=== PATIENT | female | born 1990 | race Caucasian/White ===

== ENCOUNTER 2019-09-27 17:52 | Observation (INO) | payer BC, SELFPAY ==
[2019-09-27 18:14] VITALS: BP 122/106; PULSE 112; RESP 16; TEMP 36.8; O2SAT 99; BMI 34.7
--- NOTE | 2019-09-27 18:19 | ED_ITS ---
Entered by Kamlesh Kaplan, acting as scribe for Jefferson Gatica DO HPI - Abdominal Pain General: Chief Complaint: Abdominal Pain Stated Complaint: right sided abd pain Time Seen by Provider: 09/27/19 18:27 History of Present Illness: HPI narrative: 29 yo female presents with abd pain. Pt states that she is having pain last night in the middle of the night. Pt states that she has had fever off and on since last night. Pt states that she has had diarrhea. MD elicited complaint: abdominal pain Associated Symptoms: Reports chills, diarrhea, fever(s) and nausea; Denies dysuria and hematuria Review of Systems Const: Reports: fever and chills Eyes: Denies: change in vision or blurry vision ENMT: Denies: painful swallowing, swelling of lips/tongue, bleeding gums, dental pain, Change in hearing, nose bleeds, post nasal drip or facial/sinus pain Card: Denies: chest pain, palpitations, irregular heart rhythm, edema, swelling of feet/ankles, shortness of breath on exertion or shortness of breath when lying down Resp: Denies: shortness of breath, productive cough, non-productive cough or wheezing GI: Reports: abdominal pain, nausea and diarrhea : Denies: painful urination, urinary frequency, urinary urgency or blood in urine Musc: Reports: back pain; Denies: neck pain, redness or joint warmth Skin/Breast: Denies: rash, itching or redness Neuro: Denies: headache, dizziness, vertigo, confusion or seizure-like activity Psych: Denies: anxiety Endo: Reports: other (pressure when she urinates) PFSH ED PFSH: Surgical History History of cholecystectomy Social History Smoking and tobacco status: current every day smoker Physical Exam Const: GENERAL APPEARANCE: well developed ORIENTATION/CONSCIOUSNESS: Yes oriented to person, Yes oriented to place and Yes oriented to time HENMT: COMMON NORMALS: normocephalic, external ears normal and external nose normal HEAD & SCALP: normocephalic; no scalp tenderness FACE & SINUS: normal facial exam NOSE: external nose normal and no nasal discharge EXTERNAL EAR: Yes external ears normal MOUTH: tongue normal TEETH & GINGIVA: no abnormal tooth and associated gingiva THROAT: posterior oropharynx normal; no peritonsillar mass Eye: COMMON NORMALS: PERRL, EOMs intact bilaterally and conjunctivae normal EYELID: eyelids normal CONJUNCTIVA: Yes conjunctivae normal PUPIL: Yes PERRL Chest: COMMONS NORMALS: inspection of chest normal CHEST: No tenderness Resp: COMMON NORMALS: clear to auscultation bilaterally EFFORT & INSPECTION: No tachypneic, No respiratory distress, No retractions, No uses accessory muscles and No tracheal deviation AUSCULTATION: clear to auscultation bilaterally, no rhonchi, no wheezes and lung sounds not diminished Cardio: COMMON NORMALS: regular rate and regular rhythm RATE: regular rate RHYTHM: regular rhythm HEART SOUNDS: no murmurs PERIPHERAL PULSES: radial pulses present GI: COMMON NORMALS: soft to palpation PALPATION: Yes soft and Yes tender Details: RLQ : BLADDER/KIDNEY EXAM: Yes CVA tenderness Back/Pelvis: GENERAL BACK: Yes CVA tenderness CVA tenderness: right Neuro: SENSORIUM/ORIENTATION: Yes oriented to person, Yes oriented to place and Yes oriented to time Psych: COMMON NORMALS: mental status grossly normal Skin: COMMON NORMALS: no rashes or lesions noted GENERAL SKIN EXAM: no rashes or lesions noted Course Consultations: Consultation #1: bossman Time: 20:36 Vital Signs: Vital signs: Vital Signs Temperature 98.5 F 09/28/19 17:35 Pulse Rate 95 09/28/19 17:35 Respiratory Rate 18 09/28/19 17:35 Blood Pressure 121/76 09/28/19 17:35 Pulse Oximetry 93 09/28/19 17:35 MDM - Abdominal Pain MDM Narrative: Medical decision making narrative: 29-year-old female with very focal right lower quadrant pain. Low-grade temps. No leukocytosis. Other lab oratory is benign. She has significant tenderness. CT reveals a metallic foreign body in or near her appendix. The read says no definite appendicitis surrounding, but this is very suspicious. Spoke with surgery. He will observe her for serial exams. Lab Data: Labs: Lab Results 09/27/19 09/27/19 09/27/19 Range/Units 18:30 18:30 18:30 WBC 13.5 H (4.0-10.0) 10^3/ uL RBC 4.99 (4.1-5.3) 10^6/u L Hgb 13.4 (11.5-15.3) g/dL Hct 41.8 (37.0-47.0) % MCV 83.8 (81-99) fL MCH 26.9 L (28.0-34.0) pg MCHC 32.1 (30.0-36.0) g/dL RDW 13.0 (12.1-15.1) % Plt Count 244 (130-400) 10^3/c mm MPV 10.8 H (7.4-10.4) fL Neut % (Auto) 73.9 % Lymph % (Auto) 18.8 % [place] % (Auto) 5.4 % Eos % (Auto) 1.5 % Baso % (Auto) 0.1 % Neut # (Auto) 10.0 H (1.8-7.7) 10^3/u L Lymph # (Auto) 2.5 (0.8-4.8) 10^3/u L [place] # (Auto) 0.7 (0.2-0.9) 10^3/u L Eos # (Auto) 0.2 (0.0-0.8) 10^3/u L Baso # (Auto) 0.0 (0.0-0.1) 10^3/u L Nucleated RBC % (a uto) 0 % Nucleated RBCs # 0.0 /100WBC Sodium 135 L (136-145) mmol/L Potassium 3.6 (3.5-5.1) mmol/L Chloride 97 L (98-107) mmol/L Carbon Dioxide 24 (22-29) mmol/L Anion Gap 17.6 (5-19) BUN 6 (6-20) mg/dL Creatinine 0.6 (0.5-0.9) mg/dL GFR Calculation 119.0 (90-130) mL/min Glucose 91 (65-115) mg/dL Lactate 1.0 (0.5-2.2) mmol/L Calcium 10.0 (8.5-10.5) mg/dL Total Bilirubin 0.3 (0.15-1.2) mg/dL AST 18 (0-32) U/L ALT 18 (0-33) U/L Alkaline Phosphata se 106 H (35-105) IU/L C-Reactive Protein 51.0 H (0.0-4.9) mg/L Total Protein 8.2 (6.6-8.7) g/dL Albumin 4.6 (3.5-5.2) g/dL Globulin 3.6 (1.3-4.6) g/dL Lipase 18 (13-60) U/L HCG, Qual (Negative) 09/27/19 Range/Units 18:30 WBC (4.0-10.0) 10^3/ uL RBC (4.1-5.3) 10^6/u L Hgb (11.5-15.3) g/dL Hct (37.0-47.0) % MCV (81-99) fL MCH (28.0-34.0) pg MCHC (30.0-36.0) g/dL RDW (12.1-15.1) % Plt Count (130-400) 10^3/c mm MPV (7.4-10.4) fL Neut % (Auto) % Lymph % (Auto) % [place] % (Auto) % Eos % (Auto) % Baso % (Auto) % Neut # (Auto) (1.8-7.7) 10^3/u L Lymph # (Auto) (0.8-4.8) 10^3/u L [place] # (Auto) (0.2-0.9) 10^3/u L Eos # (Auto) (0.0-0.8) 10^3/u L Baso # (Auto) (0.0-0.1) 10^3/u L Nucleated RBC % (a uto) % Nucleated RBCs # /100WBC Sodium (136-145) mmol/L Potassium (3.5-5.1) mmol/L Chloride (98-107) mmol/L Carbon Dioxide (22-29) mmol/L Anion Gap (5-19) BUN (6-20) mg/dL Creatinine (0.5-0.9) mg/dL GFR Calculation (90-130) mL/min Glucose (65-115) mg/dL Lactate (0.5-2.2) mmol/L Calcium (8.5-10.5) mg/dL Total Bilirubin (0.15-1.2) mg/dL AST (0-32) U/L ALT (0-33) U/L Alkaline Phosphata se (35-105) IU/L C-Reactive Protein (0.0-4.9) mg/L Total Protein (6.6-8.7) g/dL Albumin (3.5-5.2) g/dL Globulin (1.3-4.6) g/dL Lipase (13-60) U/L HCG, Qual Negative (Negative) Discharge Plan Discharge Patient Disposition: Admitted As Inpatient Admit Provider: Jorge Maldonado Condition: Stable Discharge Orders: Discharge Order (Routine); Ordered 09/28/19 Ordered By: Jorge Maldonado Referrals: Jorge Maldonado MD [Physician] - 2 weeks (Please call Sunday to set up a follow up appointment) Patient Instructions: Hydrocodone/Acetaminophen (By mouth), Laxative, Stool Softeners (By mouth), Laparoscopic Appendectomy (DC) Discharge Date/Time: 09/27/19 21:25 Coding Level of Care Code ED Medical Pathology Teacher for Chg Fwd Exam Comprehensive The documentation recorded by the Eusebio gambino Kialy, accurately reflects the service I personally performed and the decisions made by En lutz Jeremy John, DO Sep 27, 2019 17:52
--- NOTE | 2019-09-27 18:37 | CTR_ITS ---
PROCEDURE INFORMATION: Exam: CT Abdomen And Pelvis With Contrast Exam date and time: 09/27/2019 7:38 PM Age: 29 years old Clinical indication: Abdominal pain; Localized; Right; Prior surgery; Surgery date: 6+ months; Surgery type: Gb; Patient HX: C/O R sided abd pain w n/v/d since yesterday; Additional info: Rlq pain TECHNIQUE: Imaging protocol: Computed tomography of the abdomen and pelvis with intravenous contrast. Total DLP: 1131.42 mGy-cm Radiation optimization: All CT scans at this facility use at least one of these dose optimization techniques: automated exposure control; mA and/or kV adjustment per patient size (includes targeted exams where dose is matched to clinical indication); or iterative reconstruction. Contrast material: OMNI 300; Contrast volume: 95 ml; Contrast route: 20G; COMPARISON: CT abdomen pelvis w con* [id number] 12/27/2016 12:31 PM FINDINGS: Lungs: A calcified granuloma is present in the right lower lobe. Liver: Normal. No mass. Gallbladder and bile ducts: The gallbladder has been removed. No biliary ductal dilatation. Pancreas: Normal. No ductal dilation. Spleen: Normal. No splenomegaly. Adrenals: Normal. No mass. Kidneys and ureters: Normal. No hydronephrosis. Stomach and bowel: Unremarkable. No obstruction. No mucosal thickening. Appendix: A tiny metallic density foreign body is present in the proximal appendix. The appendix appears otherwise normal. No evidence of acute appendicitis. Intraperitoneal space: Trace free fluid in the pelvis is likely physiologic. Vasculature: Unremarkable. No abdominal aortic aneurysm. Lymph nodes: Unremarkable. No enlarged lymph nodes. Bladder: Unremarkable as visualized. Reproductive: The uterus and ovaries appear normal. Bones/joints: Unremarkable. No acute fracture. Soft tissues: Unremarkable. CT/CT abdomen pelvis w con* [id number] IMPRESSION: No acute abnormality is seen. A metallic density object is present in the proximal appendix. No evidence of acute appendicitis. Radiation Dose CTDIVOL = (mGy): DLP = 1131.42 (mGy-cm)
[2019-09-27 18:38] VITALS: O2SAT 97
[2019-09-27] MEDS: sodium chloride 0.9% 1,000 ML 999 ML IV (18:52)
[2019-09-27] MEDS: ketorolac 30 mg/mL INJ IVP (18:55)
[2019-09-27] MEDS: ondansetron 2 mg/ML SDV 2 mL 4 MG IVP (18:55)
[2019-09-27] MEDS: morphine 4 mg/mL SDV 1 mL IVP ×2 (18:56→23:12)
[2019-09-27 19:05] LABS: Basophils % 0.1 %; Eosinophils # 0.2 10^3/uL (0.0-0.8); Eosinophils % 1.5 %; Hematocrit 41.8 % (37.0-47.0); Hemoglobin 13.4 g/dL (11.5-15.3); Lymphocytes # 2.5 10^3/uL (0.8-4.8); Lymphocytes % 18.8 %; Mean Corpuscular HGB Conc 32.1 g/dL (30.0-36.0); Mean Corpuscular Hemoglobin 26.9 pg (28.0-34.0); Mean Corpuscular Volume 83.8 fL (81-99); Mean Platelet Volume 10.8 fL (7.4-10.4); Monocytes # 0.7 10^3/uL (0.2-0.9); Monocytes % 5.4 %; Neutrophils % 73.9 %; Nucleated Red Blood Cells % 0 %; Platelet Count 244 10^3/cmm (130-400); Red Blood Count 4.99 10^6/uL (4.1-5.3); White Blood Count 13.5 10^3/uL (4.0-10.0)
[2019-09-27 19:12] LABS: HCG, Serum Qual Negative (Negative)
[2019-09-27 19:14] LABS: Alanine Aminotransferase 18 U/L (0-33); Albumin Level 4.6 g/dL (3.5-5.2); Alkaline Phosphatase 106 IU/L (35-105); Anion Gap 17.6 (5-19); Aspartate Amino Transferase 18 U/L (0-32); Blood Urea Nitrogen 6 mg/dL (6-20); Carbon Dioxide 24 mmol/L (22-29); Chloride 97 mmol/L (98-107); Globulin 3.6 g/dL (1.3-4.6); Glucose 91 mg/dL (65-115); Lipase 18 U/L (13-60); Potassium 3.6 mmol/L (3.5-5.1); Sodium 135 mmol/L (136-145); Total Bilirubin 0.3 mg/dL (0.15-1.2); Total Protein 8.2 g/dL (6.6-8.7)
[2019-09-27] MEDS: iohexol 300 mg/mL 100 mL Btl IV (19:45)
[2019-09-27 19:53] VITALS: RESP 16
[2019-09-27] MEDS: HYDROmorphone 1 mg/mL INJ 1 mL IVP (19:53)
[2019-09-27] MEDS: piperacillin-tazobactam 3.375 GM in sodium chloride 0.9% (plus) 50 ML IV (21:05)
[2019-09-27 21:24] VITALS: BP 115/66; PULSE 109; RESP 18; O2SAT 95
[2019-09-27 21:35] LABS: Add Urine Microscopic? NO
[2019-09-27 21:37] LABS: Bilirubin Urine Neg (NEGATIVE); Blood Urine Neg (Negative); Glucose Urine UA Norm (Normal); Ketones Urine Negative (Negative); Leukocyte Esterase Urine Negative (Negative); Nitrate Urine Negative (Negative); Protein Urine Neg (Negative); Urine Appearance Clear (CLEAR); Urine Color Straw (Yellow); Urobilinogen Urine Norm (Negative); pH Urine 6 (5-7)
[2019-09-27 22:04] VITALS: BP 115/78; PULSE 99; RESP 18; TEMP 37; O2SAT 96
[2019-09-27] MEDS: sodium chloride 0.9% 1,000 ML 150 ML IV (23:10)
[2019-09-27 23:12] VITALS: RESP 18; O2SAT 99
[2019-09-28] VITALS (18 sets, daily range): BP systolic 95–126; BP diastolic 64–85; PULSE 75–100; RESP 12–22; TEMP 36.3–36.9; O2SAT 91–100
[2019-09-28] MEDS: lanolin oint 7 gm 1 APPLIC TOPICAL (01:07)
--- NOTE | 2019-09-28 01:21 | PC.NURSE ---
Patient was informed by this nurse that her diet had changed to NPO tonight as her brought food in for her. She asked that I request permission for her to eat since she was told in the ED that should would be able to eat until midnight. This nurse walked out of the room and called Dr. Maldonado if should could eat her dinner, to which he ordered her clear liquid until midnight, then NPO after midnight. Upon entering patient room to inform her of the doctors decision, she had already consumed her entire meal. Patient stated, she had already taken a bite, so she didn't figure it would make any difference now. Last food consumed would be approximately 2230. Patient was educated on her diet plan and the risks eating and drinking before surgery.
[2019-09-28] MEDS: piperacillin-tazobactam 3.375 GM in sodium chloride 0.9% (plus) 50 ML IV (05:33)
[2019-09-28] MEDS: sodium chloride 0.9% 1,000 ML 150 ML IV ×2 (05:40→11:32)
[2019-09-28 05:46] LABS: Basophils % 0.1 %; Eosinophils # 0.2 10^3/uL (0.0-0.8); Eosinophils % 1.8 %; Hematocrit 37.7 % (37.0-47.0); Hemoglobin 11.9 g/dL (11.5-15.3); Lymphocytes # 2.7 10^3/uL (0.8-4.8); Lymphocytes % 28.9 %; Mean Corpuscular HGB Conc 31.6 g/dL (30.0-36.0); Mean Corpuscular Hemoglobin 27.9 pg (28.0-34.0); Mean Corpuscular Volume 88.3 fL (81-99); Mean Platelet Volume 10.8 fL (7.4-10.4); Monocytes # 0.7 10^3/uL (0.2-0.9); Monocytes % 6.8 %; Neutrophils # 5.9 10^3/uL (1.8-7.7); Neutrophils % 62.1 %; Nucleated Red Blood Cells % 0 %; Platelet Count 204 10^3/cmm (130-400); Red Blood Count 4.27 10^6/uL (4.1-5.3); Red Cell Distribution Width 13.2 % (12.1-15.1); White Blood Count 9.5 10^3/uL (4.0-10.0)
[2019-09-28 06:05] LABS: Alanine Aminotransferase 198 U/L (0-33); Albumin Level 3.6 g/dL (3.5-5.2); Alkaline Phosphatase 103 IU/L (35-105); Anion Gap 13.6 (5-19); Aspartate Amino Transferase 225 U/L (0-32); Blood Urea Nitrogen 7 mg/dL (6-20); Calcium 8.9 mg/dL (8.5-10.5); Carbon Dioxide 25 mmol/L (22-29); Chloride 105 mmol/L (98-107); Globulin 2.7 g/dL (1.3-4.6); Glucose 105 mg/dL (65-115); Potassium 3.6 mmol/L (3.5-5.1); Sodium 140 mmol/L (136-145); Total Bilirubin 0.2 mg/dL (0.15-1.2); Total Protein 6.3 g/dL (6.6-8.7)
--- NOTE | 2019-09-28 07:15 | PC.NURSE ---
Patient taken to OR.
--- NOTE | 2019-09-28 07:43 | ANES.PREANE2 ---
Pre-Anesthetic Assessment Pre-Anesthetic Assessment: Height/Weight: Height 1.57 m Weight 86.183 kg Temp Pulse Resp BP Pulse Ox 97.9 F 86 18 95/65 94 09/28/19 04:00 09/28/19 04:00 09/28/19 04:00 09/28/19 04:00 09/28/19 04:00 Preop Diagnosis: Appendicitis Proposed Procedure: Operation Date: 09/28/19 08:20 Proposed Procedures p Laparoscopic Appendectomy, possible open(Not Applicable) - Jorge Maldonado MD Familial anesthetic complications: Hard time coming out of it Was Beta Noel taken within 24 hours: N/A Last intake: Intake Last Liquid Date 09/27/19 Last Liquid Time 23:55 Last Solid Date 09/27/19 Last Solid Time 22:30 Social: Social History: Tobacco and No alcohol Packs per day: 0.5 ppd Exam: Pre-Anes Outpt Exam: alert, oriented x 3, clear to auscultation bilaterally and regular rate & rhythm Airway: Cervical ROM: WNL MP: 2 Additional comments: missing Pulmonary: Pulmonary: None reported CV/HEM: CV/HEM: None reported : : None reported Hepatic: Hepatic: None reported GI: GI: GERD Metabolic: Metabolic: None reported Musc/skel: Musc/skel: None reported Neuropsych: Neuropsych: None reported Anesthetic Plan: ASA status: 2E Anesthesia: General Risk of > 500 ml blood loss (7ml/kg in children): No Meds/Allergies Current Medications: Current Medications Generic Name Dose Route Start Last Admin Trade Name Freq PRN Reason Stop Dose Admin Sodium Chloride 1,000 mls @ 150 m ls/hr 09/27/19 22:04 09/28/19 05:40 Sodium Chloride 0.9% IV 150 mls/hr .Q6H40M SAMMY Administration Piperacillin Sod/T azobactam 50 mls @ 12.5 mls /hr 09/27/19 22:30 09/28/19 05:33 Sod 3.375 gm/ So dium Chloride IV 12.5 mls/hr Q8H SAMMY Administration Protocol As Directed Lanolin 1 applic 09/28/19 00:58 09/28/19 01:07 Lanolin Oint TOPICAL 1 tube PRN PRN Administration DRYNESS Morphine Sulfate 4 mg 09/27/19 22:04 09/27/19 23:12 Morphine IVP 4 mg Q4H PRN Administration SEVERE PAIN PFSH Anesthesia PFSH: Surgical History (Updated 09/27/19 @ 18:36 by Kamlesh Kaplan) History of cholecystectomy Social History Smoking and tobacco status: current every day smoker Female Reproductive History: Date of last menstrual period: 09/11/19 Data Anesthesia CBC & Chem 7: 09/28/19 05:07 09/28/19 05:07 Other Labs: Laboratory Results - last 48 hr 09/27/19 09/27/19 09/27/19 18:30 18:30 18:30 WBC 13.5 H RBC 4.99 Hgb 13.4 Hct 41.8 MCV 83.8 MCH 26.9 L MCHC 32.1 RDW 13.0 Plt Count 244 MPV 10.8 H Neut % (Auto) 73.9 Lymph % (Auto) 18.8 [place] % (Auto) 5.4 Eos % (Auto) 1.5 Baso % (Auto) 0.1 Neut # (Auto) 10.0 H Lymph # (Auto) 2.5 [place] # (Auto) 0.7 Eos # (Auto) 0.2 Baso # (Auto) 0.0 Nucleated RBC % (auto) 0 Nucleated RBCs # 0.0 Sodium 135 L Potassium 3.6 Chloride 97 L Carbon Dioxide 24 Anion Gap 17.6 BUN 6 Creatinine 0.6 GFR Calculation 119.0 Glucose 91 Lactate 1.0 Calcium 10.0 Total Bilirubin 0.3 AST 18 ALT 18 Alkaline Phosphatase 106 H C-Reactive Protein 51.0 H Total Protein 8.2 Albumin 4.6 Globulin 3.6 Lipase 18 HCG, Qual Urine Color Urine Appearance Urine pH Ur Specific [place] Urine Protein Urine Glucose (UA) Urine Ketones Urine Blood Urine Nitrate Urine Bilirubin Urine Urobilinogen Ur Leukocyte Esterase 09/27/19 09/27/19 09/28/19 18:30 21:16 05:07 WBC 9.5 RBC 4.27 Hgb 11.9 Hct 37.7 MCV 88.3 D MCH 27.9 L MCHC 31.6 RDW 13.2 Plt Count 204 MPV 10.8 H Neut % (Auto) 62.1 Lymph % (Auto) 28.9 [place] % (Auto) 6.8 Eos % (Auto) 1.8 Baso % (Auto) 0.1 Neut # (Auto) 5.9 Lymph # (Auto) 2.7 [place] # (Auto) 0.7 Eos # (Auto) 0.2 Baso # (Auto) 0.0 Nucleated RBC % (auto) 0 Nucleated RBCs # 0.0 Sodium Potassium Chloride Carbon Dioxide Anion Gap BUN Creatinine GFR Calculation Glucose Lactate Calcium Total Bilirubin AST ALT Alkaline Phosphatase C-Reactive Protein Total Protein Albumin Globulin Lipase HCG, Qual Negative Urine Color Straw Urine Appearance Clear Urine pH 6 Ur Specific [place] 1.000 L Urine Protein Neg Urine Glucose (UA) Norm Urine Ketones Negative Urine Blood Neg Urine Nitrate Negative Urine Bilirubin Neg Urine Urobilinogen Norm Ur Leukocyte Esterase Negative 09/28/19 05:07 WBC RBC Hgb Hct MCV MCH MCHC RDW Plt Count MPV Neut % (Auto) Lymph % (Auto) [place] % (Auto) Eos % (Auto) Baso % (Auto) Neut # (Auto) Lymph # (Auto) [place] # (Auto) Eos # (Auto) Baso # (Auto) Nucleated RBC % (auto) Nucleated RBCs # Sodium 140 Potassium 3.6 Chloride 105 Carbon Dioxide 25 Anion Gap 13.6 BUN 7 Creatinine 0.6 GFR Calculation 119.0 Glucose 105 Lactate Calcium 8.9 Total Bilirubin 0.2 AST 225 H ALT 198 H Alkaline Phosphatase 103 C-Reactive Protein Total Protein 6.3 L D Albumin 3.6 Globulin 2.7 Lipase HCG, Qual Urine Color Urine Appearance Urine pH Ur Specific [place] Urine Protein Urine Glucose (UA) Urine Ketones Urine Blood Urine Nitrate Urine Bilirubin Urine Urobilinogen Ur Leukocyte Esterase Cardiac Studies: No Data to Display
[2019-09-28] MEDS: sodium chloride 0.9% 1,000 ML 100 ML IV (07:44)
--- NOTE | 2019-09-28 07:46 | P.HP_ITS ---
Providers/Chief Complaint Admitting Physician: Jorge Maldonado MD Primary Care Provider: Mendoza Paredes MD Chief Complaint: right sided abd pain History of Present Illness Sharri Alvarado is a 29 year old female who presented to the ER last night with 24-hour history of right-sided abdominal pain. Patient states that day before yesterday she had nausea and vomiting most of the day and subsequently that night she woke up with right-sided abdominal pain which persisted through whole of yesterday. She was admitted to the hospital for observation and today she complains of right lower quadrant pain associated nausea. No fevers or chills. She has loose stools but denies any diarrhea. She states that she has a history of ovarian cysts in the past Review of Systems General: Reports: 10 or more systems reviewed and unremarkable except in HPI and below Medications/Allergies Home Medications Medication Instructions Recorded Confirmed Last Taken Type multivitamin 1 tab PO DAILY 09/27/19 09/27/19 Unknown History ondansetron HCl [Zofran] 4 - 8 mg PO Q6H PRN 09/27/19 09/27/19 09/26/19 History 8 mg Allergies Allergy/AdvReac Type Severity Reaction Status Date / Time No Known Allergies Allergy Verified 09/27/19 18:18 PFSH Acute PFSH: Surgical History History of cholecystectomy Social History Smoking and tobacco status: current every day smoker Female Reproductive History: Date of last menstrual period: 09/11/19 Vitals/I&O/Wt Last Vital Signs Temp 97.9 F 09/28/19 04:00 Pulse 86 09/28/19 04:00 Resp 18 09/28/19 04:00 BP 95/65 09/28/19 04:00 Pulse Ox 94 09/28/19 04:00 09/27/19 09/28/19 09/28/19 22:59 06:59 14:59 Intake Total 1000 / 2935 1935 / 2935 300 / 300 Output Total 450 / 450 Balance 1000 / 2485 1485 / 2485 300 / 300 Weight last 48 hrs Weight 190 lb Physical Exam Narrative: EXAM NARRATIVE: HEENT: Normocephalic Eye: Sclera /conjunctiva normal Respiratory and chest: Bilateral clear breath sounds on auscultation Cardiovascular: Normal S1 and S2 heart sounds Abdomen: Soft to palpation, tender right lower quadrant Neurological: Oriented to place person and time Skin: Intact, no lesions appreciated on gross exam Data : 09/28/19 05:07 09/28/19 05:07 A&P Assessment and plan (1) Right lower quadrant pain: 29-year-old female with right lower quadrant pain, nausea and vomiting. CT scan showed no significant periappendiceal stranding though she is tender in the right lower quadrant. Her white count is elevated at 14 on initial presentation. There was no cyst noted on CT scan and there is no significant free fluid in the pelvis to suggest a ruptured ovarian cyst. Did discuss with the patient that the findings of the CT scan was not very impressive and that she could have other etiology that could mimic appendicitis, either way we will take the appendix out. Status: Acute Code(s): R10.31 - Right lower quadrant pain Attestations Medical Necessity Statement*: Right lower quadrant pain, most likely clinically appears to be acute appendicitis, plan for laparoscopic possible open appendectomy Coding Level of Care Code Acute Sports Activities Foul Judge for [facility] Justine Diagnoses Right lower quadrant pain R10.31
--- NOTE | 2019-09-28 09:05 | PM.OP ---
Operative Report Date of procedure: September 28, 2019 Pre-op Diagnosis: Appendicitis Post-op Diagnosis: Normal appendix Ruptured hemorrhagic cyst Procedure Done: Laparoscopic appendectomy Pathology: Appendix Surgeon: Jorge Maldonado Anesthesia: General Condition: stable Disposition: PACU Procedure: The patient was taken to the Operating Room and intubated under general anesthesia after antibiotic had been administered. Using a 15 blade, a 1-cm infraumbilical incision was made and using open Katherine technique, the peritoneal cavity was entered. A 12mm port with balloon was placed and 15 mm of pneumoperitoneum was created and 10-mm 30 degree scope was introduced. Two separate 5mm ports were placed in the left and right lower quadrant under direct visualization. The appendix was noted in the right lower quadrant and appeared normal the ileum and jejunum was examined and there is no evidence of Meckel's diverticulum or any other pathology though a small amount of hemorrhagic fluid noted in the pelvis likely secondary to ruptured ovarian cyst though no other cyst was noted on the ovary. Using [place] forceps, an opening was made in the mesoappendix near the base of the appendix. An Endo JOHNNY stapler 45mm long 3.5mm blue load was introduced to divide the appendix at it's base. Using electrocautery, the mesoappendix including the appendicular artery was divided. There was no bleeding noted and the staple line appeared intact. The right lower quadrant was irrigated with saline and an EndoCatch bag was introduced to remove the appendix. All three ports were removed under direct visualization and there was no bleeding noted on the port sites. 10 cc of 0.5% Marcaine was infiltrated at the port sites. The fascia at the umbilical port was closed using figure of eight 0-Vicryl sutures and subcutaneous tissue was approximated using 3-0 Vicryl and skin at all 3 port sites was closed using 4-0 Monocryl and Dermabond.
[2019-09-28] MEDS: fentaNYL 50 mcg/mL INJ 2mL IVP ×2 (09:28→09:33)
--- NOTE | 2019-09-28 10:24 | PC.NURSE ---
PATIENT BACK TO FLOOR FROM OR.
[2019-09-28] MEDS: HYDROcodone-acetaminophen 5-325 mg Tablet 1 TAB PO (11:27)
--- NOTE | 2019-09-28 12:05 | PC.CHAP ---
Pastoral Care Encounter/Spiritual Assessment Type of Contact [] Declined fiberglass container winding operator visit [] Patient/Family/Request visit [] Outpatient visit [] Follow-up visit [] Physician referral [] Code/Alert [] Routine visit [] Staff referral [] Actively dying [] Patient sleeping [] Family support [] [] Out of room [] Palliative care [] [] Receiving care in room [] Pre-surgical visit [] Trauma [] Long length of stay [] ICU visit [] Other: Relational/Emotional Strength [x] Patient feels connected with others/family/visitors/staff [] Distress [] Loneliness/isolation [] Abandonment Spirituality of Patient [x] Person of Demetria [] Attends Restorationist of their Demetria [x] Believes in Prayer [] Reads Bible or Advent materials [] There are Spiritual issues to be addressed Can Technician Interventions [x] Prayer [x] Active listening [x] Non-anxious presence [x] Spiritual/emotional support [] Crisis/trauma care [] Spiritual counseling [] Bereavement support [] Provided bereavement packet [] Provided Bible/devotional materials [] Provided toy/stuffed animal, coloring book to patient or family member [] Provided Communion [] Anointing/[place] [] Salvation [x] Completed spiritual assessment [] Other: Impact on Illness or Injury [] Angry [] Fearful [] Anxious [] Often cries [] Exhaustion [] Unable to work [] Unable to attend moravian [] Unable to walk/stand [] Unable to read [] Unable to drive [] Unable to eat/drink [] Unable to sleep [] Unable to be with family [] Patient intubated [] Other: Summary Chaplains prayed with patient, family member and staff. Time spent with patient 15 minutes.
--- NOTE | 2019-09-28 16:41 | PC.NURSE ---
DISCHARGE SUMMARY Patient was given discharge orders. Follow up appointment is to be made by patient on Sunday. Prescriptions and script given to patient. Iv discontinued and vital signs stable.
== END 2019-09-28 16:00 | disposition home or self-care (01) ==
LOC: ER 19:24 → MEDSURG 20:54
PROVIDERS: Admitting Provider Surgery; Emergency Provider Emergency Medicine; Family Provider Family Medicine; PCP Family Medicine; Visit Provider Surgery
PROC: 0DTJ4ZZ Resection of Appendix, Percutaneous Endoscopic Approach (ICD-10-PCS; CPT 44970; principal; 2019-09-28 08:00)
DX: K35.80 Unspecified acute appendicitis (principal); F17.210 Nicotine dependence, cigarettes, uncomplicated
CPT/HCPCS: 44970; 12345; 36415; 74177; 80053; 81003; 83605; 83690; 84703; 85025; 86140; 88304; 96361; 96365; 96374; 96375; 99283; 99285; A9270; G0378; J0131; J0330; J1100; J1170; J1885; J2001; J2250; J2270; J2405; J2543; J2704; J3010; J3490; J7030; Q9967

== ENCOUNTER 2020-07-09 14:05 | Emergency (ER) | payer BC, MEDICAID, SELFPAY ==
[2020-07-09 14:23] VITALS: BP 146/85; PULSE 86; RESP 18; TEMP 37; O2SAT 100; BMI 34.8
--- NOTE | 2020-07-09 14:48 | W.ED.NAVMDI ---
Documented by User: GENTRY Cope 07/09/20 17:05 HPI - Nausea/Vomiting/Diarrhea General: Chief complaint: Nausea/Vomiting/Diarrhea Stated complaint: 8 WKS PREG, VOMITING Time Seen by Provider: 07/09/20 14:28 Source: patient Mode of arrival: ambulatory Limitations: no limitations History of Present Illness: HPI Narrative: 29-year-old female comes in today for complaints of nausea and vomiting. Patient is 8 weeks . Patient denies any fever. Patient reports having a awful taste in her mouth all the time. Patient had COVID-19 in April of this year. Patient appears well. Patient appears no acute distress. MD elicited complaint: nausea and vomiting Review of Systems General: Reports: 10 or more systems reviewed and unremarkable except in HPI and below GI: Reports: nausea and vomiting PFSH ED PFSH: Medical History Ovarian cyst Surgical History History of cholecystectomy Status post laparoscopic appendectomy Social History Smoking and tobacco status: current every day smoker Female Reproductive History: Date of last menstrual period: 09/11/19 Physical Exam Const: COMMON NORMALS: no acute distress and patient oriented x3 GENERAL APPEARANCE: cooperative HENMT: COMMON NORMALS: normocephalic and Normal external nose present HEAD & SCALP: normal to inspection and normocephalic NOSE: Normal external nose present MOUTH: Normal oral and palatal mucosa present THROAT: posterior oropharynx normal Eye: GENERAL EYE: appearance normal, both eyes and all related structures Neck/C-Spine: COMMON NORMALS: full ROM Lymph: LYMPHATIC: no lymphadenopathy noted Chest: COMMONS NORMALS: normal inspection of the chest Resp: COMMON NORMALS: normal respiratory effort EFFORT & INSPECTION: Yes able to speak in complete sentences Cardio: COMMON NORMALS: regular rate and regular rhythm RATE: regular rate RHYTHM: regular rhythm GI: COMMON NORMALS: non-tender : COMMON NORMALS: Yes no CVA tenderness BLADDER/KIDNEY EXAM: Yes no CVA tenderness Back/Pelvis: COMMON NORMALS: no CVA tenderness and thoracic and lumbar spine normal to inspection Extremity: COMMON NORMALS: normal to inspection Neuro: COMMON NORMALS: patient oriented x3 and moves all extremities Psych: COMMON NORMALS: mental status grossly normal and cooperative Skin: COMMON NORMALS: no rashes or lesions noted GENERAL SKIN EXAM: no rashes or lesions noted Course ED course: 1700, reviewed with Branden, whom agreed to assume care of patient. ww Vital Signs: Vital signs: Vital Signs Temperature 98.6 F 07/09/20 19:05 Pulse Rate 76 07/09/20 19:05 Respiratory Rate 18 07/09/20 19:05 Blood Pressure 103/61 07/09/20 19:05 Pulse Oximetry 96 07/09/20 19:05 MDM - Nausea/Vomiting/Diarrhea Lab Data: Labs: Lab Results 07/09/20 07/09/20 07/09/20 Range/Units 16:05 16:05 16:52 WBC 9.1 (4.0-10.0) 10^3/ uL RBC 4.97 (4.1-5.3) 10^6/u L Hgb 13.3 (11.5-15.3) g/dL Hct 40.0 (37.0-47.0) % MCV 80.5 L (81-99) fL MCH 26.8 L (28.0-34.0) pg MCHC 33.3 (30.0-36.0) g/dL RDW 13.5 (12.1-15.1) % Plt Count 267 (130-400) 10^3/c mm MPV 10.4 (7.4-10.4) fL Neut % (Auto) 64.0 % Lymph % (Auto) 29.8 % [place] % (Auto) 4.6 % Eos % (Auto) 1.1 % Baso % (Auto) 0.3 % Neut # (Auto) 5.79 (1.8-7.7) 10^3/u L Lymph # (Auto) 2.7 (0.8-4.8) 10^3/u L [place] # (Auto) 0.4 (0.2-0.9) 10^3/u L Eos # (Auto) 0.1 (0.0-0.8) 10^3/u L Baso # (Auto) 0.0 (0.0-0.1) 10^3/u L Nucleated RBC % (a uto) 0 % Nucleated RBCs # 0.0 /100WBC Sodium 134 L (136-145) mmol/L Potassium 3.5 (3.5-5.1) mmol/L Chloride 100 (98-107) mmol/L Carbon Dioxide 21 L (22-29) mmol/L Anion Gap 16.5 (5-19) BUN 7 (6-20) mg/dL Creatinine 0.5 (0.5-0.9) mg/dL GFR Calculation 146.9 H (90-130) mL/min Glucose 80 (65-115) mg/dL Calculated Osmolal ity 275 L (285-295) mOsm/k g Calcium 9.5 (8.5-10.5) mg/dL Total Bilirubin 0.4 (0.15-1.2) mg/dL AST 19 (0-32) U/L ALT 19 (0-33) U/L Alkaline Phosphata se 63 (35-105) IU/L Total Protein 7.6 (6.6-8.7) g/dL Albumin 4.7 (3.5-5.2) g/dL Globulin 2.9 (1.3-4.6) g/dL Urine Color Yellow (Yellow) Urine Appearance Sl hazy (CLEAR) Urine pH 5 (5-7) Ur Specific Gravit y 1.030 (1.005-1.030) Urine Protein Neg (Negative) Urine Glucose (UA) Norm (Normal) Urine Ketones 3+ H (Negative) Urine Blood 2+ H (Negative) Urine Nitrate Negative (Negative) Urine Bilirubin Neg (Negative) Urine Urobilinogen Norm (Negative) mg/dL Ur Leukocyte Selena ase Negative (Negative) Urine RBC 5-10 H (0-2) /hpf Urine WBC 0-4 H (0-5) /hpf Ur Squamous Epith Cells 0-4 H (0-5) /hpf Amorphous Sediment Not Reportable Urine Bacteria Trace (NONE) /hpf Urine Mucus 4+ /hpf Discharge Plan Discharge Patient Disposition: Home Clinical Impression: Vomiting during Condition: Stable Prescriptions: New Reglan 10 mg tablet 10 mg PO Q6H PRN (Reason: nausea and vomiting) Qty: 30 RF: 0 No Action ondansetron HCl [Zofran] 4 mg Tablet 4 - 8 mg PO Q6H PRN (Reason: Nausea) RF: 0 iron 325 mg (65 mg iron) Tablet 325 mg PO DAILY@19 RF: 0 Vitamin B-6 100 mg Tablet 100 mg PO DAILY@19 RF: 0 Unisom (doxylamine) 25 mg Tablet 25 mg PO DAILY@19 RF: 0 folic acid 800 mcg Tablet 0.8 mg PO DAILY@19 RF: 0 Gummies 400 mcg-35 mg- 25 mg-5 mg Tablet,Chewable 2 tab PO DAILY@19 RF: 0 Discharge Orders: Discharge ED (Routine); Ordered 07/09/20 Ordered By: Mendoza Levin Referrals: Mendoza Paredes MD [Primary Care Provider] - Discharge Diet: Advance as tolerated Discharge Activity: Resume usual activity Patient Instructions: Morning Sickness (ED), Acute Nausea and Vomiting (ED) Activity Restrictions/Additional Instructions: Follow-up with medical provider as directed. Go to your scheduled OB doctor's appointment next for reevaluation. Take medications as prescribed. Try taking the newly prescribed Reglan to help with nausea. Make sure to drink plenty of fluids and stay hydrated and eat throughout the day. Return to the ER or your medical provider if condition worsens. Please read and understand discharge instructions. If any questions, please ask. Sign Out Sign Out Data: Patient Sign Out occurred on 07/09/20 at 17:12. Patient's care was discussed, and care was transferred from Cleveland White to HUY Kaplan. Sign Out Comment: awaiting urine results, ww Last updated by Cleveland White FNP at 07/09/20 17:06 Coding Level of Care Code ED Medical And Scientific Illustrator for Chg Fwd Exam Comprehensive Documented by User: HUY Kaplan 07/10/20 02:50 HPI - Nausea/Vomiting/Diarrhea General: Chief complaint: Nausea/Vomiting/Diarrhea Stated complaint: 8 WKS PREG, VOMITING Time Seen by Provider: 07/09/20 14:28 History of Present Illness: Associated nausea: Yes Associated symtoms: Reports nausea; Denies dysuria Review of Systems GI: Reports: nausea and vomiting; Denies: abdominal pain, diarrhea or constipation : Denies: dysuria, urinary frequency, urinary urgency, hematuria, vaginal bleeding or vaginal discharge [facility] ED PFSH: Medical History Ovarian cyst Surgical History History of cholecystectomy Status post laparoscopic appendectomy Social History Smoking and tobacco status: current every day smoker Course Reevaluation(s): Reevaluation #1: Patient has been able to eat crackers, drink Sprite and a chocolate pudding and has kept it down. She has had no other episodes of emesis here in the ED since she received Reglan and IV fluids. Patient does say she feel better after the IV fluids and nausea meds. Time: 18:19 Vital Signs: Vital signs: Vital Signs Temperature 98.6 F 07/09/20 19:05 Pulse Rate 76 07/09/20 19:05 Respiratory Rate 18 07/09/20 19:05 Blood Pressure 103/61 07/09/20 19:05 Pulse Oximetry 96 07/09/20 19:05 MDM - Nausea/Vomiting/Diarrhea MDM Narrative: Medical decision making narrative: Patient is a 29-year-old female that is approximately 8 weeks comes to the ED with nausea and vomiting. She is currently been taking Zofran, but that has not helped her with her nausea. Denies abdominal pain, UTI symptoms, vaginal discharge or vaginal bleeding. CBC, CMP and UA were unremarkable. Vital signs are stable. While here in the ED patient's nausea and vomiting were controlled with 2 L of IV fluids and Reglan. Patient was able to eat and drink here in the ED and keep food and fluids down. Patient was discharged and told to follow-up with her OB at her scheduled appointment next . She was sent with a prescription for Reglan to help with nausea. Return to ED precautions given. Patient understood and agreed with plan. Lab Data: Attestation: I reviewed the patient's lab results. Labs: Lab Results 07/09/20 07/09/20 07/09/20 Range/Units 16:05 16:05 16:52 WBC 9.1 (4.0-10.0) 10^3/ uL RBC 4.97 (4.1-5.3) 10^6/u L Hgb 13.3 (11.5-15.3) g/dL Hct 40.0 (37.0-47.0) % MCV 80.5 L (81-99) fL MCH 26.8 L (28.0-34.0) pg MCHC 33.3 (30.0-36.0) g/dL RDW 13.5 (12.1-15.1) % Plt Count 267 (130-400) 10^3/c mm MPV 10.4 (7.4-10.4) fL Neut % (Auto) 64.0 % Lymph % (Auto) 29.8 % Bremer % (Auto) 4.6 % Eos % (Auto) 1.1 % Baso % (Auto) 0.3 % Neut # (Auto) 5.79 (1.8-7.7) 10^3/u L Lymph # (Auto) 2.7 (0.8-4.8) 10^3/u L [place]mer # (Auto) 0.4 (0.2-0.9) 10^3/u L Eos # (Auto) 0.1 (0.0-0.8) 10^3/u L Baso # (Auto) 0.0 (0.0-0.1) 10^3/u L Nucleated RBC % (a uto) 0 % Nucleated RBCs # 0.0 /100WBC Sodium 134 L (136-145) mmol/L Potassium 3.5 (3.5-5.1) mmol/L Chloride 100 (98-107) mmol/L Carbon Dioxide 21 L (22-29) mmol/L Anion Gap 16.5 (5-19) BUN 7 (6-20) mg/dL Creatinine 0.5 (0.5-0.9) mg/dL GFR Calculation 146.9 H (90-130) mL/min Glucose 80 (65-115) mg/dL Calculated Osmolal ity 275 L (285-295) mOsm/k g Calcium 9.5 (8.5-10.5) mg/dL Total Bilirubin 0.4 (0.15-1.2) mg/dL AST 19 (0-32) U/L ALT 19 (0-33) U/L Alkaline Phosphata se 63 (35-105) IU/L Total Protein 7.6 (6.6-8.7) g/dL Albumin 4.7 (3.5-5.2) g/dL Globulin 2.9 (1.3-4.6) g/dL Urine Color Yellow (Yellow) Urine Appearance Sl hazy (CLEAR) Urine pH 5 (5-7) Ur Specific Gravit y 1.030 (1.005-1.030) Urine Protein Neg (Negative) Urine Glucose (UA) Norm (Normal) Urine Ketones 3+ H (Negative) Urine Blood 2+ H (Negative) Urine Nitrate Negative (Negative) Urine Bilirubin Neg (Negative) Urine Urobilinogen Norm (Negative) mg/dL Ur Leukocyte Selena ase Negative (Negative) Urine RBC 5-10 H (0-2) /hpf Urine WBC 0-4 H (0-5) /hpf Ur Squamous Epith Cells 0-4 H (0-5) /hpf Amorphous Sediment Not Reportable Urine Bacteria Trace (NONE) /hpf Urine Mucus 4+ /hpf Discharge Plan Discharge Patient Disposition: Home Clinical Impression: Vomiting during Condition: Stable Prescriptions: New Reglan 10 mg tablet 10 mg PO Q6H PRN (Reason: nausea and vomiting) Qty: 30 RF: 0 No Action ondansetron HCl [Zofran] 4 mg Tablet 4 - 8 mg PO Q6H PRN (Reason: Nausea) RF: 0 iron 325 mg (65 mg iron) Tablet 325 mg PO DAILY@19 RF: 0 Vitamin B-6 100 mg Tablet 100 mg PO DAILY@19 RF: 0 Unisom (doxylamine) 25 mg Tablet 25 mg PO DAILY@19 RF: 0 folic acid 800 mcg Tablet 0.8 mg PO DAILY@19 RF: 0 Gummies 400 mcg-35 mg- 25 mg-5 mg Tablet,Chewable 2 tab PO DAILY@19 RF: 0 Discharge Orders: Discharge ED (Routine); Ordered 07/09/20 Ordered By: Mendoza Levin Referrals: Mendoza Paredes MD [Primary Care Provider] - Discharge Diet: Advance as tolerated Discharge Activity: Resume usual activity Patient Instructions: Morning Sickness (ED), Acute Nausea and Vomiting (ED) Activity Restrictions/Additional Instructions: Follow-up with medical provider as directed. Go to your scheduled OB doctor's appointment next for reevaluation. Take medications as prescribed. Try taking the newly prescribed Reglan to help with nausea. Make sure to drink plenty of fluids and stay hydrated and eat throughout the day. Return to the ER or your medical provider if condition worsens. Please read and understand discharge instructions. If any questions, please ask. Sign Out Sign Out Data: Patient Sign Out occurred on 07/09/20 at 17:12. Patient's care was discussed, and care was transferred from Cleveland White to HUY Kaplan. Sign Out Comment: awaiting urine results, cali Last updated by Cleveland White FNP at 07/09/20 17:06 Coding Level of Care Code ED Medical And Scientific Illustrator for Chg Fwd Exam Comprehensive
[2020-07-09 15:57] VITALS: BP 119/67; PULSE 88; RESP 18; O2SAT 97
[2020-07-09 16:00] VITALS: BP 119/67; PULSE 82; RESP 18; O2SAT 98
[2020-07-09] MEDS: metoclopramide 5 mg/mL SDV 2 mL 10 MG IVP (16:08)
[2020-07-09] MEDS: diphenhydrAMINE 50 mg/mL SDV 1mL 12.5 MG IVP (16:09)
[2020-07-09] MEDS: sodium chloride 0.9% 1,000 ML 999 ML IV ×2 (16:09→16:36)
[2020-07-09 16:28] LABS: Basophils % 0.3 %; Eosinophils # 0.1 10^3/uL (0.0-0.8); Eosinophils % 1.1 %; Hemoglobin 13.3 g/dL (11.5-15.3); Lymphocytes # 2.7 10^3/uL (0.8-4.8); Lymphocytes % 29.8 %; Mean Corpuscular HGB Conc 33.3 g/dL (30.0-36.0); Mean Corpuscular Hemoglobin 26.8 pg (28.0-34.0); Mean Corpuscular Volume 80.5 fL (81-99); Mean Platelet Volume 10.4 fL (7.4-10.4); Monocytes # 0.4 10^3/uL (0.2-0.9); Monocytes % 4.6 %; Neutrophils # 5.79 10^3/uL (1.8-7.7); Nucleated Red Blood Cells % 0 %; Platelet Count 267 10^3/cmm (130-400); Red Blood Count 4.97 10^6/uL (4.1-5.3); Red Cell Distribution Width 13.5 % (12.1-15.1); White Blood Count 9.1 10^3/uL (4.0-10.0)
[2020-07-09 16:42] VITALS: BP 121/71; PULSE 92; RESP 18; O2SAT 99
[2020-07-09 16:42] LABS: Alanine Aminotransferase 19 U/L (0-33); Albumin Level 4.7 g/dL (3.5-5.2); Alkaline Phosphatase 63 IU/L (35-105); Anion Gap 16.5 (5-19); Aspartate Amino Transferase 19 U/L (0-32); Blood Urea Nitrogen 7 mg/dL (6-20); Calcium 9.5 mg/dL (8.5-10.5); Carbon Dioxide 21 mmol/L (22-29); Chloride 100 mmol/L (98-107); Globulin 2.9 g/dL (1.3-4.6); Glomerular Filtration Rate 146.9 mL/min (90-130); Glucose 80 mg/dL (65-115); Osmolality Calculated 275 mOsm/kg (285-295); Potassium 3.5 mmol/L (3.5-5.1); Sodium 134 mmol/L (136-145); Total Bilirubin 0.4 mg/dL (0.15-1.2); Total Protein 7.6 g/dL (6.6-8.7)
[2020-07-09 17:04] LABS: Add Urine Microscopic? YES; Bilirubin Urine Neg (Negative); Blood Urine 2+ (Negative); Glucose Urine UA Norm (Normal); Ketones Urine 3+ (Negative); Leukocyte Esterase Urine Negative (Negative); Nitrate Urine Negative (Negative); Protein Urine Neg (Negative); Urine Appearance SL Hazy (CLEAR); Urine Color Yellow (Yellow); Urobilinogen Urine Norm (Negative); pH Urine 5 (5-7)
[2020-07-09 17:30] LABS: Add Urine Culture? No; Bacteria Urine TRACE /hpf; Mucus Urine 4+ /hpf; Squamous Epithelial Cell Urine 0-4 /hpf (0-5); WBC Urine 0-4 /hpf (0-5)
[2020-07-09] MEDS: promethazine 25 mg/mL SDV 1 mL IM (18:49)
[2020-07-09 19:05] VITALS: BP 103/61; PULSE 76; RESP 18; TEMP 37; O2SAT 96
== END 2020-07-09 19:07 | disposition home or self-care (01) ==
PROVIDERS: Nurse Practitioner Family; Emergency Provider Physician Assistant; PCP Family Medicine
DX: O21.9 Vomiting of pregnancy, unspecified (principal); O99.331 Smoking (tobacco) complicating pregnancy, first trimester; F17.210 Nicotine dependence, cigarettes, uncomplicated; Z3A.08 8 weeks gestation of pregnancy
CPT/HCPCS: 12345; 80053; 81001; 85025; 96361; 96372; 96374; 96375; 99283; J1200; J2550; J2765; J7030

== ENCOUNTER 2020-07-23 14:49 | Outpatient (CLI) | payer BC, MEDICAID, SELFPAY ==
--- NOTE | 2020-07-23 14:53 | US_ITS ---
WS: [id number] TRANSABDOMINAL FIRST TRIMESTER ULTRASOUND REASON FOR EXAM: DATING/NORMAL -SUPERVISION : 4 PARA: 1 COMPARISON: None available. FINDINGS: Cervical length is 3.3 cm; closed. Single live intrauterine . EGA by crown-rump length is 10 weeks 3 days EGA by gestational sac measurement 10 weeks 2 days. cardiac tones 167 BPM. Estimated date of delivery 02/16/2021. Small subchorionic hemorrhage. (26 mm x 7 mm) Right ovary measures 1.7 cm x 2.7 cm x 2.4 cm. Normal appearance with no mass identified. Left ovary measures 1.1 cm x 1.7 cm x 0.8 cm. Normal appearance with no mass identified. No free fluid in the cul-de-sac. US/US OB <= 14 weeks fetus [id number] IMPRESSION: Single viable intrauterine gestation as above.
== END 2020-07-23 14:50 | disposition home or self-care (01) ==
LOC: RAD 14:52
PROVIDERS: PCP Family Medicine; Visit Provider Family Medicine
DX: Z34.81 Encounter for supervision of other normal pregnancy, first trimester; Z3A.10 10 weeks gestation of pregnancy
CPT/HCPCS: 76801

== ENCOUNTER 2020-10-01 08:58 | Outpatient (CLI) | payer BC, MEDICAID, SELFPAY ==
--- NOTE | 2020-10-01 09:01 | US_ITS ---
WS: [id number] ULTRASOUND OB COMPLETE TECHNIQUE: Complete ultrasound. CLINICAL INFORMATION: ANATOMY/SUPERVISION NORMAL COMPARISON: None. FINDINGS: Cervix measures 4.1 cm Single interuterine gestation is identified with variable presentation. Placenta is anterior. Placenta grade 1. Normal amniotic fluid volume. Single vertical pocket 3.5 cm cardiac activity: 150 BPM. AGA: 20w3d FELICITAS by ultrasound: 02/15/2021 Estimated weight: 359 g BDP: 4.7 cm = 20w1d HC: 18.0 cm = 20w3d AC: 15.5 cm = 20w5d FEMUR LENGTH: 3.3 cm = 20w2d Anatomic survey: profile and nose/lips not well visualized due to positioning. Anatomic survey is otherwise normal. Normal stomach. Kidneys and bladder are normal. Normal 3 vessel cord. Normal 3 vessel cord insertion. Normal 4 chamber heart. Normal spine. Intracranial contents are normal. Normal posterior fossa and cisterna magna. US/US OB >= 14 weeks fetus [id number] IMPRESSION: 1. Single intrauterine with visualized cardiac activity. AGA 20w3d w ith FELICITAS 02/15/2021. 2. Placenta is anterior. No evidence of abruption or previa. 3. profile and nose/lip not well evaluated due to position. Anatomic bertha vey otherwise normal. 4. Normal amniotic fluid volume.
== END 2020-10-01 08:59 | disposition home or self-care (01) ==
PROVIDERS: PCP Family Medicine; Visit Provider Family Medicine
DX: Z36.89 Encounter for other specified antenatal screening (principal); Z3A.20 20 weeks gestation of pregnancy
CPT/HCPCS: 76805

== ENCOUNTER 2020-10-26 18:18 | Outpatient (CLI) | payer BC, MEDICAID, SELFPAY ==
[2020-10-26] VITALS (7 sets, daily range): BP systolic 105–119; BP diastolic 51–72; PULSE 90–96; RESP 16–18; TEMP 36.1–36.7; BMI 34.0
[2020-10-26 18:56] LABS: Nitrazine Paper, PH Negative
[2020-10-26 19:18] LABS: Add Urine Culture? Yes; Bacteria Urine 3+ /hpf; Bilirubin Urine Neg (Negative); Blood Urine 2+ (Negative); Glucose Urine UA Norm (Normal); Ketones Urine Negative (Negative); Leukocyte Esterase Urine Negative (Negative); Nitrate Urine Negative (Negative); Protein Urine Neg (Negative); RBC Urine 0-4 /hpf (0-2); Specific Gravity, Urine 1.015 (1.005-1.030); Squamous Epithelial Cell Urine 0-4 /hpf (0-5); Urine Appearance Hazy (CLEAR); Urine Color Yellow (Yellow); Urobilinogen Urine Norm (Negative); pH Urine 6.5 (5-7)
[2020-10-26 19:19] LABS: Amorphous Sediment Urine 1+ /hpf
== END 2020-10-26 20:16 | disposition home or self-care (01) ==
LOC: OPOB 18:21 → OBGYN 18:22
PROVIDERS: PCP Family Medicine; Visit Provider Family Medicine
DX: O26.899 Other specified pregnancy related conditions, unspecified trimester (principal); Z3A.00 Weeks of gestation of pregnancy not specified; R10.9 Unspecified abdominal pain
CPT/HCPCS: 59025; 81001; 83986; 87086; 99211

== ENCOUNTER 2020-11-02 09:55 | Outpatient (CLI) | payer BC, MEDICAID, SELFPAY ==
--- NOTE | 2020-11-02 10:00 | US_ITS ---
WS: [id number] ULTRASOUND OB FOCUSED HISTORY: FOLLOW UP US FOR NOSE/LIPS COMPARISON: 10/01/2020 Single intrauterine gestation in breech position. Normal amount of amniotic fluid surrounds the fetus . Placenta is anterior. heart rate at 136 BPM. Additional imaging the profile, nose and lips demonstrates no abnormality[place] [id number] IMPRESSION: Follow-up imaging of the profile, nose and lips demonstrates no abnormali ty.
== END 2020-11-02 09:56 | disposition home or self-care (01) ==
LOC: US 09:56
PROVIDERS: PCP Family Medicine; Visit Provider Family Medicine
DX: Z34.90 Encounter for supervision of normal pregnancy, unspecified, unspecified trimester (principal)
CPT/HCPCS: 76816

== ENCOUNTER 2020-11-25 13:34 | Outpatient (CLI) | payer BC, MEDICAID, SELFPAY ==
[2020-11-25 13:54] VITALS: BP 109/62; PULSE 95; TEMP 36.3
[2020-11-25 14:00] VITALS: RESP 16; TEMP 36.8
[2020-11-25 14:09] VITALS: BP 106/64; PULSE 99
[2020-11-25 14:24] VITALS: BP 108/64; PULSE 91
[2020-11-25 15:29] VITALS: BMI 32.5
== END 2020-11-25 14:45 | disposition home or self-care (01) ==
LOC: OPOB 13:35 → OBGYN 13:36
PROVIDERS: PCP Family Medicine; Visit Provider Family Medicine
DX: O16.9 Unspecified maternal hypertension, unspecified trimester (principal); Z3A.00 Weeks of gestation of pregnancy not specified
CPT/HCPCS: 99211

== ENCOUNTER → 2020-12-09 12:18 | Day surgery (SDC) | payer BC, MEDICAID, SELFPAY ==
[2020-12-09 14:30] VITALS: BP 106/57; PULSE 115; RESP 18; TEMP 36.8; O2SAT 97
[2020-12-09 14:40] VITALS: BP 106/57; PULSE 115; RESP 18; TEMP 36.8; O2SAT 97
== END ==
PROVIDERS: PCP Family Medicine; Visit Provider Family Medicine
DX: Z34.80 Encounter for supervision of other normal pregnancy, unspecified trimester (principal); Z3A.00 Weeks of gestation of pregnancy not specified
CPT/HCPCS: 36415; 86850; 86900; 90384; 96372

== ENCOUNTER 2020-12-27 16:38 | Emergency (ER) | payer BC, MEDICAID, SELFPAY ==
[2020-12-27 16:45] VITALS: BP 112/65; PULSE 95; RESP 18; TEMP 36.9; O2SAT 99; BMI 32.9
--- NOTE | 2020-12-27 17:44 | ED_ITS ---
HPI - Nausea/Vomiting/Diarrhea General: Chief complaint: Abdominal Pain Stated complaint: 32 WKS PREG,BLACK STOOLS,SENT BY MARVIN Time Seen by Provider: 12/27/20 17:35 History of Present Illness: HPI Narrative: Patient is a 30-year-old female that is 32 weeks gestation who comes to the ED with diarrhea and weakness. Patient just started taking iron and magnesium supplements for the past 2 weeks. She has a past medical history of iron deficiency anemia. She started developing dark black stool with diarrhea today. She states that diarrhea is common for her and she was not concerned about that but was more concerned about the black looking stool. She says she has had diarrhea multiple times today. She is reporting some leg cramps as and weakness of both legs bilaterally. Patient denies any vaginal bleeding, UTI symptoms, acute abdominal pain, fever, nausea/vomiting. Patient says the baby is having their normal movements. She contacted Dr. Paredes's office today and told them about the black stool and they told her to come to the ED for further evaluation. Associated nausea: No Associated symtoms: Denies change in vision, chest pain, dysuria, fatigue, headache(s), nausea or palpitations Review of Systems Const: Denies: fever(s), chills or fatigue Eyes: Denies: change in vision or eye discomfort ENMT: Denies: throat pain, odynophagia, nasal discharge or nasal congestion Card: Denies: chest pain, palpitations, edema, swelling of feet/ankles, dyspnea on exertion or orthopnea Resp: Denies: dyspnea, productive cough or non-productive cough GI: Reports: diarrhea and change in stool character (Black stool); Denies: abdominal pain, nausea, vomiting, constipation or hematochezia : Denies: flank pain, dysuria or hematuria Musc: Reports: muscle cramps (Bilateral leg cramps) and muscle weakness (Bilateral leg weakness); Denies: neck pain, back pain or extremity swelling Skin/Breast: Denies: rash or new lesions Neuro: Denies: headache(s), numbness in extremities or weakness in extremities PFS ED PFSH: Medical History Ovarian cyst Surgical History History of cholecystectomy Status post laparoscopic appendectomy Social History Smoking and tobacco status: current every day smoker Female Reproductive History: Date of last menstrual period: 05/17/20 Physical Exam Narrative: EXAM NARRATIVE: Patient is a pleasant and nontoxic-appearing 30-year-old female that is obviously in her third trimester of . She appears in no acute distress or pain. Const: COMMON NORMALS: no acute distress, patient oriented x3, healthy appearing and alert GENERAL APPEARANCE: cooperative and comfortable HENMT: COMMON NORMALS: normocephalic HEAD & SCALP: normocephalic MOUTH: Normal oral and palatal mucosa present THROAT: posterior oropharynx normal and uvula midline Neck/C-Spine: COMMON NORMALS: supple GENERAL: Yes normal visual inspection Resp: COMMON NORMALS: normal respiratory effort, No retractions, No use of accessory muscles and clear to auscultation bilaterally AUSCULTATION: clear to auscultation bilaterally Cardio: COMMON NORMALS: regular rate, regular rhythm, S1 normal heart sound present, S2 normal heart sound present, No gallops present (Cardio), No clicks present (Cardio), No murmurs present (Cardio) and Peripheral pulses 2+ throughout RATE: regular rate RHYTHM: regular rhythm HEART SOUNDS: S1 normal heart sound present and S2 normal heart sound present PERIPHERAL PULSES: Peripheral pulses 2+ throughout GI: COMMON NORMALS: Normal to inspection, nondistended, normoactive bowel sounds present, Soft to palpation, non-tender and no masses INSPECTION: Yes gravid abdomen PALPATION: Yes Soft to palpation : COMMON NORMALS: Yes no CVA tenderness BLADDER/KIDNEY EXAM: Yes no CVA tenderness Back/Pelvis: COMMON NORMALS: no CVA tenderness Extremity: COMMON NORMALS: normal to inspection and no pedal edema Neuro: COMMON NORMALS: patient oriented x3 and moves all extremities SENSORIUM/ORIENTATION: Yes alert Skin: GENERAL SKIN EXAM: dry skin Course ED course: I had Dr. Vela perform a bedside ultrasound just to check baby. Dr. Vela said ultrasound of baby looked great. Baby was moving and active and had normal heart rate during exam. Vital Signs: Vital signs: Vital Signs Temperature 98.4 F 12/27/20 16:45 Pulse Rate 90 12/27/20 20:00 Respiratory Rate 17 12/27/20 20:00 Blood Pressure 123/74 12/27/20 18:16 Pulse Oximetry 98 12/27/20 20:00 MDM - Nausea/Vomiting/Diarrhea MDM Narrative: Medical decision making narrative: Patient is a 32-week gestation 30-year-old female comes to the ED with black stool. Patient has a history of anemia and was recently just put on magnesium and iron supplements 2 weeks ago. She reports normal movements and denies any vaginal bleeding or abdominal pain. Patient is in no acute distress or pain and appears nontoxic.?Rest of exam was benign. Patient had a hemoglobin level of 9.6 and rest of labs were unremarkable. Ultrasound performed at bedside by ED physician Dr. Vela and he reported the baby looked great with normal heart rate and movement seen. Patient was given IV fluids while here in the ED. Patient was discharged home and diagnosed with anemia. She was told to continue taking her previously prescribed meds and to follow-up with Dr. Paredes in the next 2 to 3 days to recheck hemoglobin labs. Return to ED precautions given. Patient understood and agreed with plan. Lab Data: Attestation: I reviewed the patient's lab results. Labs: Lab Results 12/27/20 12/27/20 12/27/20 Range/Units 18:06 18:30 18:30 WBC 8.7 (4.0-10.0) 10^3/ uL RBC 3.66 L (4.1-5.3) 10^6/u L Hgb 9.6 L (11.5-15.3) g/dL Hct 30.0 L (37.0-47.0) % MCV 82.0 (81-99) fL MCH 26.2 L (28.0-34.0) pg MCHC 32.0 (30.0-36.0) g/dL RDW 13.6 (12.1-15.1) % Plt Count 220 (130-400) 10^3/c mm MPV 10.2 (7.4-10.4) fL Neut % (Auto) 57.8 % Lymph % (Auto) 32.4 % [place] % (Auto) 6.9 % Eos % (Auto) 2.0 % Baso % (Auto) 0.2 % Neut # (Auto) 5.00 (1.8-7.7) 10^3/u L Lymph # (Auto) 2.8 (0.8-4.8) 10^3/u L [place] # (Auto) 0.6 (0.2-0.9) 10^3/u L Eos # (Auto) 0.2 (0.0-0.8) 10^3/u L Baso # (Auto) 0.0 (0.0-0.1) 10^3/u L Nucleated RBC % (a uto) 0 % Nucleated RBCs # 0.0 /100WBC Sodium 134 L (136-145) mmol/L Potassium 3.9 (3.5-5.1) mmol/L Chloride 103 (98-107) mmol/L Carbon Dioxide 20 L (22-29) mmol/L Anion Gap 14.9 (5-19) BUN 5 L (6-20) mg/dL Creatinine 0.3 L (0.5-0.9) mg/dL GFR Calculation 263.0 H (90-130) mL/min Glucose 74 (65-115) mg/dL Calculated Osmolal ity 274 L (285-295) mOsm/k g Calcium 8.5 (8.5-10.5) mg/dL Total Bilirubin 0.2 (0.15-1.2) mg/dL AST 12 (0-32) U/L ALT 6 (0-33) U/L Alkaline Phosphata se 140 H (35-105) IU/L Total Protein 6.5 L (6.6-8.7) g/dL Albumin 3.4 L (3.5-5.2) g/dL Globulin 3.1 (1.3-4.6) g/dL Lipase 37 (13-60) U/L Urine Color Yellow (Yellow) Urine Appearance Cloudy (CLEAR) Urine pH 7 (5-7) Ur Specific Gravit y 1.010 (1.005-1.030) Urine Protein Neg (Negative) Urine Glucose (UA) Norm (Normal) Urine Ketones Negative (Negative) Urine Blood Neg (Negative) Urine Nitrate Negative (Negative) Urine Bilirubin Neg (Negative) Urine Urobilinogen Norm (Negative) mg/dL Ur Leukocyte Selena ase 2+ H (Negative) Urine RBC 0-4 H (0-2) /hpf Urine WBC 40-55 H (0-5) /hpf Ur Squamous Epith Cells 10-15 H (0-5) /hpf Amorphous Sediment Not Reportable Urine Bacteria 2+ H (NONE) /hpf Discharge Plan Discharge Patient Disposition: Home Clinical Impression: Third trimester Anemia Qualifiers: Anemia type: iron deficiency Iron deficiency anemia type: unspecified iron deficiency Qualified Code(s): D50.9 - Iron deficiency anemia, unspecified Condition: Stable Prescriptions: No Action Unisom (doxylamine) 25 mg Tablet 25 mg PO BEDTIME RF: 0 Gummies 400 mcg-35 mg- 25 mg-5 mg Tablet,Chewable 2 tab PO BEDTIME RF: 0 Aspir-81 81 mg Tablet,Delayed Release (Dr/Ec) 81 mg PO BEDTIME RF: 0 ferrous gluconate 325 mg (37 mg iron) Tablet 325 mg PO BEDTIME RF: 0 magnesium 200 mg Tablet 200 mg PO BEDTIME RF: 0 sertraline 25 mg Tablet 25 mg PO BEDTIME RF: 0 Discharge Orders: Discharge ED (Routine); Ordered 12/27/20 Ordered By: Mendoza Levin Referrals: Mendoza Paredes MD [Primary Care Provider] - Discharge Diet: Regular Discharge Activity: Increase activity as tolerated Patient Instructions: Iron Deficiency Anemia (ED), Anemia (ED) Activity Restrictions/Additional Instructions: Follow-up with Dr. Paredes in 2 to 3 days to have hemoglobin levels rechecked. Continue taking all medications as prescribed. Return to the ER or your medical provider if condition worsens. Please read and understand discharge instructions. Thank you for choosing [facility] for your healthcare needs today. Please realize this is an emergency room and that we are providing you with a medical screening exam and this may not be complete and all inclusive of all the testing and or work up that you may need to determine your ailment or severity of your illness. It is very important that you follow up as instructed or that you return to the Emergency Department should you have concerns or if your condition changes or worsens in any way. Coding Level of Care Code ED Edi Architect for Suzan Fletcher Exam Comprehensive
[2020-12-27 18:16] VITALS: BP 123/74; PULSE 91; RESP 16; O2SAT 98
[2020-12-27 18:32] LABS: Bilirubin Urine Neg (Negative); Blood Urine Neg (Negative); Glucose Urine UA Norm (Normal); Ketones Urine Negative (Negative); Leukocyte Esterase Urine 2+ (Negative); Nitrate Urine Negative (Negative); Protein Urine Neg (Negative); Urine Appearance Cloudy (CLEAR); Urine Color Yellow (Yellow); Urobilinogen Urine Norm (Negative); pH Urine 7 (5-7)
[2020-12-27 18:33] LABS: WBC Urine 40-55 /hpf (0-5)
[2020-12-27] MEDS: sodium chloride 0.9% 1,000 ML 999 ML IV (18:33)
[2020-12-27 18:34] LABS: Add Urine Culture? No; Bacteria Urine 2+ /hpf; RBC Urine 0-4 /hpf (0-2)
[2020-12-27 18:37] LABS: Basophils % 0.2 %; Eosinophils # 0.2 10^3/uL (0.0-0.8); Hemoglobin 9.6 g/dL (11.5-15.3); Lymphocytes # 2.8 10^3/uL (0.8-4.8); Lymphocytes % 32.4 %; Mean Corpuscular Hemoglobin 26.2 pg (28.0-34.0); Mean Platelet Volume 10.2 fL (7.4-10.4); Monocytes # 0.6 10^3/uL (0.2-0.9); Monocytes % 6.9 %; Neutrophils % 57.8 %; Nucleated Red Blood Cells % 0 %; Platelet Count 220 10^3/cmm (130-400); Red Blood Count 3.66 10^6/uL (4.1-5.3); Red Cell Distribution Width 13.6 % (12.1-15.1); White Blood Count 8.7 10^3/uL (4.0-10.0)
[2020-12-27 18:53] LABS: Alanine Aminotransferase 6 U/L (0-33); Albumin Level 3.4 g/dL (3.5-5.2); Alkaline Phosphatase 140 IU/L (35-105); Anion Gap 14.9 (5-19); Aspartate Amino Transferase 12 U/L (0-32); Blood Urea Nitrogen 5 mg/dL (6-20); Calcium 8.5 mg/dL (8.5-10.5); Carbon Dioxide 20 mmol/L (22-29); Chloride 103 mmol/L (98-107); Globulin 3.1 g/dL (1.3-4.6); Glucose 74 mg/dL (65-115); Lipase 37 U/L (13-60); Osmolality Calculated 274 mOsm/kg (285-295); Potassium 3.9 mmol/L (3.5-5.1); Sodium 134 mmol/L (136-145); Total Bilirubin 0.2 mg/dL (0.15-1.2); Total Protein 6.5 g/dL (6.6-8.7)
[2020-12-27 20:00] VITALS: PULSE 90; RESP 17; O2SAT 98
== END 2020-12-27 20:02 | disposition home or self-care (01) ==
PROVIDERS: Emergency Provider Physician Assistant; PCP Family Medicine
DX: O99.013 Anemia complicating pregnancy, third trimester (principal); Z3A.32 32 weeks gestation of pregnancy
CPT/HCPCS: 80053; 81001; 83690; 85025; 96360; 99283; J7030

== ENCOUNTER 2021-02-12 06:41 | Inpatient (IN) | payer BC, MEDICAID, SELFPAY ==
[2021-02-12] VITALS (78 sets, daily range): BP systolic 65–134; BP diastolic 35–79; PULSE 74–106; RESP 16; TEMP 36.1–36.2; O2SAT 97–100; BMI 32.5
[2021-02-12 07:02] LABS: Basophils % 0.2 %; Eosinophils # 0.2 10^3/uL (0.0-0.8); Eosinophils % 1.5 %; Hematocrit 35.7 % (37.0-47.0); Hemoglobin 11.6 g/dL (11.5-15.3); Lymphocytes # 3.1 10^3/uL (0.8-4.8); Lymphocytes % 29.4 %; Mean Corpuscular HGB Conc 32.5 g/dL (30.0-36.0); Mean Corpuscular Hemoglobin 27.2 pg (28.0-34.0); Mean Corpuscular Volume 83.8 fL (81-99); Mean Platelet Volume 10.6 fL (7.4-10.4); Monocytes # 0.7 10^3/uL (0.2-0.9); Monocytes % 6.2 %; Neutrophils # 6.46 10^3/uL (1.8-7.7); Neutrophils % 61.8 %; Nucleated Red Blood Cells % 0 %; Platelet Count 172 10^3/cmm (130-400); Red Blood Count 4.26 10^6/uL (4.1-5.3); Red Cell Distribution Width 16.2 % (12.1-15.1); White Blood Count 10.5 10^3/uL (4.0-10.0)
[2021-02-12] MEDS: lactated ringers 1,000 ML 999 ML IV ×2 (07:25→08:42)
--- NOTE | 2021-02-12 09:08 | P.ANESUD_ITS ---
Pre-Anesthetic Update Pre-Anesthetic Assessment: Date of Surgery/Procedure: 02/12/21 Preop Jackie gnosis: IUP Any changes to Pre-Anesthetic Assessment?: No Last Intake: 0600 meal Labs Last 48hrs: Laboratory Results - last 48 hr 02/12/21 06:45 WBC 10.5 H RBC 4.26 Hgb 11.6 Hct 35.7 L MCV 83.8 MCH 27.2 L MCHC 32.5 RDW 16.2 H Plt Count 172 MPV 10.6 H Neut % (Auto) 61.8 Lymph % (Auto) 29.4 [place] % (Auto) 6.2 Eos % (Auto) 1.5 Baso % (Auto) 0.2 Neut # (Auto) 6.46 Lymph # (Auto) 3.1 [place] # (Auto) 0.7 Eos # (Auto) 0.2 Baso # (Auto) 0.0 Nucleated RBC % (a uto) 0 Nucleated RBCs # 0.0 Vitals: Temperature 97.0 F L 02/12/21 07:26 Pulse Rate 90 02/12/21 09:03 Pulse Rhythm 02/12/21 07:54 Pulse Strength 3+ Normal 02/12/21 07:54 Respiratory Rate 16 02/12/21 06:14 Respiratory Effort Non-Labored 02/12/21 07:54 Respiratory Depth Normal 02/12/21 07:54 Respiratory Patter n 02/12/21 07:54 Blood Pressure 103/66 02/12/21 09:03 Pulse Oximetry 98 02/12/21 09:03 Oxygen Delivery Me thod 02/12/21 07:54 Exam: Pre-Anes Outpt Exam: alert, oriented x 3 and clear to auscultation bilaterally Cardiac Studies: No Data to Display
--- NOTE | 2021-02-12 09:09 | ANES.PROC ---
Anesthesia Procedures Procedure/Date: 02/12/21 labor epidural Epidural: Time Out Performed: Yes Consents Signed: Procedure Consent Consent: requested by attending/covering physician, from patient, risks and benefits reviewed and patient agrees to proceed Lumbar Level: L3-L4 Epidural position: sitting Epidural procedure: sterile prep of area, 1% lidocaine to numb the area, negative for paresthesia passed, test dose given, 1.5% xylocaine 1:200k epi, placed PCEA, no systemic response, sterile dressing applied, L.U.D. no apparent complications and 0.2% Ropiavacaine @ mls/hr (11) Additional Comments: KRYSTYNA at 8 cm catheter threaded to 13 cm no CSF, no Heme. pump started at 11 ml/hr no additional bolus given.
[2021-02-12] MEDS: ePHEDrine 50 mg/mL Inj 10 MG IVP (09:32)
[2021-02-12] MEDS: ondansetron 2 mg/ML SDV 2 mL 4 MG IVP ×2 (09:34→15:55)
--- NOTE | 2021-02-12 09:54 | P.HP_ITS ---
Providers/Chief Complaint Admitting Physician: Mendoza Paredes MD Primary Care Provider: Mendoza Paredes MD Chief Complaint: IUP History of Present Illness Sharri Alvarado is a 30 year old at 39.1 weeks gestation by LMP consistent with 10-week ultrasound. Her is complicated by history of preeclampsia, Rh-, anxiety on sertraline, elevated 1 hour glucose tolerance test with normal 3-hour glucose tolerance test. The patient states that she was having increased cramping on 02/11/2021 and at approximately 3 AM she noted some fluid leakage and initially thought it was urine. At then continued to come out, so she presented to labor and delivery for further evaluation. In labor and delivery the patient was noted to be nitrazine positive with gross rupture of membranes. She was 4 cm dilated upon presentation. The patient denies any fevers, chest pains, cough, shortness of breath, nausea, vomiting, diarrhea, constipation, dysuria. Medications/Allergies Home Medications Medication Instructions Recorded Confirmed Last Taken Type sertraline 25 mg PO BEDTIME 11/25/20 02/12/21 02/11/21 19:30 History Allergies Allergy/AdvReac Type Severity Reaction Status Date / Time No Known Allergies Allergy Verified 02/12/21 07:31 PFSH Acute PFSH: Medical History Ovarian cyst Surgical History History of cholecystectomy Status post laparoscopic appendectomy Social History Smoking and tobacco status: current every day smoker Female Reproductive History: Date of last menstrual period: 05/17/20 : 4 Vitals/I&O/Wt Last Vital Signs Temp 97.0 F L 02/12/21 07:26 Pulse 85 02/12/21 09:50 Resp 16 02/12/21 06:14 BP 108/63 02/12/21 09:50 Pulse Ox 100 02/12/21 09:48 02/11/21 02/12/21 02/12/21 22:59 06:59 14:59 Intake Total 1965.8 / 1965.8 Balance 1965.8 / 1965.8 Weight last 48 hrs Weight 178 lb Physical Exam Narrative: EXAM NARRATIVE: General: Alert and oriented x3 Eyes: Pupils equal round and reactive to light and accommodation Mouth: Mucous membranes moist, pharynx non-erythematous Cardiac: Regular rate and rhythm without murmurs Lungs: Clear to auscultation bilaterally without wheezes, crackles or rhonchi Abdomen: Soft, non-tender, fundus consistent with gestational age Extremities: Trace edema in the bilateral lower extremities Urinary Catheter Management^: Marie: Cath Placed During This Visit: yes Reason for Continuing Indwelling Catheter: Other Urinary Catheter Date of Insertion: 02/12/21 Urinary Catheter Time of Insertion: 09:30 Data : 02/12/21 06:45 A&P Assessment and plan (1) Rh negative status during : Status: Acute (2) Intrauterine : Status: Acute Additional A&P Information The patient she is eusebia every 7 minutes. heart tones are in the mid 120s with moderate variability. The patient has received a laboring epidural. She had hypotension following this and received ephedrine. Her blood pressure is returning to normal range again. The patient is feeling well. If her contractions continue to be spaced out over the next hour and heart tones are reactive, will plan to not add IV Pitocin to augment labor. She is currently 5 cm dilated with 80% effacement. The patient is GBS negative. We will proceed with routine care otherwise. All questions were answered. The patient and her significant other are in agreement with the current plan of care. Attestations Medical Necessity Statement*: The patient will be here for greater than 2 midnights due to routine intrapartum and management of labor and delivery. Coding Level of Care Code Acute Crew Leader/Control Room Operator for Chg Fwd Diagnoses Rh negative status during O26.899; Z67.91 Intrauterine Z34.90
[2021-02-12] MEDS: oxytocin 30 UNIT/500 ML BAG IV (11:22)
[2021-02-12] MEDS: dextrose 5%-lactated ringers 1,000 ML 125 ML IV (11:54)
--- NOTE | 2021-02-12 16:49 | PM.DELIVERY ---
Delivery Note: Date of delivery: February 12, 2021 Pre-delivery diagnoses: 1. Intrauterine at 39.1 weeks gestation 2. Spontaneous rupture membranes 3. Rh- status 4. Anxiety on sertraline 5. Elevated 1 hour GTT with normal 3-hour GTT Post-delivery diagnoses: 1. Intrauterine status post spontaneous vaginal delivery at 39.1 weeks gestation 2. Spontaneous rupture membranes 3. Rh- status 4. Anxiety on sertraline 5. Elevated 1 hour GTT with normal 3-hour GTT Procedure: Spontaneous vaginal delivery Op report anesthesia: Epidural Estimated blood loss (mL): 100 Findings: Sharri Alvarado is a 30 year old G4 now P2 status post spontaneous vaginal delivery at 39.1 weeks gestation by LMP consistent with 10-week ultrasound. Her was complicated by history of preeclampsia, Rh-, anxiety on sertraline, elevated 1 hour glucose tolerance test with normal 3-hour glucose tolerance test. Pre-Delivery Course: The patient presented to labor and delivery triage with spontaneous rupture membranes at 3 AM on 02/12/2021. The patient was eusebia and made change on her own up until approximately 6 cm, however in her contractions spaced out. For this reason IV Pitocin was given to augment labor. The patient received a laboring epidural. The patient made gradual change and was complete by 1611 on 02/12/2021. Delivery: The patient began pushing at 1611 on 02/12/2021. There were some decelerations with pushing but the patient was pushing well and the delivered in the OA position at 1625 on 02/12/2021. A nuchal cord was present and could not be reduced, so the was delivered through the nuchal cord. The left shoulder was the anterior shoulder and it delivered with gentle downward pressure. The rest of the delivered without complication. The infant's mouth and nose were bulb suctioned by myself. The was placed on the mother's chest where the nurses were waiting to care for him. The infant initially had poor tone so the umbilical cord was clamped by myself and cut by the infant's father after approximately 30 seconds. Cord blood was obtained. The cord was drained of blood. Traction was placed on the umbilical cord and the uterus was massaged. The placenta delivered without complication at 1630 on 02/12/2021. The placenta was noted to be intact with a central umbilical cord insertion site. The uterus was noted to be firm and midline. The cervix was inspected and no lacerations were noted. Vaginal wall was inspected and no lacerations were noted. Currently both the mother and infant are doing well. A&P Assessment and plan (1) Rh negative status during : Status: Acute (2) Intrauterine : Status: Acute (3) Spontaneous vaginal delivery: Status: Acute Coding Level of Care Code Acute Birth Certificate Clerk for Chg Fwd Diagnoses Rh negative status during O26.899; Z67.91 Intrauterine Z34.90 Spontaneous vaginal delivery O80
[2021-02-12] MEDS: benzocaine-menthol 78 gm Canister 1 SPRAY TOPICAL (17:47)
[2021-02-12] MEDS: lanolin oint 7 gm 1 APPLIC TOPICAL (17:47)
[2021-02-12] MEDS: docusate sodium 100 mg Capsule PO (17:47)
[2021-02-12] MEDS: acetaminophen 325 mg Tablet 650 MG PO (17:47)
[2021-02-12] MEDS: ibuprofen 800 mg tablet PO (21:52)
[2021-02-13 00:35] VITALS: BP 107/66; PULSE 87
[2021-02-13] MEDS: acetaminophen 325 mg Tablet 650 MG PO (01:05)
[2021-02-13 02:00] VITALS: BP 104/69; PULSE 69; TEMP 36.6
[2021-02-13 05:30] LABS: Hemoglobin 10.3 g/dL (11.5-15.3); Mean Corpuscular HGB Conc 32.2 g/dL (30.0-36.0); Mean Corpuscular Hemoglobin 27.4 pg (28.0-34.0); Mean Corpuscular Volume 85.1 fL (81-99); Mean Platelet Volume 10.6 fL (7.4-10.4); Platelet Count 148 10^3/cmm (130-400); Red Blood Count 3.76 10^6/uL (4.1-5.3); Red Cell Distribution Width 16.4 % (12.1-15.1)
[2021-02-13 06:13] VITALS: BP 105/66; PULSE 67; TEMP 36.9
[2021-02-13] MEDS: docusate sodium 100 mg Capsule PO (09:13)
[2021-02-13] MEDS: ibuprofen 800 mg tablet PO ×2 (09:13→15:55)
[2021-02-13] MEDS: prenatal vitamin Capsule 1 CAP PO (09:13)
[2021-02-13 10:51] VITALS: BP 121/80; PULSE 82; RESP 16; TEMP 36.8; O2SAT 98
--- NOTE | 2021-02-13 14:32 | P.DS_ITS ---
Discharge Providers Date of Admission: 02/12/21 06:41 Date of Discharge: February 13, 2021 Attending Provider at Admission: Mendoza Paredes MD Attending Provider at Discharge: Mendoza Paredes MD Primary Care Provider: Mendoza Paredes MD Diagnoses at Discharge Discharge Diagnosis (1) Rh negative status during : Status: Acute (2) Intrauterine : Status: Acute (3) Spontaneous vaginal delivery: Status: Acute Reason for Visit Reason for Visit: IUP Hospital Course Hospital Course Pre-Delivery Course: The patient presented to labor and delivery triage with spontaneous rupture membranes at 3 AM on 02/12/2021. The patient was eusebia and made change on her own up until approximately 6 cm, however in her contractions spaced out. For this reason IV Pitocin was given to augment labor. The patient received a laboring epidural. The patient made gradual change and was complete by 1611 on 02/12/2021. Delivery: The patient began pushing at 1611 on 02/12/2021. There were some decelerations with pushing but the patient was pushing well and the delivered in the OA position at 1625 on 02/12/2021. A nuchal cord was present and could not be reduced, so the was delivered through the nuchal cord. The left shoulder was the anterior shoulder and it delivered with gentle downward pressure. The rest of the infant delivered without complication. The 's mouth and nose were bulb suctioned by myself. The infant was placed on the mother's chest where the nurses were waiting to care for him. The infant initially had poor tone so the umbilical cord was clamped by myself and cut by the infant's father after approximately 30 seconds. Cord blood was obtained. The cord was drained of blood. Traction was placed on the umbilical cord and the uterus was massaged. The placenta delivered without complication at 1630 on 02/12/2021. The placenta was noted to be intact with a central umbilical cord insertion site. The uterus was noted to be firm and midline. The cervix was inspected and no lacerations were noted. Vaginal wall was inspected and no lacerations were noted. Postdelivery course: The patient has done well without any complications. Her bleeding is decreasing well. Her pain is well controlled. She is ambulating, voiding, passing gas and tolerating food by mouth. She is showing no signs of complications. The patient is in agreement with discharge home at this time. All questions were answered. Routine instructions were discussed. Physical Exam Narrative: EXAM NARRATIVE: General: Alert and oriented x3 Cardiac: Regular rate and rhythm without murmurs Lungs: Clear to auscultation bilaterally without wheezes, crackles or rhonchi Abdomen: Soft, non-tender, fundus is 4 cm below the umbilicus. Extremities: Trace edema in the bilateral lower extremities Urinary Catheter Management^: Marie: Cath Placed During This Visit: yes, but has since been removed by the nurse Reason for Continuing Indwelling Catheter: Decision to DC Catheter Urinary Catheter Date of Insertion: 02/12/21 Urinary Catheter Time of Insertion: 09:30 Date Urinary Catheter Removed: 02/12/21 Time Urinary Catheter Discontinued: 16:08 Discharge Data Data Completed and Pending: Labs from last 24 hours 02/13/21 02/12/21 02/12/21 05:10 06:45 06:45 WBC 11.0 H RBC 3.76 L Hgb 10.3 L Hct 32.0 L MCV 85.1 MCH 27.4 L MCHC 32.2 RDW 16.4 H Plt Count 148 MPV 10.6 H Blood Type A Positive Cancelled Rho(D) Type Positive / 3+ Cancelled Antibody Screen Negative Cancelled Vitals: Last Vital Signs Temp 98.2 F 02/13/21 10:51 Pulse 82 02/13/21 10:51 Resp 16 02/13/21 10:51 BP 121/80 02/13/21 10:51 Pulse Ox 98 02/13/21 10:51 Discharge Plan Discharge Patient Disposition: Home Condition: Good Prescriptions: New ibuprofen 800 mg Tablet 800 mg PO TID Qty: 60 RF: 0 -U 106.5-1 mg Capsule 1 cap PO DAILY Qty: 60 RF: 0 ferrous sulfate 325 mg (65 mg iron) tablet 325 mg PO BID Qty: 30 RF: 0 Continued sertraline 25 mg Tablet 25 mg PO BEDTIME RF: 0 Discharge Orders: Discharge Order (Routine); Ordered 02/13/21 Ordered By: Mendoza Paredes Referrals: Mendoza Paredes MD [Primary Care Provider] - 6 Weeks (Please call Sunday morning to schedule your [address] Paredes.) Discharge Diet: Usual diet Patient Instructions: , Depression (GEN), Breast Care for the Breast Feeding Mother (DC), Pre-eclampsia and Eclampsia (DC), OB Discharge Report, OB Food/Drug Interaction Guide, Opioid Safety, OB [facility], OB Vaginal Deliveries Activity Restrictions/Additional Instructions: Nothing per vagina for 6 weeks. If you have any concerns prior to your next appointment, please schedule sooner appointment with Dr. Paredes. Discharge Attestations Time Spent in Discharge Care*: greater than 30 min Quality Metrics Clinical Quality Measures During this hospital stay, did patient experience: None Coding Level of Care Code Acute Chg FW DC note Diagnoses Rh negative status during O26.899; Z67.91 Intrauterine Z34.90 Spontaneous vaginal delivery O80
[2021-02-13 18:31] VITALS: BP 123/86; PULSE 80; RESP 16; TEMP 36.7; O2SAT 99
--- NOTE | 2021-02-14 08:33 | PC.RESP ---
SMOKING CESSATION INFORMATION SENT TO PATIENT.
== END 2021-02-13 18:05 | disposition home or self-care (01) | DRG 807 ==
LOC: OPOB 06:42 → OBGYN 06:42
PROVIDERS: Admitting Provider Family Medicine; PCP Family Medicine; Visit Provider Family Medicine
DX: O26.893 Other specified pregnancy related conditions, third trimester (principal); Z37.0 Single live birth; Z67.11 Type A blood, Rh negative; O99.344 Other mental disorders complicating childbirth; F41.9 Anxiety disorder, unspecified; O99.334 Smoking (tobacco) complicating childbirth; F17.200 Nicotine dependence, unspecified, uncomplicated; O76 Abnormality in fetal heart rate and rhythm complicating labor and delivery; O69.81X0 Labor and delivery complicated by cord around neck, without compression, not applicable or unspecified; O99.814 Abnormal glucose complicating childbirth; Z3A.39 39 weeks gestation of pregnancy
CPT/HCPCS: 36415; 51702; 59025; 59409; 83986; 85025; 85027; 86850; 86900; 99211; J2405; J2795

== ENCOUNTER 2021-09-09 05:16 | Emergency (ER) | payer BC, MEDICAID, SELFPAY ==
[2021-09-09 05:24] VITALS: BP 133/79; PULSE 112; RESP 22; TEMP 36.4; O2SAT 99; BMI 36.9
--- NOTE | 2021-09-09 05:25 | ED_ITS ---
Documented by User: Brendon Eason MD 09/09/21 05:27 HPI - Nausea/Vomiting/Diarrhea General: Chief complaint: Nausea/Vomiting/Diarrhea Stated complaint: n/v, aches, 9 weeks preg Time Seen by Provider: 09/09/21 05:21 Source: patient Mode of arrival: ambulatory Limitations: no limitations History of Present Illness: 31-year-old female who currently 9 weeks states she has been having nausea vomiting over the last 2 days with getting much worse today. States she is not able to tolerate any p.o. and has been having dry heaving throughout the night. States she is also having some abdominal cramping rates a 2-3 out of 10. Denies any vaginal bleeding or vaginal discharge. She states she has had these exact issues with all of her pregnancies with hyperemesis gravidarum. She denies any worsening improving factors. Associated nausea: Yes Associated symtoms: Reports nausea; Denies chest pain, dysuria or headache(s) Review of Systems Const: Denies: fever(s), chills, body aches or change in appetite Eyes: Denies: blurry vision or eye discomfort ENMT: Denies: throat pain or dental pain Card: Denies: chest pain Resp: Denies: dyspnea GI: Reports: nausea and vomiting : Denies: dysuria Musc: Denies: neck pain or back pain Skin/Breast: Denies: rash Neuro: Denies: headache(s) Psych: Denies: depression Matthew/Lymph: Denies: easy bruising All/Imm: Denies: urticaria PFSH ED PFSH: Medical History Ovarian cyst Surgical History History of cholecystectomy Status post laparoscopic appendectomy Social History Smoking and tobacco status: current every day smoker Female Reproductive History: Date of last menstrual period: 05/17/20 Physical Exam Const: COMMON NORMALS: no acute distress, patient oriented x3 and healthy appearing HENMT: COMMON NORMALS: normocephalic and atraumatic HEAD & SCALP: normocephalic and atraumatic Eye: COMMON NORMALS: Equal, round and reactive pupils present and EOMs intact bilaterally PUPIL: Yes Equal, round and reactive pupils present Neck/C-Spine: COMMON NORMALS: full ROM and supple Chest: COMMONS NORMALS: normal inspection of the chest and normal palpation of entire chest wall Resp: COMMON NORMALS: normal respiratory effort, No retractions, No use of accessory muscles and clear to auscultation bilaterally AUSCULTATION: clear to auscultation bilaterally Cardio: COMMON NORMALS: regular rate, regular rhythm and No murmurs present (Cardio) RATE: regular rate RHYTHM: regular rhythm GI: COMMON NORMALS: Normal to inspection, nondistended, normoactive bowel sounds present, Soft to palpation, non-tender and no masses PALPATION: Yes Soft to palpation Extremity: COMMON NORMALS: normal to inspection and full ROM Neuro: COMMON NORMALS: patient oriented x3, moves all extremities and no focal motor deficits Psych: COMMON NORMALS: mental status grossly normal, Normal thought process present and cooperative THOUGHT PROCESS: Normal thought process present Skin: COMMON NORMALS: no rashes or lesions noted and no wounds GENERAL SKIN EXAM: no rashes or lesions noted Course Vital Signs: Vital signs: Vital Signs Temperature 97.6 F 09/09/21 05:24 Pulse Rate 102 H 09/09/21 10:19 Respiratory Rate 16 09/09/21 10:19 Blood Pressure 117/72 09/09/21 10:19 Pulse Oximetry 99 09/09/21 10:19 MDM - Nausea/Vomiting/Diarrhea Lab Data : 09/09/21 06:05 09/09/21 06:05 Laboratory Results WBC 5.7 10^3/uL (4.0-10.0) 09/09/21 06:05 RBC 4.47 10^6/uL (4.1-5.3) 09/09/21 06:05 Hgb 12.5 g/dL (11.5-15.3) 09/09/21 06:05 Hct 38.4 % (37.0-47.0) 09/09/21 06:05 MCV 85.9 fl (81-99) 09/09/21 06:05 MCH 28.0 pg (28.0-34.0) 09/09/21 06:05 MCHC 32.6 g/dL (30.0-36.0) 09/09/21 06:05 RDW 13.2 % (12.1-15.1) 09/09/21 06:05 Plt Count 232 10^3/cmm (130-400) 09/09/21 06:05 MPV 9.5 fL (7.4-10.4) 09/09/21 06:05 Neut % (Auto) 89.3 % 09/09/21 06:05 Lymph % (Auto) 5.1 % 09/09/21 06:05 [place] % (Auto) 4.7 % 09/09/21 06:05 Eos % (Auto) 0.2 % 09/09/21 06:05 Baso % (Auto) 0.2 % 09/09/21 06:05 Neut # (Auto) 5.09 10^3/uL (1.8-7.7) 09/09/21 06:05 Lymph # (Auto) 0.3 10^3/uL (0.8-4.8) L 09/09/21 06:05 [place] # (Auto) 0.3 10^3/uL (0.2-0.9) 09/09/21 06:05 Eos # (Auto) 0.0 10^3/uL (0.0-0.8) 09/09/21 06:05 Baso # (Auto) 0.0 10^3/uL (0.0-0.1) 09/09/21 06:05 Nucleated RBC % (auto) 0 % 09/09/21 06:05 Nucleated RBCs # 0.0 /100WBC 09/09/21 06:05 Sodium 133 mmol/L (136-145) L 09/09/21 06:05 Potassium 3.8 mmol/L (3.5-5.1) 09/09/21 06:05 Chloride 102 mmol/L (98-107) 09/09/21 06:05 Carbon Dioxide 20 mmol/L (22-29) L 09/09/21 06:05 Anion Gap 14.8 (5-19) 09/09/21 06:05 BUN 5 mg/dL (6-20) L 09/09/21 06:05 Creatinine 0.5 mg/dL (0.5-0.9) 09/09/21 06:05 GFR Calculation 144.9 mL/min (90-130) H 09/09/21 06:05 Glucose 117 mg/dL (65-115) H 09/09/21 06:05 Calculated Osmolality 274 mOsm/kg (285-295) L 09/09/21 06:05 Calcium 8.4 mg/dL (8.5-10.5) L 09/09/21 06:05 Total Bilirubin 0.2 mg/dL (0.15-1.2) 09/09/21 06:05 AST 19 U/L (0-32) 09/09/21 06:05 ALT 19 U/L (0-33) 09/09/21 06:05 Alkaline Phosphatase 64 IU/L (35-105) 09/09/21 06:05 Total Protein 6.8 g/dL (6.6-8.7) 09/09/21 06:05 Albumin 4.1 g/dL (3.5-5.2) 09/09/21 06:05 Globulin 2.7 g/dL (1.3-4.6) 09/09/21 06:05 Lipase 16 U/L (13-60) 09/09/21 06:05 SARS-CoV-2 Ag (Rapid) Positive (Negative) H 09/09/21 08:33 Discharge Plan Discharge Patient Disposition: Home Clinical Impression: COVID-19 Condition: Stable Prescriptions: New promethazine 25 mg tablet 25 mg PO Q6H PRN (Reason: nausea and vomiting) Qty: 20 0RF No Action sertraline 25 mg Tablet 25 mg PO BEDTIME 0RF ibuprofen 800 mg Tablet 800 mg PO TID Qty: 60 0RF -U 106.5-1 mg Capsule 1 cap PO DAILY Qty: 60 0RF ferrous sulfate 325 mg (65 mg iron) tablet 325 mg PO BID Qty: 30 0RF Discharge Orders: Discharge ED (Routine); Ordered 09/09/21 Ordered By: Jason Sylvester Referrals: Mendoza Paredes MD [Primary Care Provider] - Discharge Diet: Clear Liquid Discharge Activity: Increase activity as tolerated Patient Instructions: COVID-19 (Coronavirus Disease 2019) (ED), Opioid Safety Sign Out Sign Out Data: Patient Sign Out occurred on 09/09/21 at 06:02. Patient's care was discussed, and care was transferred from to Jason Sylvester DO. Coding Level of Care Code ED Dimension Warehouse Supervisor for Chg Fwd Exam Comprehensive Documented by User: Jason Sylvester DO 09/09/21 16:45 HPI - Nausea/Vomiting/Diarrhea General: Chief complaint: Nausea/Vomiting/Diarrhea Stated complaint: n/v, aches, 9 weeks preg Time Seen by Provider: 09/09/21 05:21 PFSH ED PFSH: Medical History Ovarian cyst Surgical History History of cholecystectomy Status post laparoscopic appendectomy Social History Smoking and tobacco status: current every day smoker Course Vital Signs: Vital signs: Vital Signs Temperature 97.6 F 09/09/21 05:24 Pulse Rate 102 H 09/09/21 10:19 Respiratory Rate 16 09/09/21 10:19 Blood Pressure 117/72 09/09/21 10:19 Pulse Oximetry 99 09/09/21 10:19 MDM - Nausea/Vomiting/Diarrhea Medical Decision Making Care assumed from Dr. Eason at change of shift. Patient noted to have lymphocytopenia continuing headache despite fluids and medications. COVID rapid antigen start checked based on her onset of symptoms 3 days it was positive. Discussed patient's results with her. Expect her to have had a cough myalgias for the next week or more. Can use Zofran or promethazine as needed Tylenol as needed push fluids if there is any significant worsening of breathing return to the ER. Medical Records I reviewed the patient's medical records. Lab Data I reviewed the patient's lab results. : 09/09/21 06:05 09/09/21 06:05 Laboratory Results WBC 5.7 10^3/uL (4.0-10.0) 09/09/21 06:05 RBC 4.47 10^6/uL (4.1-5.3) 09/09/21 06:05 Hgb 12.5 g/dL (11.5-15.3) 09/09/21 06:05 Hct 38.4 % (37.0-47.0) 09/09/21 06:05 MCV 85.9 fl (81-99) 09/09/21 06:05 MCH 28.0 pg (28.0-34.0) 09/09/21 06:05 MCHC 32.6 g/dL (30.0-36.0) 09/09/21 06:05 RDW 13.2 % (12.1-15.1) 09/09/21 06:05 Plt Count 232 10^3/cmm (130-400) 09/09/21 06:05 MPV 9.5 fL (7.4-10.4) 09/09/21 06:05 Neut % (Auto) 89.3 % 09/09/21 06:05 Lymph % (Auto) 5.1 % 09/09/21 06:05 [place] % (Auto) 4.7 % 09/09/21 06:05 Eos % (Auto) 0.2 % 09/09/21 06:05 Baso % (Auto) 0.2 % 09/09/21 06:05 Neut # (Auto) 5.09 10^3/uL (1.8-7.7) 09/09/21 06:05 Lymph # (Auto) 0.3 10^3/uL (0.8-4.8) L 09/09/21 06:05 [place] # (Auto) 0.3 10^3/uL (0.2-0.9) 09/09/21 06:05 Eos # (Auto) 0.0 10^3/uL (0.0-0.8) 09/09/21 06:05 Baso # (Auto) 0.0 10^3/uL (0.0-0.1) 09/09/21 06:05 Nucleated RBC % (auto) 0 % 09/09/21 06:05 Nucleated RBCs # 0.0 /100WBC 09/09/21 06:05 Sodium 133 mmol/L (136-145) L 09/09/21 06:05 Potassium 3.8 mmol/L (3.5-5.1) 09/09/21 06:05 Chloride 102 mmol/L (98-107) 09/09/21 06:05 Carbon Dioxide 20 mmol/L (22-29) L 09/09/21 06:05 Anion Gap 14.8 (5-19) 09/09/21 06:05 BUN 5 mg/dL (6-20) L 09/09/21 06:05 Creatinine 0.5 mg/dL (0.5-0.9) 09/09/21 06:05 GFR Calculation 144.9 mL/min (90-130) H 09/09/21 06:05 Glucose 117 mg/dL (65-115) H 09/09/21 06:05 Calculated Osmolality 274 mOsm/kg (285-295) L 09/09/21 06:05 Calcium 8.4 mg/dL (8.5-10.5) L 09/09/21 06:05 Total Bilirubin 0.2 mg/dL (0.15-1.2) 09/09/21 06:05 AST 19 U/L (0-32) 09/09/21 06:05 ALT 19 U/L (0-33) 09/09/21 06:05 Alkaline Phosphatase 64 IU/L (35-105) 09/09/21 06:05 Total Protein 6.8 g/dL (6.6-8.7) 09/09/21 06:05 Albumin 4.1 g/dL (3.5-5.2) 09/09/21 06:05 Globulin 2.7 g/dL (1.3-4.6) 09/09/21 06:05 Lipase 16 U/L (13-60) 09/09/21 06:05 SARS-CoV-2 Ag (Rapid) Positive (Negative) H 09/09/21 08:33 Discharge Plan Discharge Patient Disposition: Home Clinical Impression: COVID-19 Condition: Stable Prescriptions: New promethazine 25 mg tablet 25 mg PO Q6H PRN (Reason: nausea and vomiting) Qty: 20 0RF No Action sertraline 25 mg Tablet 25 mg PO BEDTIME 0RF ibuprofen 800 mg Tablet 800 mg PO TID Qty: 60 0RF -U 106.5-1 mg Capsule 1 cap PO DAILY Qty: 60 0RF ferrous sulfate 325 mg (65 mg iron) tablet 325 mg PO BID Qty: 30 0RF Discharge Orders: Discharge ED (Routine); Ordered 09/09/21 Ordered By: Jason Sylvester Referrals: Mendoza Paredes MD [Primary Care Provider] - Discharge Diet: Clear Liquid Discharge Activity: Increase activity as tolerated Patient Instructions: COVID-19 (Coronavirus Disease 2019) (ED), Opioid Safety Sign Out Sign Out Data: Patient Sign Out occurred on 09/09/21 at 06:02. Patient's care was discussed, and care was transferred from to Jason Sylvester DO. Coding Level of Care Code ED Dimension Warehouse Supervisor for Chg Fwd Exam Comprehensive
[2021-09-09] MEDS: metoclopramide 5 mg/mL SDV 2 mL 10 MG IVP (05:36)
[2021-09-09] MEDS: diphenhydrAMINE 50 mg/mL SDV 1mL IVP (05:36)
[2021-09-09] MEDS: sodium chloride 0.9% 1,000 ML 999 ML IV (05:36)
[2021-09-09 06:11] LABS: Basophils % 0.2 %; Eosinophils % 0.2 %; Hematocrit 38.4 % (37.0-47.0); Hemoglobin 12.5 g/dL (11.5-15.3); Lymphocytes # 0.3 10^3/uL (0.8-4.8); Lymphocytes % 5.1 %; Mean Corpuscular HGB Conc 32.6 g/dL (30.0-36.0); Mean Corpuscular Volume 85.9 fl (81-99); Mean Platelet Volume 9.5 fL (7.4-10.4); Monocytes # 0.3 10^3/uL (0.2-0.9); Monocytes % 4.7 %; Neutrophils # 5.09 10^3/uL (1.8-7.7); Neutrophils % 89.3 %; Nucleated Red Blood Cells % 0 %; Platelet Count 232 10^3/cmm (130-400); Red Blood Count 4.47 10^6/uL (4.1-5.3); Red Cell Distribution Width 13.2 % (12.1-15.1); White Blood Count 5.7 10^3/uL (4.0-10.0)
[2021-09-09 06:34] LABS: Alanine Aminotransferase 19 U/L (0-33); Albumin Level 4.1 g/dL (3.5-5.2); Alkaline Phosphatase 64 IU/L (35-105); Anion Gap 14.8 (5-19); Aspartate Amino Transferase 19 U/L (0-32); Blood Urea Nitrogen 5 mg/dL (6-20); Calcium 8.4 mg/dL (8.5-10.5); Carbon Dioxide 20 mmol/L (22-29); Chloride 102 mmol/L (98-107); Globulin 2.7 g/dL (1.3-4.6); Glomerular Filtration Rate 144.9 mL/min (90-130); Glucose 117 mg/dL (65-115); Lipase 16 U/L (13-60); Osmolality Calculated 274 mOsm/kg (285-295); Potassium 3.8 mmol/L (3.5-5.1); Sodium 133 mmol/L (136-145); Total Bilirubin 0.2 mg/dL (0.15-1.2); Total Protein 6.8 g/dL (6.6-8.7)
--- NOTE | 2021-09-09 06:56 | PC.NURSE ---
report given to aurelia PARSON
[2021-09-09] MEDS: dextrose 5%-sod chloride 0.9% 1,000 ML 1000 ML IV (07:14)
[2021-09-09 07:16] VITALS: BP 113/69; PULSE 100; RESP 16; O2SAT 94
--- NOTE | 2021-09-09 08:23 | PC.NURSE ---
MORPHINE ORDERED IM INSTEAD OF IVP, IM ORDER CANCELLED AND IVP ORDER ENTERED PER MD GARCIA. PATIENT GETTING 4 MG IVP MORPHINE.
[2021-09-09 08:25] VITALS: RESP 16
[2021-09-09] MEDS: morphine 4 mg/mL SDV 1 mL IVP (08:25)
[2021-09-09 08:29] VITALS: BP 113/69; PULSE 106; O2SAT 99
[2021-09-09 09:24] VITALS: BP 133/69; PULSE 98; RESP 14; O2SAT 98
[2021-09-09 09:44] LABS: SARS Covid-2 Antigen Positive (Negative)
[2021-09-09 10:19] VITALS: BP 117/72; PULSE 102; RESP 16; O2SAT 99
== END 2021-09-09 10:24 | disposition home or self-care (01) ==
PROVIDERS: Emergency Medicine; Emergency Provider Family Medicine; PCP Family Medicine
DX: O98.511 Other viral diseases complicating pregnancy, first trimester (principal); U07.1 COVID-19; O99.331 Smoking (tobacco) complicating pregnancy, first trimester; F17.210 Nicotine dependence, cigarettes, uncomplicated; Z3A.09 9 weeks gestation of pregnancy
CPT/HCPCS: 80053; 83690; 85025; 87426; 96361; 96374; 96375; 99284; J1200; J2270; J2765; J7030

== ENCOUNTER 2021-12-12 20:50 | Outpatient (CLI) | payer BC, MEDICAID, SELFPAY ==
[2021-12-12 21:36] LABS: Basophils % 0.1 %; Eosinophils # 0.1 10^3/uL (0.0-0.8); Eosinophils % 0.4 %; Hematocrit 36.3 % (37.0-47.0); Hemoglobin 12.3 g/dL (11.5-15.3); Lymphocytes # 1.1 10^3/uL (0.8-4.8); Lymphocytes % 7.8 %; Mean Corpuscular HGB Conc 33.9 g/dL (30.0-36.0); Mean Corpuscular Hemoglobin 28.1 pg (28.0-34.0); Mean Corpuscular Volume 82.9 fl (81-99); Mean Platelet Volume 10.2 fL (7.4-10.4); Monocytes # 0.7 10^3/uL (0.2-0.9); Monocytes % 5.1 %; Neutrophils # 12.07 10^3/uL (1.8-7.7); Neutrophils % 86.2 %; Nucleated Red Blood Cells % 0 %; Platelet Count 223 10^3/cmm (130-400); Red Blood Count 4.38 10^6/uL (4.1-5.3); Red Cell Distribution Width 14.4 % (12.1-15.1)
[2021-12-12] MEDS: sodium chloride 0.9% 1,000 ML 999 ML IV ×2 (21:38→23:07)
[2021-12-12] MEDS: ondansetron 2 mg/ML SDV 2 mL 4 MG IVP (21:38)
[2021-12-12 21:58] LABS: Alanine Aminotransferase 10 U/L (0-33); Alkaline Phosphatase 81 IU/L (35-105); Anion Gap 18.6 (5-19); Aspartate Amino Transferase 13 U/L (0-32); Blood Urea Nitrogen 5 mg/dL (6-20); Calcium 9.2 mg/dL (8.5-10.5); Carbon Dioxide 17 mmol/L (22-29); Chloride 102 mmol/L (98-107); Globulin 3.2 g/dL (1.3-4.6); Glomerular Filtration Rate 187.4 mL/min (90-130); Glucose 101 mg/dL (65-115); Osmolality Calculated 275 mOsm/kg (285-295); Potassium 3.6 mmol/L (3.5-5.1); Sodium 134 mmol/L (136-145); Total Bilirubin 0.4 mg/dL (0.15-1.2); Total Protein 7.2 g/dL (6.6-8.7)
[2021-12-12 22:00] VITALS: BMI 36.1
[2021-12-12 22:02] VITALS: RESP 16
[2021-12-12 22:04] VITALS: TEMP 36.7
[2021-12-12] MEDS: acetaminophen 325 mg Tablet 650 MG PO (22:17)
[2021-12-12 22:27] LABS: D Dimer 0.67 ug/mIFEU (0-0.59)
[2021-12-12 22:33] LABS: Influenza A by IFA Negative (Negative); Influenza B by IFA Negative (Negative)
[2021-12-12 22:44] VITALS: BP 116/55; PULSE 114
== END 2021-12-12 22:26 ==
LOC: OPOB 20:55 → OBGYN 21:07
PROVIDERS: PCP Family Medicine; Visit Provider Family Medicine
DX: O26.899 Other specified pregnancy related conditions, unspecified trimester (principal); Z3A.00 Weeks of gestation of pregnancy not specified; R10.9 Unspecified abdominal pain; R07.9 Chest pain, unspecified
CPT/HCPCS: 36415; 80053; 85025; 85378; 86141; 87804; 99211; J2405; J7030

== ENCOUNTER 2021-12-12 23:26 | Emergency (ER) | payer BC, MEDICAID, SELFPAY ==
[2021-12-12 23:39] VITALS: BP 117/69; PULSE 116; RESP 18; TEMP 36.7; O2SAT 97; BMI 36.2
[2021-12-12 23:45] VITALS: BP 114/60; PULSE 108; RESP 18; O2SAT 94
--- NOTE | 2021-12-12 23:52 | XRR_ITS ---
PROCEDURE INFORMATION: Exam: XR Chest Exam date and time: 12/13/2021 12:13 AM Age: 31 years old Clinical indication: Other: Epigastric pain; Additional info: Cp TECHNIQUE: Imaging protocol: XR of the chest. Views: 1 view. COMPARISON: No relevant prior studies available. FINDINGS: Lungs: No CHF/pulmonary edema. Poor inspiration somewhat limits evaluation, especially of the lung bases. Visible lungs appear essentially clear. Pleural spaces: No visible pneumothorax. No definite pleural fluid. Heart/Mediastinum: Heart size is upper range of normal. Bones/joints: No significant acute finding. XR/XR chest 1V portable [id number] IMPRESSION: 1. No definite CHF or pneumonia. 2. Other findings discussed above.
--- NOTE | 2021-12-13 00:01 | ED_ITS ---
HPI - Nausea/Vomiting/Diarrhea General: Chief complaint: Nausea/Vomiting/Diarrhea Stated complaint: abdomen pain Time Seen by Provider: 12/12/21 23:43 Source: patient Mode of arrival: ambulatory Limitations: no limitations History of Present Illness: 31-year-old female who is currently 23 weeks states that she mainly has been having bilateral leg pain and cannot control movement of her legs since 1 today she states that time she has had neck pain chest pain abdominal pain and nausea and vomiting but states those of all resolved but she still continues to have bilateral leg pain with jerking movements. No vaginal bleeding no abdominal pain at this time. Associated nausea: Yes Associated symtoms: Reports nausea; Denies chest pain, dysuria or headache(s) Review of Systems Const: Reports: body aches; Denies: fever(s), chills or change in appetite Eyes: Denies: blurry vision or eye discomfort ENMT: Denies: throat pain or dental pain Card: Denies: chest pain Resp: Denies: dyspnea GI: Reports: nausea and vomiting; Denies: abdominal pain or diarrhea : Denies: dysuria Musc: Reports: extremity pain; Denies: neck pain or back pain Skin/Breast: Denies: rash Neuro: Denies: headache(s) Psych: Denies: depression Matthew/Lymph: Denies: easy bruising All/Imm: Denies: urticaria PFSH ED PFSH: Medical History Ovarian cyst Surgical History History of cholecystectomy Status post laparoscopic appendectomy Social History Smoking and tobacco status: current every day smoker Female Reproductive History: Date of last menstrual period: 05/17/20 Physical Exam Const: COMMON NORMALS: no acute distress, patient oriented x3 and healthy appearing HENMT: COMMON NORMALS: normocephalic and atraumatic HEAD & SCALP: normocephalic and atraumatic Eye: COMMON NORMALS: Equal, round and reactive pupils present and EOMs intact bilaterally PUPIL: Yes Equal, round and reactive pupils present Neck/C-Spine: COMMON NORMALS: full ROM and supple Chest: COMMONS NORMALS: normal inspection of the chest and normal palpation of entire chest wall Resp: COMMON NORMALS: normal respiratory effort, No retractions, No use of accessory muscles and clear to auscultation bilaterally AUSCULTATION: clear to auscultation bilaterally Cardio: COMMON NORMALS: regular rate, regular rhythm and No murmurs present (Cardio) RATE: regular rate RHYTHM: regular rhythm GI: COMMON NORMALS: Normal to inspection, nondistended, normoactive bowel sounds present OTHER: gravid uterus Extremity: COMMON NORMALS: normal to inspection and full ROM Neuro: COMMON NORMALS: patient oriented x3, moves all extremities and no focal motor deficits Psych: COMMON NORMALS: mental status grossly normal, Normal thought process present and cooperative THOUGHT PROCESS: Normal thought process present Skin: COMMON NORMALS: no rashes or lesions noted and no wounds GENERAL SKIN EXAM: no rashes or lesions noted Course Vital Signs: Vital signs: Vital Signs Temperature 98.1 F 12/12/21 23:39 Pulse Rate 103 H 12/13/21 00:15 Respiratory Rate 16 12/13/21 00:15 Blood Pressure 109/60 12/13/21 00:15 Pulse Oximetry 95 12/13/21 00:15 MDM - Nausea/Vomiting/Diarrhea Medical Decision Making Patient presents here with bilateral leg pain along with movements consistent with likely restless leg. Patient's symptoms have resolved here with Reglan she feels much improved her blood work over from OB was normal she is stable for discharge we will prescribe her Reglan for home she is to follow-up with PCP and return if worsening. Discharge Plan Discharge Patient Disposition: Home Clinical Impression: Bilateral leg pain, Condition: Stable Prescriptions: New Reglan 10 mg tablet 10 mg PO Q6H PRN (Reason: nausea and vomiting) Qty: 20 0RF No Action promethazine 25 mg tablet 25 mg PO Q6H PRN (Reason: nausea and vomiting) Qty: 20 0RF sertraline 25 mg Tablet 25 mg PO BEDTIME 0RF ibuprofen 800 mg Tablet 800 mg PO TID Qty: 60 0RF -U 106.5-1 mg Capsule 1 cap PO DAILY Qty: 60 0RF ferrous sulfate 325 mg (65 mg iron) tablet 325 mg PO BID Qty: 30 0RF Discharge Orders: Discharge ED (Routine); Ordered 12/13/21 Ordered By: Brendon Eason Referrals: Mendoza Paredes MD [Primary Care Provider] - 1-3 days Discharge Diet: Advance as tolerated Discharge Activity: Resume usual activity Patient Instructions: Leg Pain (ED) Coding Level of Care Code ED Ware Cleaner for Chg Fwd Exam Comprehensive
[2021-12-13] MEDS: metoclopramide 5 mg/mL SDV 2 mL 10 MG IVP (00:02)
[2021-12-13 00:04] VITALS: RESP 20; O2SAT 95
[2021-12-13] MEDS: diphenhydrAMINE 50 mg/mL SDV 1mL IVP (00:04)
[2021-12-13] MEDS: morphine 4 mg/mL SDV 1 mL IVP (00:04)
[2021-12-13] MEDS: sodium chloride 0.9% 1,000 ML 999 ML IV (00:10)
[2021-12-13 00:15] VITALS: BP 109/60; PULSE 103; RESP 16; O2SAT 95
== END 2021-12-13 00:45 | disposition home or self-care (01) ==
PROVIDERS: Emergency Provider Emergency Medicine; PCP Family Medicine
DX: O26.892 Other specified pregnancy related conditions, second trimester (principal); M79.605 Pain in left leg; M79.604 Pain in right leg
CPT/HCPCS: 71045; 96361; 96374; 96375; 99284; J1200; J2270; J2765; J7030

== ENCOUNTER → 2021-12-27 11:10 | Outpatient (BNVA) | payer BC, MEDICAID, SELFPAY | PROVIDERS: PCP Family Medicine; Visit Provider Family Medicine | DX: Z34.80 Encounter for supervision of other normal pregnancy, unspecified trimester (principal) | CPT/HCPCS: 82950 ==

== ENCOUNTER 2022-01-10 10:45 | Outpatient (CLI) | payer BC, MEDICAID, SELFPAY ==
[2022-01-10 11:25] LABS: Glucose Fasting Gestational 107
[2022-01-10 13:32] LABS: Glucose 1 Hour 197 mg/dL
[2022-01-10 14:53] LABS: Glucose 2 Hour 166 mg/dL
[2022-01-10 15:27] LABS: Glucose 3 Hour 141 mg/dL
== END 2022-01-10 10:46 | disposition home or self-care (01) ==
LOC: LAB 10:54
PROVIDERS: PCP Family Medicine; Visit Provider Family Medicine
DX: R73.02 Impaired glucose tolerance (oral) (principal)
CPT/HCPCS: 82951; 82952

== ENCOUNTER → 2022-02-07 13:37 | Outpatient (BNVA) | payer BC, MEDICAID, SELFPAY | PROVIDERS: PCP Family Medicine; Visit Provider Nurse Practitioner Family | DX: R05.9 Cough, unspecified (principal) | CPT/HCPCS: 87400; 87635 ==

== ENCOUNTER → 2022-02-21 09:30 | Day surgery (SDC) | payer BC, MEDICAID, SELFPAY ==
--- NOTE | 2022-02-21 10:34 | PC.NURSE ---
While waiting for her Rhogam, patient states she feels like her blood sugar is high. Blood sugar checked and noted at 86. Pt provided an orange juice.
[2022-02-21 11:56] VITALS: BP 103/70; PULSE 72; RESP 18; TEMP 36.4; O2SAT 98
[2022-02-21 12:10] VITALS: BP 103/70; PULSE 72; RESP 18; TEMP 36.4; O2SAT 98
[2022-05-08 07:53] LABS: Glucose Point of Care 86 mg/dL (70-110)
== END ==
PROVIDERS: PCP Family Medicine; Visit Provider Family Medicine
DX: Z34.80 Encounter for supervision of other normal pregnancy, unspecified trimester (principal)
CPT/HCPCS: 36415; 36416; 36430; 81000; 82962; 86850; 86900; 87086; 90384; 96372

== ENCOUNTER → 2022-02-28 15:42 | Outpatient (BNVA) | payer BC, MEDICAID, SELFPAY | PROVIDERS: PCP Family Medicine; Visit Provider Family Medicine | DX: R25.2 Cramp and spasm (principal) | CPT/HCPCS: 85025 ==

== ENCOUNTER 2022-03-01 10:51 | Outpatient (CLI) | payer BC, MEDICAID, SELFPAY ==
--- NOTE | 2022-03-01 11:00 | USCV_ITS ---
Sharri Alvarado Age: 31 Gender: F : 1990 Exam Date: 03/01/2022 11:16 Ordering Phys: Mendoza Paredes MD Technologist: Holger Elizabeth Exam Location: [facility] [place] Indication: swelling/ pain in left lower extremity HISTORY: Patient is and has left calf pain. PROCEDURES: Venous duplex imaging was performed in only the left lower extremity. The following venous structures were evaluated: common femoral vein, profunda vein, proximal portion of the greater saphenous vein, superficial femoral vein, and the popliteal vein. In addition, the posterior tibial and peroneal trunk were evaluated. Serial compression, augmentation maneuvers, and spectral Doppler flow evaluation were performed. FINDINGS: Normal 2-D Doppler and augmentation and compressibility throughout the lower extremity venous structures. Additional imaging through the proximal calf veins also reveals no thrombus. Limited evaluation of the greater saphenous vein is patent with no thrombus. CONCLUSIONS No DVT left lower extremity. Dr. Karmen Rutherford DO (Electronically Signed) Final Date: 01 March 2022 11:55 S
[2022-03-01 12:06] LABS: Magnesium 1.7 mg/dL (1.7-2.3); Potassium 3.8 mmol/L (3.5-5.1)
== END 2022-03-01 10:52 | disposition home or self-care (01) ==
PROVIDERS: PCP Family Medicine; Visit Provider Family Medicine
DX: Z34.80 Encounter for supervision of other normal pregnancy, unspecified trimester (principal); M79.89 Other specified soft tissue disorders; R25.2 Cramp and spasm
CPT/HCPCS: 83735; 84132; 93971

== ENCOUNTER 2022-03-07 10:41 | Outpatient (CLI) | payer BC, MEDICAID, SELFPAY ==
--- NOTE | 2022-03-07 10:30 | US_ITS ---
WS: [id number] LIMITED OBSTETRICAL ULTRASOUND HISTORY: Gestational DM COMPARISON: 11/15/2021, 09/27/2021 Presentation: Vertex. Cervix: Closed and normal length. Placenta: Anterior, no previa or abruption. Grade: 1 HEART: FHR of 160 BPM. measurements: BPD = 8.8 cm = 35w5d; 75th percentile HC = 32.1 cm = 36w2d; 50th percentile AC = 31.3 cm = 35w2d; 68th percentile FL = 6.7 cm = 34w5d; 37th percentile HARINDER: 21.9 cm EFW: 2626 g; 68th %. AGA by ultrasound: 35w4d FELICITAS by ultrasound: 04/07/2022 Measurements are internally concordant. Appropriate growth since the first trimester ultrasound. US/US OB limited [id number] IMPRESSION: 1. Single intrauterine gestation of 35 weeks 4 days with an EDC of 04/07/2022. 2. Normal growth. 3. Estimated weight at the 68th percentile. 4. Amniotic fluid index below the 95th percentile.
== END 2022-03-07 10:42 | disposition home or self-care (01) ==
LOC: RAD 10:43
PROVIDERS: PCP Family Medicine; Visit Provider Family Medicine
DX: O24.419 Gestational diabetes mellitus in pregnancy, unspecified control (principal); Z3A.35 35 weeks gestation of pregnancy
CPT/HCPCS: 76815

== ENCOUNTER 2022-03-14 11:56 | Outpatient (CLI) | payer BC, MEDICAID, SELFPAY ==
[2022-03-14 12:30] VITALS: RESP 17
[2022-03-14 12:36] VITALS: BP 112/64; PULSE 93
[2022-03-14 12:51] VITALS: BP 103/57; PULSE 90
[2022-03-14 13:06] VITALS: BP 111/63; PULSE 80
== END 2022-03-14 13:11 | disposition home or self-care (01) ==
LOC: OPOB 12:07 → OBGYN 12:08
PROVIDERS: PCP Family Medicine; Visit Provider Family Medicine
DX: O24.419 Gestational diabetes mellitus in pregnancy, unspecified control (principal); Z3A.00 Weeks of gestation of pregnancy not specified
CPT/HCPCS: 59025; 87081

== ENCOUNTER 2022-03-17 10:25 | Outpatient (CLI) | payer BC, MEDICAID, SELFPAY ==
[2022-03-17 10:25] VITALS: BMI 35.9
[2022-03-17 10:45] VITALS: BP 140/79; PULSE 85
[2022-03-17 11:06] VITALS: BP 106/69; PULSE 110
[2022-03-17 11:26] VITALS: BP 137/80; PULSE 115
[2022-03-17 12:32] VITALS: BP 137/80; PULSE 115
== END 2022-03-17 11:45 | disposition home or self-care (01) ==
LOC: OPOB 10:26 → OBGYN 10:30
PROVIDERS: PCP Family Medicine; Visit Provider Family Medicine
DX: O24.419 Gestational diabetes mellitus in pregnancy, unspecified control (principal); Z3A.00 Weeks of gestation of pregnancy not specified
CPT/HCPCS: 59025; 99211

== ENCOUNTER 2022-03-19 14:05 | Outpatient (CLI) | payer BC, MEDICAID, SELFPAY ==
[2022-03-19 14:25] VITALS: BP 108/61; PULSE 92
[2022-03-19 14:40] VITALS: BP 101/54; PULSE 90
[2022-03-19 14:58] VITALS: BMI 35.3
== END 2022-03-19 14:57 | disposition home or self-care (01) ==
LOC: OPOB 14:05 → OBGYN 14:48
PROVIDERS: PCP Family Medicine; Visit Provider Family Medicine
DX: O26.899 Other specified pregnancy related conditions, unspecified trimester (principal); Z3A.00 Weeks of gestation of pregnancy not specified
CPT/HCPCS: 59025; 83986; 99211

== ENCOUNTER 2022-03-21 13:45 | Outpatient (CLI) | payer BC, MEDICAID, SELFPAY ==
[2022-03-21 14:04] VITALS: BP 110/70; PULSE 100
[2022-03-21 14:20] VITALS: BP 110/68; PULSE 100; BMI 36.1
[2022-03-21 14:35] VITALS: BP 107/65; PULSE 91
== END 2022-03-21 14:50 | disposition home or self-care (01) ==
LOC: OPOB 13:52 → OBGYN 13:53
PROVIDERS: PCP Family Medicine; Visit Provider Family Medicine
DX: O24.419 Gestational diabetes mellitus in pregnancy, unspecified control (principal); Z3A.00 Weeks of gestation of pregnancy not specified
CPT/HCPCS: 59025

== ENCOUNTER 2022-03-21 15:48 | Outpatient (CLI) | payer BC, MEDICAID, SELFPAY ==
--- NOTE | 2022-03-21 15:58 | US_ITS ---
WS: [id number] OB ultrasound, 03/21/2022 Clinical Data: Gestational DM Comparison: OB ultrasound, 03/07/2022. Findings: There is a single intrauterine in the vertex presentation. The placenta is Anterior and gra de 1. There is a large amount of amnionic fluid. The heart rate is 136 beats per minute. Measurements of growth and development: BPD: 9.4 cm 38 weeks 2 days HC: 34.3 cm 39 weeks 4 days AC: 33.0 cm 36 weeks 6 days FL: 7.2 cm 36 weeks 6 days The estimated weight is 3178 or approximately 7 lbs. 0 oz. The estimated gestational age is 37w6d with an FELICITAS of approximately 04/05/2022. / OB limited [id number] Impression: 1. Single intrauterine in vertex presentation. 2. Estimated gestational age 37w6d with an FELICITAS of 04/05/2022. 3. heart rate 136 beats per minute. 4. Polyhydramnios.
== END 2022-03-21 15:49 | disposition home or self-care (01) ==
PROVIDERS: PCP Family Medicine; Visit Provider Family Medicine
DX: O24.419 Gestational diabetes mellitus in pregnancy, unspecified control (principal); Z3A.37 37 weeks gestation of pregnancy
CPT/HCPCS: 76815

== ENCOUNTER 2022-03-24 10:12 | Outpatient (CLI) | payer BC, MEDICAID, SELFPAY ==
[2022-03-24 10:05] VITALS: BMI 35.6
[2022-03-24 10:13] VITALS: RESP 17
[2022-03-24 10:34] VITALS: BP 132/75; PULSE 96
[2022-03-24 10:48] VITALS: BP 129/74; PULSE 103
[2022-03-24 11:00] VITALS: RESP 17
== END 2022-03-24 11:05 | disposition home or self-care (01) ==
LOC: OPOB 10:12 → OBGYN 10:13
PROVIDERS: PCP Family Medicine; Visit Provider Family Medicine
DX: O24.419 Gestational diabetes mellitus in pregnancy, unspecified control (principal); Z3A.00 Weeks of gestation of pregnancy not specified
CPT/HCPCS: 59025; 99211

== ENCOUNTER 2022-03-26 12:37 | Outpatient (CLI) | payer BC, MEDICAID, SELFPAY ==
[2022-03-26 12:45] VITALS: BP 117/84; PULSE 100
[2022-03-26 13:06] VITALS: BP 117/65; PULSE 85
[2022-03-26 13:26] VITALS: BP 113/70; PULSE 89
[2022-03-26 13:38] VITALS: BMI 35.1
[2022-03-26 13:45] VITALS: BP 118/65; PULSE 81
[2022-03-26 14:05] VITALS: BP 116/66; PULSE 88; RESP 15
--- NOTE | 2022-03-26 14:05 | USR_ITS ---
PROCEDURE INFORMATION: Exam: US Biophysical Profile Without Non-Stress Test Exam date and time: 03/26/2022 2:21 PM Age: 31 years old Clinical indication: Condition or disease; Amniotic fluid abnormalities: ; Polyhdramnios - high volume; Third trimester (=28 weeks 0 days); ; Patient HX: Gest dm and known polyhydramnios; Additional info: Gestational diabetes TECHNIQUE: Imaging protocol: US biophysical profile without non-stress testing. COMPARISON: US OB >= 14 weeks fetus [id number] 11/15/2021 1:17 PM FINDINGS: heart rate: 160 bpm presentation: Cephalic Placenta: Anterior without evidence of previa. Amniotic fluid: Amniotic fluid volume is is just below the 95th percentile at 22.4 cm. Amniotic fluid index: HARINDER is 22.4 cm. BIOPHYSICAL PROFILE: breathing movement (BPP): 2/2 body movement (BPP): 2/2 tone (BPP): 2/2 Amniotic fluid (BPP): 2/2 Biophysical profile score (BPP): 8/8 MATERNAL ANATOMY: Cervix: Cervical length measures 3.6 cm. US/US OB BPP wo NST 43310 IMPRESSION: Normal biophysical profile of 8/8. HARINDER is just below the 95th percentile at 22.4 cm.
== END 2022-03-26 14:55 | disposition home or self-care (01) ==
LOC: OPOB 12:42 → OBGYN 12:43
PROVIDERS: PCP Family Medicine; Visit Provider Family Medicine
DX: O26.899 Other specified pregnancy related conditions, unspecified trimester (principal); Z3A.00 Weeks of gestation of pregnancy not specified; R10.9 Unspecified abdominal pain
CPT/HCPCS: 59025; 76819; 99211

== ENCOUNTER 2022-03-31 12:50 | Outpatient (CLI) | payer BC, MEDICAID, SELFPAY ==
[2022-03-31 13:02] VITALS: BP 123/72; PULSE 78
[2022-03-31 13:11] VITALS: RESP 18; BMI 35.5
[2022-03-31 13:22] VITALS: BP 121/61; PULSE 92
[2022-03-31 13:42] VITALS: BP 118/78; PULSE 100
== END 2022-03-31 13:50 | disposition home or self-care (01) ==
LOC: OPOB 12:57 → OBGYN 12:58
PROVIDERS: Absent Provider Family Medicine; Family Provider Family Medicine; PCP Family Medicine; Visit Provider Family Medicine
DX: O24.419 Gestational diabetes mellitus in pregnancy, unspecified control (principal); Z3A.00 Weeks of gestation of pregnancy not specified
CPT/HCPCS: 59025

== ENCOUNTER 2022-04-03 11:56 | Inpatient (IN) | payer BC, MEDICAID, SELFPAY ==
[2022-04-03] VITALS (59 sets, daily range): BP systolic 71–172; BP diastolic 34–77; PULSE 68–112; RESP 17; TEMP 36.1–36.2; O2SAT 98–100; BMI 35.5
[2022-04-03] MEDS: miSOPROStol 100 mcg tablet 25 MCG VAGINAL (13:04)
[2022-04-03 13:13] LABS: Glucose Point of Care 95 mg/dL (70-110)
[2022-04-03] MEDS: alum-mag-hydroxide-sime 30 mL UDC PO ×2 (13:14→18:32)
[2022-04-03 14:47] LABS: Basophils % 0.1 %; Eosinophils # 0.2 10^3/uL (0.0-0.8); Eosinophils % 2.3 %; Hematocrit 34.3 % (37.0-47.0); Hemoglobin 11.7 g/dL (11.5-15.3); Lymphocytes # 2.1 10^3/uL (0.8-4.8); Lymphocytes % 25.5 %; Mean Corpuscular HGB Conc 34.1 g/dL (30.0-36.0); Mean Corpuscular Volume 82.1 fl (81-99); Mean Platelet Volume 11.3 fL (7.4-10.4); Monocytes # 0.5 10^3/uL (0.2-0.9); Neutrophils % 65.5 %; Nucleated Red Blood Cells % 0 %; Platelet Count 192 10^3/cmm (130-400); Red Blood Count 4.18 10^6/uL (4.1-5.3); Red Cell Distribution Width 14.6 % (12.1-15.1); White Blood Count 8.1 10^3/uL (4.0-10.0)
[2022-04-03 17:17] LABS: Glucose Point of Care 62 mg/dL (70-110)
--- NOTE | 2022-04-03 17:41 | P.HP_ITS ---
Providers/Chief Complaint Admitting Physician: Mendoza Paredes MD Primary Care Provider: Mendoza Paredes MD Chief Complaint: Induction History of Present Illness Sharri Alvarado is a 31 year old @ 38.5 weeks by LMP c/w 12 wk US. Preg c/b h/o preeclampsia without severe features, Rh neg (positive previously at the hospital), Anxiety on Sertraline, h/o elevated 1-hr GTT , rubella equivocal, low progesterone, COVID-19 - 09/09/21, gestational DM on Levemir 10 units daily. The patient is doing well at this time. She presents for induction of labor due to gestational diabetes on insulin that has been difficult to control at times. Her glucose upon admission was improved to 95. Upon presentation the patient is 11/02/-. The patient is GBS negative. The patient desires a tubal ligation. The patient is doing well at this time. She denies any fevers, chest pain, shortness of breath, diarrhea, constipation, dysuria, mixed fluid, vaginal bleeding. She did have a nausea and vomiting that she feels is associated with acid reflux. Medications/Allergies Home Medications Medication Instructions Recorded Confirmed Last Taken Type multivitamin no.51-ferrous 1 cap PO DAILY #60 caps 02/13/21 04/03/22 04/02/22 19:00 Rx fumarate 106.5 mg-folic acid 1 mg capsule (-U) sertraline 25 mg tablet 50 mg PO DAILY 02/03/22 04/03/22 04/02/22 19:00 History aspirin 81 mg tablet,delayed 81 mg PO DAILY 02/07/22 04/03/22 04/03/22 10:00 History release calcium carbonate 80 mg-magnesium 1 tab PO BID 03/19/22 04/03/22 04/03/22 10:00 History carbonate 115 mg tablet (Magnebind 400) insulin glargine 100 unit/mL 10 unit SUBCUT DAILY 03/19/22 04/03/22 04/02/22 19:00 History subcutaneous cartridge Allergies Allergy/AdvReac Type Severity Reaction Status Date / Time No Known Allergies Allergy Verified 03/08/22 14:04 Additional Medication Information ? Estimated Delivery Date Method Current WG Current Estimate 04/12/22C LMP (Certain) 37w 6d Other Estimates 04/07/22 Ultrasound #1 38w 4d Comments: /delivery plan:? - Anesthesia plan:? Epidural Toxoplasm. precautions:? Counseled Physical activity:? Counseled Environment/work hazards: Counseled Travel precautions:? Counseled Nutrition:? Counseled Quit smoking:? Counseled Alcohol/chem use: Counseled Childbirth classes:? - Chairman And Chief Executive Officer:? Hospital tour:? Counseled Signs/Sx labor:? Counseled Rhogam needed: Done counseling:? - Feeding plans:? Breast Cut cord:? - Circumcision:? No - It's a girl car seat:? Own PP control:? - Consent forms signed? Signed on 03/21/22 PP BTL plans:? Tubal - papers signed on 01/24/22 Contractions: Persistent contractions - Every 3-7 min Baby Active: Yes Bleeding: None Leakage of Fluid: None? Sharri is a 31 y/o @ 38.5 weeks by LMP c/w 12 wk US. Preg c/b h/o preeclampsia without severe features, Rh neg (positive previously at the hospital), Anxiety on Sertraline, h/o elevated 1-hr GTT , rubella equivocal, low progesterone, COVID-19 - 09/09/21, gestational DM on Levemir - PNV - Started daily aspirin 81mg at 12 weeks? - Tdap done - Scheduled for tubal consultation - Done with Dr Milner - Rashi/Fri NST's - Scheduled, US's once a week - scheduled - CBC - 11.4 - Scheduled anesthesia interview - Follow up on this as not scheduled yet - GBS neg - Induction on 04/03 - noon - 11/02/-3 on 03/27/22 - Likely viral GI infection - Decrease levemir to 5 units until better then increase back to 10 units. PFSH Acute PFSH: Medical History Ovarian cyst Surgical History History of cholecystectomy Status post laparoscopic appendectomy Family History (Updated 03/08/22 @ 14:11 by Juliana Schmidt MA) Grandmother Breast cancer Paternal Colon cancer Maternal Grandfather Heart disease Maternal Father Stroke Denies family history of Ovarian cancer Diabetes Hypercholesteremia Hypertension Uterine cancer Thyroid disease Social History (Updated 04/03/22 @ 17:48 by Mendoza Paredes MD) Smoking and tobacco status: former smoker Quit status (tobacco): has quit using tobacco Former quit date comment: Quit on April 17, 2018 -5-pack-year history Alcohol intake: former Substance/Drug Use: never Household members: spouse and children Marital status: Current occupational status: other Details: Homemaker Female Reproductive History: Date of last menstrual period: 05/17/20 Gravi da: 5 Vitals/I&O/Wt Last Vital Signs Temp 97.0 F L 04/03/22 15:15 Pulse 77 04/03/22 16:48 Resp 17 04/03/22 12:26 BP 121/70 04/03/22 16:48 O2 Del Method 04/03/22 14:27 Weight last 48 hrs Weight 188 lb Physical Exam Narrative: General: Alert and oriented x3 Eyes: Pupils equal round and reactive to light and accommodation Mouth: Mucous membranes moist, pharynx non-erythematous Cardiac: Regular rate and rhythm without murmurs Lungs: Clear to auscultation bilaterally without wheezes, crackles or rhonchi Abdomen: Soft, non-tender, fundus consistent with gestational age Extremities: Trace edema in the bilateral lower extremities Data : 04/03/22 12:55 A&P Assessment and plan (1) Supervision of high risk , unspecified, third trimester: The patient is doing well at this time. She was given 1 dose of Cytotec and changed to 4 cm dilation with 50 effacement. We will go ahead and start IV Pitocin. The patient would like to receive a laboring epidural. She may r eceive that at any point now. We will continue to watch patient's blood sugars and start her on IV fluids with D5. All questions answered. Proceed with routine management and close monitoring of the patient's blood sugar. Status: Acute (2) Gestational diabetes: Status: Acute Attestations Medical Necessity Statement*: The patient will be here for greater than 2 midnights due to routine intrapartum and management of labor and delivery. Coding Level of Care Code Acute Elevator Constructor for Suzan Fwelmer Diagnoses Supervision of high risk , unspecified, third trimester O09.93 Gestational diabetes O24.419
[2022-04-03] MEDS: dextrose 5%-lactated ringers 1,000 ML 125 ML IV (17:55)
[2022-04-03] MEDS: oxytocin 30 UNIT/500 ML BAG IV (17:56)
[2022-04-03] MEDS: ondansetron 2 mg/ML SDV 2 mL 4 MG IVP ×2 (18:46→21:45)
[2022-04-03] MEDS: lactated ringers 1,000 ML 999 ML IV ×2 (19:06→20:55)
--- NOTE | 2022-04-03 20:23 | ANES.PREANE2 ---
Pre-Anesthetic Assessment Height/Weight: Height 1.55 m Weight 85.275 kg Temp Pulse Resp BP Pulse Ox O2 Del Method 97.2 F L 75 17 123/67 99 04/03/22 19:07 04/03/22 20:18 04/03/22 12:26 04/03/22 20:18 04/03/22 20:17 04/03/22 14:27 Preop Diagnosis: IUP LALIA Was Beta Noel taken within 24 hours: N/A Was Clonidine taken within 24 hours: N/A Social No alcohol and No tobacco Exam alert, oriented x 3, clear to auscultation bilaterally and regular rate & rhythm Airway Submandibular: within normal limits Cervical ROM: within normal limits Mallampati: Class II Dentition: full History/ROS No significant history except as noted and No significant complaints Pulmonary None reported CV/HEM None reported None reported Hepatic None reported GI Gastroesophageal Reflux Disease Metabolic Gestational diabetic Musc/skel None reported Neuropsych Depression Anesthetic Plan ASA status: 2 Anesthesia: Anesthesia Evaluation and Regional (specify below) Other: LAILA Risk of > 500 ml blood loss (7ml/kg in children): No Medications/Allergies Home Medications Medication Instructions Recorded Confirmed Last Taken Type multivitamin no.51-ferrous 1 cap PO DAILY #60 caps 02/13/21 04/03/22 04/02/22 19:00 Rx fumarate 106.5 mg-folic acid 1 mg capsule (-U) sertraline 25 mg tablet 50 mg PO DAILY 02/03/22 04/03/22 04/02/22 19:00 History aspirin 81 mg tablet,delayed 81 mg PO DAILY 02/07/22 04/03/22 04/03/22 10:00 History release calcium carbonate 80 mg-magnesium 1 tab PO BID 03/19/22 04/03/22 04/03/22 10:00 History carbonate 115 mg tablet (Magnebind 400) insulin glargine 100 unit/mL 10 unit SUBCUT DAILY 03/19/22 04/03/22 04/02/22 19:00 History subcutaneous cartridge Allergies Allergy/AdvReac Type Severity Reaction Status Date / Time No Known Allergies Allergy Verified 03/08/22 14:04 Current Medications Generic Name Dose Route Start Last Admin Trade Name Freq PRN Reason Stop Dose Admin Al Hydrox/Mg Hydrox/Simethicone 30 ml 04/03/22 12:25 04/03/22 18:32 Cygs-Wfu-Siyjfmgar-Crystal 30 Ml Udc PO 30 ml Q4H PRN Administration INDIGESTION Dextrose/Lactated Ringer's 1,000 mls @ 125 mls/hr 04/03/22 12:25 04/03/22 17:55 Dextrose 5%-Lactated Ringers IV 125 mls/hr .Q8H PRN Administration per label comments Oxytocin 30 unit in 500 mls @ 1 mls/hr 04/03/22 17:30 04/03/22 18:30 Pitocin IV 5 milliunit/min .Q24H SAMMY 5 mls/hr Titration Protocol 1 MILLIUNIT/MIN Lactated Ringer's 1,000 mls @ 999 mls/hr 04/03/22 18:25 04/03/22 19:06 Lactated Ringers IV 999 mls/hr .Q1H1M PRN Administration See label comments Misoprostol 25 mcg 04/03/22 12:30 04/03/22 13:04 Misoprostol 100 Mcg Tablet VAGINAL 04/03/22 20:31 25 mcg Q4H SAMMY Administration Ondansetron HCl 4 mg 04/03/22 12:25 04/03/22 18:46 Ondansetron 2 Mg/Ml Sdv 2 Ml IVP 4 mg Q4H PRN Administration NAUSEA AND VOMITING PFSH Anesthesia Medical History Ovarian cyst Surgical History History of cholecystectomy Status post laparoscopic appendectomy Family History (Updated 03/08/22 @ 14:11 by Juliana Schmidt MA) Grandmother Breast cancer Paternal Colon cancer Maternal Grandfather Heart disease Maternal Father Stroke Denies family history of Ovarian cancer Diabetes Hypercholesteremia Hypertension Uterine cancer Thyroid disease Social History (Updated 04/03/22 @ 17:48 by Mendoza Paredes MD) Smoking and tobacco status: former smoker Quit status (tobacco): has quit using tobacco Former quit date comment: Quit on April 17, 2018 -5-pack-year history Alcohol intake: former Substance/Drug Use: never Household members: spouse and children Marital status: Current occupational status: other Details: Homemaker Female Reproductive History Date of last menstrual period: 05/17/20 : 5 Data Anesthesia : 04/03/22 12:55 Short CBC 04/03/22 Range/Units 12:55 WBC 8.1 (4.0-10.0) 10^3/uL Hgb 11.7 (11.5-15.3) g/dL Hct 34.3 L (37.0-47.0) % MCV 82.1 (81-99) fl Plt Count 192 (130-400) 10^3/cmm Neut % (Auto) 65.5 % Neut # (Auto) 5.30 (1.8-7.7) 10^3/uL Cardiac Studies: No Data to Display
--- NOTE | 2022-04-03 20:27 | ANES.PROC ---
Anesthesia Procedures Procedure/Date: 04/03/22 Epidural: Time Out Performed: Yes Consents Signed: Procedure Consent Consent: requested by attending/covering physician, from patient, risks and benefits reviewed and patient agrees to proceed Lumbar Level: L3-L4 Epidural position: sitting Epidural procedure: sterile prep of area, 1% lidocaine to numb the area, 18 g needle, neg for paresthesia, test dose given, 1.5% xylocaine 1:200k epi (5cc), 0.2% Ropivacaine bolus ml (4cc and Fentanyl 100 mcg), no systemic response, sterile dressing applied, L.U.D. no apparent complications and 0.2% Ropiavacaine @ mls/hr (11cc/hour. Pt tolerated well)
[2022-04-03 21:58] LABS: Glucose Point of Care 78 mg/dL (70-110)
[2022-04-03 23:06] LABS: Glucose Point of Care 87 mg/dL (70-110)
[2022-04-04] VITALS (41 sets, daily range): BP systolic 98–131; BP diastolic 54–85; PULSE 65–112; RESP 16–18; TEMP 35.8–36.9; O2SAT 96–100
[2022-04-04 00:01] LABS: Glucose Point of Care 92 mg/dL (70-110)
[2022-04-04 01:05] LABS: Glucose Point of Care 90 mg/dL (70-110)
[2022-04-04] MEDS: hyDROXYzine 25 mg Capsule 50 MG PO (01:19)
[2022-04-04 02:07] LABS: Glucose Point of Care 94 mg/dL (70-110)
[2022-04-04] MEDS: dextrose 5%-lactated ringers 1,000 ML 125 ML IV (03:08)
[2022-04-04 03:40] LABS: Glucose Point of Care 88 mg/dL (70-110)
[2022-04-04] MEDS: ondansetron 2 mg/ML SDV 2 mL 4 MG IVP (03:52)
--- NOTE | 2022-04-04 04:21 | PM.DELIVERY ---
Delivery Note: Date of delivery: April 04, 2022 Pre-delivery diagnoses: 1. Intrauterine at 38.6 weeks gestation 2. Gestational diabetes on Levemir 3. COVID-19 infection September 09, 2021 4. Low progesterone 5. Rubella equivocal 6. Rh- status 7. History of preeclampsia 8. Anxiety on sertraline Post-delivery diagnoses: 1. Intrauterine status post spontaneous vaginal delivery at 38.6 weeks gestation 2. Gestational diabetes on Levemir 3. COVID-19 infection September 09, 2021 4. Low progesterone 5. Rubella equivocal 6. Rh- status 7. History of preeclampsia 8. Anxiety on sertraline 9. Delivery of healthy female weighing 7 pounds 3 ounces (3250g) with Apgars of 8 and 9 Procedure: Spontaneous vaginal delivery Delivering Physician: Mendoza Paredes MD Estimated blood loss (mL): 100 Findings: 1. Healthy female weighing 7 pounds 3 ounces with Apgars of 8 and 9 2. Intact placenta with central umbilical cord insertion site. Pre-Delivery Course: Sharri Alvarado is a 31 year old G5 now P3 status post spontaneous vaginal delivery@ 38.6 weeks by LMP c/w 12 wk US. Preg c/b h/o preeclampsia without severe features, Rh neg (positive previously at the hospital), Anxiety on Sertraline, h/o elevated 1-hr GTT , rubella equivocal, low progesterone, COVID-19 - 09/09/21, gestational DM on Levemir 10 units daily. The patient presented for induction of labor due to gestational diabetes on insulin that has been difficult to control at times.? Her glucose upon admission was improved to 95.? Upon presentation the patient was 11/02/-.? The patient was GBS negative.? The patient was started on Cytotec at approximately 1 PM on 04/03/2022. The patient began to contract well and made cervical change to 3 to 4 cm and 50% effacement after 1 dose. She was then started on IV Pitocin to augment labor. Her contractions gradually increased and she made gradual change. The patient received a laboring epidural. By 3:50 AM, the patient was noted to be complete with a bulging bag of fluid. AROM was performed by myself and a large amount of clear fluid was present. Delivery: The patient began pushing at 3:55 AM on 04/04/2022. Patient pushed well and the infant delivered in the OA position at 4:02 AM on 04/04/2022. The right shoulder was the anterior shoulder and it delivered with ease. There was a nuchal cord that was tight and the was delivered through this. The rest of the infant delivered without complication. The 's mouth and nose were bulb suctioned by myself and the was crying immediately after delivery. The infant was placed on the mother's lap where the nurses were awaiting to care for her. The cord was clamped by myself and cut by the infant's father after approximately 1 minute. Cord blood was then obtained. The cord was then drained of blood and traction was placed on umbilical cord and uterine massage was carried out. History History History 5 Term 3 0 Miscarriages/Ectopic 2 Living Children 3 A&P Assessment and plan (1) Spontaneous vaginal delivery: Status: Acute Coding Level of Care Code Acute J2Ee Software Engineer for Chg Fwd Diagnoses Spontaneous vaginal delivery O80
[2022-04-04] MEDS: acetaminophen 325 mg Tablet 650 MG PO (06:53)
--- NOTE | 2022-04-04 08:43 | PC.NURSE ---
pt up to bathroom without difficulty. large void. kermit care by pt. gown and pad changed. bed linens changed.
--- NOTE | 2022-04-04 15:05 | P.ANESASSM_ITS ---
Pre-Anesthetic Assessment Height/Weight: Height 1.55 m Weight 85.275 kg Temp Pulse Resp BP Pulse Ox O2 Del Method 97.0 F L 69 17 124/74 98 04/04/22 10:13 04/04/22 12:14 04/04/22 12:26 04/04/22 12:14 04/03/22 21:37 04/03/22 14:27 Preop Diagnosis: IUP Operation Date: 04/04/22 13:00 Proposed Procedures p Post Bilateral Tubal Ligation(Bilateral) - Cathy Milner MD Familial anesthetic complications: None Was Beta Noel taken within 24 hours: N/A Was Clonidine taken within 24 hours: N/A Social No alcohol and No tobacco Exam alert, oriented x 3, clear to auscultation bilaterally and regular rate & rhythm Airway Submandibular: within normal limits Cervical ROM: within normal limits Mallampati: Class III Dentition: full (Some missing) History/ROS No significant history except as noted and No significant complaints Pulmonary None reported CV/HEM None reported None reported Hepatic None reported GI None reported Metabolic None reported Musc/skel None reported Neuropsych None reported Anesthetic Plan ASA status: 2 Anesthesia: Anesthesia Evaluation, General and Regional (specify below) (Spinal) Risk of > 500 ml blood loss (7ml/kg in children): No Medications/Allergies Home Medications Medication Instructions Recorded Confirmed Last Taken Type multivitamin no.51-ferrous 1 cap PO DAILY #60 caps 02/13/21 04/03/22 04/02/22 19:00 Rx fumarate 106.5 mg-folic acid 1 mg capsule (-U) sertraline 25 mg tablet 50 mg PO DAILY 02/03/22 04/03/22 04/02/22 19:00 History aspirin 81 mg tablet,delayed 81 mg PO DAILY 02/07/22 04/03/22 04/03/22 10:00 History release calcium carbonate 80 mg-magnesium 1 tab PO BID 03/19/22 04/03/22 04/03/22 10:00 History carbonate 115 mg tablet (Magnebind 400) insulin glargine 100 unit/mL 10 unit SUBCUT DAILY 03/19/22 04/03/22 04/02/22 19:00 History subcutaneous cartridge Allergies Allergy/AdvReac Type Severity Reaction Status Date / Time No Known Allergies Allergy Verified 03/08/22 14:04 Current Medications Generic Name Dose Route Start Last Admin Trade Name Freq PRN Reason Stop Dose Admin Acetaminophen 650 mg 04/03/22 12:25 04/04/22 06:53 Acetaminophen 325 Mg Tablet PO 650 mg Q6H PRN Administration MILD TO MODERATE PAIN Al Hydrox/Mg Hydrox/Simethicone 30 ml 04/03/22 12:25 04/03/22 18:32 Qbej-Kqi-Vzonmuzee-Crystal 30 Ml Udc PO 30 ml Q4H PRN Administration INDIGESTION Docusate Sodium 100 mg 04/04/22 09:00 04/04/22 12:25 Docusate Sodium 100 Mg Capsule PO Not Given BID SAMMY Hydroxyzine Pamoate 50 mg 04/03/22 17:22 04/04/22 01:19 Hydroxyzine 25 Mg Capsule PO 50 mg QID PRN Administration sleep, agitation or itching Dextrose/Lactated Ringer's 1,000 mls @ 125 mls/hr 04/03/22 12:25 04/04/22 06:58 Dextrose 5%-Lactated Ringers IV Infused .Q8H PRN Infusion per label comments Oxytocin 30 unit in 500 mls @ 1 mls/hr 04/03/22 17:30 04/04/22 06:57 Pitocin IV Infused .Q24H SAMMY Titration Protocol 1 MILLIUNIT/MIN Lactated Ringer's 1,000 mls @ 999 mls/hr 04/03/22 17:22 04/03/22 22:00 Lactated Ringers IV Infused .Q1H1M PRN Infusion Per L&D Rescitation Protocol Ropivacaine 200 mg in 100 mls @ 13 mls/hr 04/03/22 18:30 04/04/22 12:26 Naropin Premix EPIDURAL Not Given .Q7H42M [facility] Lactated Ringer's 1,000 mls @ 999 mls/hr 04/03/22 18:25 04/03/22 20:07 Lactated Ringers IV Infused .Q1H1M PRN Infusion See label comments Ibuprofen 800 mg 04/04/22 09:00 04/04/22 12:25 Ibuprofen 800 Mg Tablet PO Not Given TID [facility] Ondansetron HCl 4 mg 04/03/22 12:25 04/04/22 03:52 Ondansetron 2 Mg/Ml Sdv 2 Ml IVP 4 mg Q4H PRN Administration NAUSEA AND VOMITING Multivit/Folic Acid/Iron 1 cap 04/04/22 09:00 04/04/22 12:26 Vitamin Capsule PO Not Given DAILY SAMMY PFSH Anesthesia Medical History Ovarian cyst Surgical History History of cholecystectomy Status post laparoscopic appendectomy Family History (Updated 03/08/22 @ 14:11 by Juliana Schmidt MA) Grandmother Breast cancer Paternal Colon cancer Maternal Grandfather Heart disease Maternal Father Stroke Denies family history of Ovarian cancer Diabetes Hypercholesteremia Hypertension Uterine cancer Thyroid disease Social History (Updated 04/03/22 @ 17:48 by Mendoza Paredes MD) Smoking and tobacco status: former smoker Quit status (tobacco): has quit using tobacco Former quit date comment: Quit on April 17, 2018 -5-pack-year history Alcohol intake: former Substance/Drug Use: never Household members: spouse and children Marital status: Current occupational status: other Details: Homemaker Female Reproductive History Date of last menstrual period: 05/17/20 : 5 Data Anesthesia : 04/03/22 12:55 Short CBC 04/03/22 Range/Units 12:55 WBC 8.1 (4.0-10.0) 10^3/uL Hgb 11.7 (11.5-15.3) g/dL Hct 34.3 L (37.0-47.0) % MCV 82.1 (81-99) fl Plt Count 192 (130-400) 10^3/cmm Neut % (Auto) 65.5 % Neut # (Auto) 5.30 (1.8-7.7) 10^3/uL Cardiac Studies: No Data to Display
[2022-04-04] MEDS: lactated ringers 1,000 ML 999 ML IV (15:19)
--- NOTE | 2022-04-04 15:27 | W.PM.OPSUD ---
Surgery/Procedure H&P Update DATE OF PROCEDURE: April 04, 2022 DATE H&P PERFORMED: 03/08/22 H&P UPDATE INFORMATION: I have reviewed H&P completed within last 30 days, I have examined patient prior to procedure and No changes to prior documentation PREOP DIAGNOSIS: IUP PLANNED PROCEDURE: Operation Date: 04/04/22 13:00 Proposed Procedures p Post Bilateral Tubal Ligation(Bilateral) - Cathy Milner MD
[2022-04-04] MEDS: famotidine 20 mg/2 mL INJ IVP (15:30)
[2022-04-04] MEDS: citric acid-sodium citrate 30 mL UDC PO (15:30)
[2022-04-04] MEDS: metoclopramide 5 mg/mL SDV 2 mL 10 MG IVP (15:30)
--- NOTE | 2022-04-04 15:35 | PC.NURSE ---
pt ambulated to OR for tubal ligation
--- NOTE | 2022-04-04 16:49 | P.OP_ITS ---
Operative Report Date of procedure: April 04, 2022 Pre-op diagnosis: Preop Diagnosis desires sterilization Post-op diagnosis: same Post-op findings: normal appearing uterus and fallopian tubes Procedure done: bilateral partial salpingectomy Specimens removed/disposition: bilateral segments of fallopian tubes to pathology Surgeon: Cathy Milner Anesthesia: General Estimated blood loss (mL): 5 IV fluids (mL): 500 Complications: none Condition: stable Disposition: floor Brief History: The patient saw me in early March as a consult for sterilization. She delivered early this morning and desired to proceed with sterilization today Procedure: The patient was taken to the operating room where general anesthesia was administered and found to be adequate. She was prepped and draped in the usual fashion in the dorsal supine position. An infraumbilical incision was made and carried down to the underlying layer of fascia. The fascia was nicked in the midline and the peritoneum entered sharply with the Metzenbaum scissors. The the patient was tilted to the right and the fallopian tube identified. The fallopian tube was grasped with a [place] clamp and the clamp was walked down the tube to the fimbria. An area mid tube was grasped and elevated and a window was made in the mesosalpinx. The fallopian tube was doubly ligated and then a segment of the tube was removed with the Metzenbaum scissors. There was excellent hemostasis. The fallopian tube was returned to the abdomen. The patient was then tilted to the left and using the same procedure the fallopian tube was grasped and elevated. The Azar clamps were walked down to the fimbria. A segment in the mid tube was elevated and a window made in the mesosalpinx. The fallopian tube was doubly ligated and a section removed with the Metzenbaum scissors. The fallopian tube was returned to the abdomen. There was excellent hemostasis. The fascia was closed with 0 Vicryl. The skin was closed with 3-0 Vicryl. The patient tolerated the procedure well. Sponge lap and needle counts were correct x3. She was taken to the recovery room in stable condition.
[2022-04-04] MEDS: docusate sodium 100 mg Capsule PO (17:36)
[2022-04-04] MEDS: ibuprofen 800 mg tablet PO ×2 (17:36→20:51)
--- NOTE | 2022-04-04 17:49 | PC.NURSE ---
back to OB9 via bed. oriented to room/call light. instructed not to get out of bed without assistance the first couple of times. ice water and sprite given.
--- NOTE | 2022-04-04 18:41 | ANE.PACU2 ---
Inpatient post-anesthesia follow up: Airway intact: Yes Vital signs: Temperature 97.8 F Pulse Rate 97 Respiratory Rate 17 Blood Pressure 117/84 Pulse Oximetry 99 Oxygen Delivery Me thod Room Air Oxygen Flow Rate Fraction of Inspir ed Oxygen Hydration adequate: Yes Nausea and vomiting: No Pain level: 1 Mental status: Baseline
[2022-04-04 19:52] LABS: Hemoglobin 11.4 g/dL (11.5-15.3); Mean Corpuscular HGB Conc 32.6 g/dL (30.0-36.0); Mean Corpuscular Hemoglobin 27.3 pg (28.0-34.0); Mean Corpuscular Volume 83.9 fl (81-99); Platelet Count 177 10^3/cmm (130-400); Red Blood Count 4.17 10^6/uL (4.1-5.3); Red Cell Distribution Width 14.7 % (12.1-15.1); White Blood Count 8.5 10^3/uL (4.0-10.0)
[2022-04-05 04:15] VITALS: BP 106/60; PULSE 68; TEMP 36.7; O2SAT 96
[2022-04-05] MEDS: HYDROcodone-acetaminophen 5-325 mg Tablet PO (04:22)
--- NOTE | 2022-04-05 08:27 | PM.DCS ---
Discharge Providers Date of Admission: 04/03/22 11:56 Date of Discharge: April 05, 2022 Attending Provider at Admission: Mendoza Paredes MD Attending Provider at Discharge: Mendoza Paredes MD Primary Care Provider: Mendoza Paredes MD Diagnoses at Discharge Discharge Diagnosis (1) Spontaneous vaginal delivery: Status: Acute Other Information Additional DC diagnoses/information: 1.? Intrauterine status post spontaneous vaginal delivery at 38.6 weeks gestation 2.? Gestational diabetes on Levemir 3.? COVID-19 infection September 09, 2021 4.? Low progesterone 5.? Rubella equivocal 6.? Rh- status 7.? History of preeclampsia 8.? Anxiety on sertraline 9.? Delivery of healthy female weighing 7 pounds 3 ounces (3250g) with Apgars of 8 and 9 10. Status post bilateral tubal ligation Sharri Alvarado is a 31 year old G5 now P3 status post spontaneous vaginal delivery@ 38.6 weeks by LMP c/w 12 wk US. Preg c/b h/o preeclampsia without severe features, Rh neg (positive previously at the hospital), Anxiety on Sertraline, h/o elevated 1-hr GTT , rubella equivocal, low progesterone, COVID-19 - 09/09/21, gestational DM on Levemir 10 units daily. Reason for Visit Reason for Visit: Induction Brief History: The patient presented for induction of labor due to gestational diabetes on insulin that has been difficult to control at times.? Her glucose upon admission was improved to 95.? Upon presentation the patient was 3/-3/firm.? The patient was GBS negative.? The patient was started on Cytotec at approximately 1 PM on 04/03/2022.? The patient began to contract well and made cervical change to 3 to 4 cm and 50% effacement after 1 dose.? She was then started on IV Pitocin to augment labor.? Her contractions gradually increased and she made gradual change.? The patient received a laboring epidural.? By 3:50 AM, the patient was noted to be complete with a bulging bag of fluid.? AROM was performed by myself and a large amount of clear fluid was present. The patient began pushing at 3:55 AM on 04/04/2022.?The patient pushed well and the delivered in the OA position at 4:02 AM on 04/04/2022.? The patient had an uncomplicated delivery and course. The patient had a bilateral tubal ligation done by Dr. Milner and the patient is doing very well at this time. The patient is ambulating, voiding, passing gas and tolerating food by mouth. Her pain is well controlled. Her bleeding is decreasing well. She request to be discharged home today if possible. Routine discharge instructions were discussed and the patient's questions were answered. Physical Exam Narrative: General: Alert and oriented x3 Cardiac: Regular rate and rhythm without murmurs Lungs: Clear to auscultation bilaterally without wheezes, crackles or rhonchi Abdomen: Soft, mild tenderness over uterus. The uterus is firm and 2 cm below the umbilicus. Incision from tubal is bandaged and there is no bleeding in the surrounding area. Extremities: Trace edema in the bilateral lower extremities Urinary Catheter Management: Marie Latex: Cath Placed During This Visit: yes, but has since been removed by the nurse Reason for Continuing Indwelling Catheter: Decision to DC Catheter Urinary Catheter Date of Insertion: 04/03/22 Urinary Catheter Time of Insertion: 20:40 Date Urinary Catheter Removed: 04/04/22 Time Urinary Catheter Discontinued: 03:52 Discharge Data Studies Completed and Pending Pending at discharge Category Date Time Status Pathology: Surgical [PTH] Routine Pth 04/04/22 17:11 Ordered Laboratory Results WBC 8.5 10^3/uL (4.0-10.0) 04/04/22 19:40 RBC 4.17 10^6/uL (4.1-5.3) 04/04/22 19:40 Hgb 11.4 g/dL (11.5-15.3) L 04/04/22 19:40 Hct 35.0 % (37.0-47.0) L 04/04/22 19:40 MCV 83.9 fl (81-99) 04/04/22 19:40 MCH 27.3 pg (28.0-34.0) L 04/04/22 19:40 MCHC 32.6 g/dL (30.0-36.0) 04/04/22 19:40 RDW 14.7 % (12.1-15.1) 04/04/22 19:40 Plt Count 177 10^3/cmm (130-400) 04/04/22 19:40 MPV 11.0 fL (7.4-10.4) H 04/04/22 19:40 Neut % (Auto) 65.5 % 04/03/22 12:55 Lymph % (Auto) 25.5 % 04/03/22 12:55 Nolan % (Auto) 6.0 % 04/03/22 12:55 Eos % (Auto) 2.3 % 04/03/22 12:55 Baso % (Auto) 0.1 % 04/03/22 12:55 Neut # (Auto) 5.30 10^3/uL (1.8-7.7) 04/03/22 12:55 Lymph # (Auto) 2.1 10^3/uL (0.8-4.8) 04/03/22 12:55 Nolan # (Auto) 0.5 10^3/uL (0.2-0.9) 04/03/22 12:55 Eos # (Auto) 0.2 10^3/uL (0.0-0.8) 04/03/22 12:55 Baso # (Auto) 0.0 10^3/uL (0.0-0.1) 04/03/22 12:55 Nucleated RBC % (auto) 0 % 04/03/22 12:55 Nucleated RBCs # 0.0 /100WBC 04/03/22 12:55 POC Glucose 88 mg/dL (70-110) 04/04/22 03:10 Vitals Last Vital Signs Temp 98.1 F 04/05/22 04:15 Pulse 68 04/05/22 04:15 Resp 17 04/04/22 22:20 BP 106/60 04/05/22 04:15 Pulse Ox 96 04/05/22 04:15 O2 Del Method 04/05/22 04:15 Discharge Plan Discharge Patient Disposition: Home Condition: Good Prescriptions: New hydrocodone-acetaminophen 5-325 mg Tablet 1 tab PO Q6H PRN (Reason: Moderate To Severe Pain) Qty: 10 0RF ibuprofen 800 mg Tablet 800 mg PO TID Qty: 60 0RF ferrous sulfate 325 mg (65 mg iron) tablet 325 mg PO BID Qty: 30 0RF Continued sertraline 25 mg tablet 50 mg PO DAILY -U 106.5-1 mg Capsule 1 cap PO DAILY Qty: 60 1RF Discontinued aspirin 81 mg tablet,delayed release (DR/EC) 81 mg PO DAILY insulin glargine 100 unit/mL Cartridge 10 unit SUBCUT DAILY Magnebind 400 80-115 mg Tablet 1 tab PO BID Discharge Orders: Discharge Order (Routine); Ordered 04/05/22 Ordered By: Mendoza Paredes Referrals: Mendoza Paredes MD [Primary Care Provider] - 6 Weeks (Follow up at 6 weeks Please also schedule appt for same day as infant for incision check (about 2 days from now)) Discharge Diet: Advance as tolerated Discharge Activity: Limit activity as instructed Patient Instructions: Depression (DC), Bleeding (DC), Preeclampsia and Eclampsia After Delivery (GEN), Tubal Ligation (DC), Hemorrhage (DC), OB Discharge Report, OB Food/Drug Interaction Guide, OB Care at Home, Opioid Safety, OB Home Care, OB [facility], OB Vaginal Deliveries Activity Restrictions/Additional Instructions: Do not lift anything heavier than your infant in the car seat for the first 3 weeks, then gradually increase. Nothing per vagina for 6 weeks. I would recommend showers instead of baths to decrease risk for infection for the first 6 weeks. Discharge Attestations Time Spent in Discharge Care*: less than 30 min Quality Metrics Clinical Quality Measures [ No reported AMI, CVA or VTE this stay] Coding Level of Care Code Acute Chg FW DC note Diagnoses Spontaneous vaginal delivery O80
[2022-04-05 10:46] VITALS: BP 127/79; PULSE 77; TEMP 36.8; O2SAT 98
[2022-04-05] MEDS: ibuprofen 800 mg tablet PO (11:04)
[2022-04-05] MEDS: prenatal vitamin Capsule 1 CAP PO (11:04)
[2022-04-05] MEDS: docusate sodium 100 mg Capsule PO (11:04)
[2022-04-05] MEDS: measles,mumps,rubella pf Vial (w/diluent) 0.5 ML SUBCUT (11:06)
[2022-04-05 11:34] VITALS: BP 127/79; PULSE 77; TEMP 36.8; O2SAT 98
== END 2022-04-05 11:45 | disposition home or self-care (01) | DRG 798 ==
LOC: OPOB 11:56 → OBGYN 11:56
PROVIDERS: Obstetrics & Gynecology; Admitting Provider Family Medicine; Family Provider Family Medicine; PCP Family Medicine; Visit Provider Family Medicine
PROC: (CPT 58605; principal; 2022-04-04 13:00)
DX: O24.424 Gestational diabetes mellitus in childbirth, insulin controlled (principal); Z37.0 Single live birth; O99.344 Other mental disorders complicating childbirth; F41.9 Anxiety disorder, unspecified; O26.893 Other specified pregnancy related conditions, third trimester; R89.1 Abnormal level of hormones in specimens from other organs, systems and tissues; O69.81X0 Labor and delivery complicated by cord around neck, without compression, not applicable or unspecified; Z3A.38 38 weeks gestation of pregnancy; Z86.16 Personal history of COVID-19; Z87.59 Personal history of other complications of pregnancy, childbirth and the puerperium; Z30.2 Encounter for sterilization; Z79.82 Long term (current) use of aspirin; Z87.891 Personal history of nicotine dependence
CPT/HCPCS: 36415; 36416; 51702; 58605; 59409; 82962; 85025; 85027; 88302; 90707; 96372; J0330; J1100; J2405; J2704; J2765; J2795; J3010; J3490

== ENCOUNTER → 2023-04-10 14:16 | Outpatient (BNVA) | payer BC, MEDICAID, SELFPAY | PROVIDERS: Family Provider Family Medicine; PCP Family Medicine; Visit Provider Clinical Nurse Specialist Adult Health | DX: R63.5 Abnormal weight gain (principal); Z86.32 Personal history of gestational diabetes | CPT/HCPCS: 80048; 83036; 84436; 84439; 84443; 84480; 84481 ==

== ENCOUNTER 2023-07-08 13:50 | Inpatient (IN) | payer BC, SELFPAY ==
[2023-07-08] VITALS (8 sets, daily range): BP systolic 112–134; BP diastolic 77–82; PULSE 99–114; RESP 16–17; TEMP 36.5–37.1; O2SAT 97–100; BMI 39.4
--- NOTE | 2023-07-08 14:28 | CTR_ITS ---
PROCEDURE INFORMATION: Exam: CT Maxillofacial With Contrast Exam date and time: 07/08/2023 2:45 PM Age: 32 years old Clinical indication: Eye pain and face pain; Right; Additional info: Orbital cellulitis TECHNIQUE: Imaging protocol: Computed tomography of the face with contrast. Radiation optimization: All CT scans at this facility use at least one of these dose optimization techniques: automated exposure control; mA and/or kV adjustment per patient size (includes targeted exams where dose is matched to clinical indication); or iterative reconstruction. Contrast material: OMNI 350; Contrast volume: 80 ml; Contrast route: INTRAVENOUS (IV); REPORTING DATA: Count of CT and Cardiac NM exams in prior 12 months: This patient has received 0 known CTs and 0 known cardiac nuclear medicine studies in the 12 months prior to the current study. COMPARISON: No relevant prior studies available. RADIATION DOSE METRICS: Total DLP (mGy-cm): 629.78 FINDINGS: Orbital cavities: Asymmetric thickening/enhancement of the right orbit. Bones/joints: No acute findings. Paranasal sinuses: No air-fluid levels. Soft tissues: Orbital/periorbital inflammatory changes. No preseptal inflammation or loculated collection. CT/CT facial bones w con [id number] IMPRESSION: Orbital/periorbital cellulitis without preseptal inflammation or collection.
--- NOTE | 2023-07-08 14:30 | W.ED.EYEPROB ---
HPI - Eye Problem General: Chief complaint: Eye Problems Stated complaint: head pains,nausea Time Seen by Provider: 07/08/23 14:13 Source: patient and family Mode of arrival: ambulatory Limitations: no limitations History of Present Illness: This patient was referred to the emergency department from urgent care clinic. Patient's history is that she developed some drainage discharge and redness to her right eye approximately on Sunday. She was seen in outpatient clinic and started on Augmentin as well as a antibiotic eyedrop. She states the symptoms continued and did not improve. She eventually made her way to the urgent care clinic today. She apparently has had body aches fevers facial pain and eye movement pain that has progressed since Sunday. She has not had any other constitutional symptoms that would include sore throat cough dysuria or other potential sources of body aches and fever. She states her 4 school-aged children at home are well without any upper respiratory symptoms or other symptoms. She does not wear eyeglasses or contacts. She does not have a history of foreign body. She denies any other significant past medical history. chief complaint: eye pain and eye redness Duration: progressively worsening Location: right eye Eye Symptoms: redness, pain and discharge Associated symptoms: Reports fever(s), headache(s) and neck pain; Denies nausea or vomiting Related Data: Patient tetanus UTD: Yes Review of Systems Const: Reports: fever(s), chills and body aches Eyes: Reports: change in vision, blurry vision, photophobia and eye discomfort ENMT: Denies: throat pain, odynophagia, nasal discharge, nasal congestion or nasal obstruction Card: Denies: palpitations Resp: Denies: dyspnea, productive cough or non-productive cough GI: Denies: abdominal pain, nausea, vomiting or diarrhea : Denies: flank pain, difficulty voiding, dysuria or urinary frequency Musc: Reports: neck pain; Denies: back pain, extremity pain or extremity swelling Skin/Breast: Denies: rash Neuro: Reports: headache(s); Denies: numbness in extremities or weakness in extremities [facility] PFSH: Medical History Ovarian cyst Surgical History History of tubal ligation Status post laparoscopic appendectomy History of cholecystectomy Family History Grandmother Breast cancer Paternal Colon cancer Maternal Grandfather Heart disease Maternal Father Stroke Denies family history of Ovarian cancer Diabetes Hypercholesteremia Hypertension Uterine cancer Thyroid disease Social History Smoking and tobacco/nicotine status: former use of tobacco/nicotine Quit status (tobacco/nicotine): has quit using Former quit date comment: Quit on April 17, 2018 -5-pack-year history Alcohol intake: former Substance/Drug Use: never Household members: spouse and children Marital status: Current occupational status: other Details: Homemaker Female Reproductive History: Date of last menstrual period: 06/06/23 Physical Exam Narrative: EXAM NARRATIVE: Patient appears to be uncomfortable but responds to questions in a goal-directed fluent voice. Const: COMMON NORMALS: patient oriented x3, no limitations and alert GENERAL APPEARANCE: cooperative NUTRITIONAL APPEARANCE: overweight ORIENTATION/CONSCIOUSNESS: Yes awake HENMT: COMMON NORMALS: normocephalic, TM's normal bilaterally, Normal nasal mucous membranes and turbinates present, moist oral mucous membranes and oropharynx normal HEAD & SCALP: normocephalic NOSE: Normal nasal mucous membranes and turbinates present TYMPANIC MEMBRANE: TM's normal bilaterally Eye: COMMON NORMALS: Equal, round and reactive pupils present CONJUNCTIVA: Yes conjunctival abnormal positive right CORNEA: Yes corneas normal PUPIL: Yes Equal, round and reactive pupils present OTHER: Examination the patient's eyes revealed left eye to be normal in appearance with full extraocular motion without restriction. Pupil is is reactive. Sclera and conjunctiva are clear. Right eye is noted to have injected conjunctiva. The pupil is reactive. She does have clear discharge from that right eye. Extraocular motion is limited and uncomfortable for the patient. Neck/C-Spine: COMMON NORMALS: supple and no meningeal signs GENERAL: Yes lymphadenopathy (Right-sided cervical adenopathy noted) Lymphadenopathy location: anterior cervical and posterior cervical Chest: COMMONS NORMALS: normal inspection of the chest Resp: COMMON NORMALS: normal respiratory effort, No use of accessory muscles and clear to auscultation bilaterally AUSCULTATION: clear to auscultation bilaterally Cardio: COMMON NORMALS: regular rate, regular rhythm, No murmurs present (Cardio) and Peripheral pulses 2+ throughout RATE: regular rate RHYTHM: regular rhythm PERIPHERAL PULSES: Peripheral pulses 2+ throughout GI: COMMON NORMALS: Normal to inspection, nondistended, normoactive bowel sounds present and Soft to palpation PALPATION: Yes Soft to palpation Back/Pelvis: COMMON NORMALS: thoracic and lumbar spine normal to inspection, no thoracic nor lumbar tenderness and thoraco-lumbar ROM normal Extremity: COMMON NORMALS: normal to inspection, full ROM and capillary refill normal Neuro: COMMON NORMALS: patient oriented x3, moves all extremities, no focal motor deficits and no sensory deficits noted SENSORIUM/ORIENTATION: Yes alert MENINGEAL SIGNS: Yes no meningeal signs CRANIAL NERVES: Yes CN normal except as noted Psych: COMMON NORMALS: mental status grossly normal Skin: COMMON NORMALS: no rashes or lesions noted and turgor normal GENERAL SKIN EXAM: no rashes or lesions noted and turgor normal Course Reevaluation(s): Reevaluation #1: I discussed patient's imaging findings which support the diagnosis of orbital cellulitis. We discussed the need for hot IV antibiotics and close monitoring and that ophthalmology will be evaluating her later today. Time: 16:30 Vital Signs: Vital signs: Vital Signs Temperature 97.7 F 07/08/23 13:55 Pulse Rate 110 H 07/08/23 13:55 Respiratory Rate 16 07/08/23 13:55 Blood Pressure 134/82 07/08/23 13:55 Pulse Oximetry 100 07/08/23 13:55 Oxygen Delivery Me thod Room Air 07/08/23 13:55 MDM - Eye Problem Medical Decision Making This patient presented to the emergency department because of increasing right eye pain redness despite oral antibiotic treatment. Her condition initially had begun on Sunday prior to presentation with some redness and drainage from her right eye. She was seen as an outpatient begun on Augmentin but despite this therapy she continued to worsen. She had subjective fevers and chills. She is not on eyeglasses or contact lens wearer and had no other evidence of immune compromised by history or history of similar conditions. Her clinical examination revealed a slightly proptotic right eye with painful extraocular motion with significant injection. She had associated cervical adenopathy. Imaging was obtained which confirmed the suspicion of orbital cellulitis. Ophthalmology was consulted who will evaluate her in the emergency department. Hospitalist was consulted for admission and she was given a loading dose of broad-spectrum antibiotics consisting of Zosyn as well as vancomycin. Lab Data I reviewed the patient's lab results. 07/08/23 14:46 07/08/23 14:[address] 07/08/23 14:28 IMPRESSION: Orbital/periorbital cellulitis without preseptal inflammation or collection. Laboratory Results WBC 9.84 10^3/uL (3.29-11.43) 07/08/23 14:46 RBC 5.00 10^6/uL (3.85-5.65) 07/08/23 14:46 Hgb 13.00 g/dL (11.27-16.99) 07/08/23 14:46 Hct 41.1 % (36-47) 07/08/23 14:46 MCV 82.2 fl (85-98) L 07/08/23 14:46 MCH 26.0 pg (27-33) L 07/08/23 14:46 MCHC 31.6 g/dL (30-55) 07/08/23 14:46 RDW 14.3 % (12.1-15.1) 07/08/23 14:46 Plt Count 242 10^3/cmm (157-399) 07/08/23 14:46 MPV 10.3 fL (7.4-10.4) 07/08/23 14:46 Neut % (Auto) 69.7 % 07/08/23 14:46 Lymph % (Auto) 19.3 % 07/08/23 14:46 [place] % (Auto) 9.1 % 07/08/23 14:46 Eos % (Auto) 1.4 % 07/08/23 14:46 Baso % (Auto) 0.3 % 07/08/23 14:46 Neut # (Auto) 6.85 10^3/uL (1.8-7.7) 07/08/23 14:46 Lymph # (Auto) 1.9 10^3/uL (0.8-4.8) 07/08/23 14:46 [place] # (Auto) 0.9 10^3/uL (0.2-0.9) 07/08/23 14:46 Eos # (Auto) 0.1 10^3/uL (0.0-0.8) 07/08/23 14:46 Baso # (Auto) 0.0 10^3/uL (0.0-0.1) 07/08/23 14:46 Nucleated RBC % (auto) 0 % 07/08/23 14:46 Nucleated RBCs # 0.0 /100WBC 07/08/23 14:46 Sodium 138 mmol/L (136-145) 07/08/23 14:46 Potassium 3.9 mmol/L (3.5-5.1) 07/08/23 14:46 Chloride 103 mmol/L (98-107) 07/08/23 14:46 Carbon Dioxide 22 mmol/L (22-29) 07/08/23 14:46 Anion Gap 16.9 (5-19) 07/08/23 14:46 BUN 10 mg/dL (6-20) 07/08/23 14:46 Creatinine 0.6 mg/dL (0.5-0.9) 07/08/23 14:46 GFR Calculation 116.6 mL/min (90-130) 07/08/23 14:46 Glucose 91 mg/dL (65-115) 07/08/23 14:46 Calculated Osmolality 285 mOsm/kg (285-295) 07/08/23 14:46 Calcium 9.0 mg/dL (8.5-10.5) 07/08/23 14:46 All radiology interpretation(s) finalized by discharge Discharge Plan Discharge Patient Disposition: Admitted As Inpatient Clinical Impression: Orbital cellulitis on right Condition: Stable Prescriptions: No Action No Known Home Medications Referrals: Mendoza Paredes MD [Primary Care Provider] - Coding Level of Care Code ED Forensic Toxicologist for Suzan Fletcher
[2023-07-08 15:00] LABS: Basophils % 0.3 %; Eosinophils # 0.1 10^3/uL (0.0-0.8); Eosinophils % 1.4 %; Hematocrit 41.1 % (36-47); Lymphocytes # 1.9 10^3/uL (0.8-4.8); Lymphocytes % 19.3 %; Mean Corpuscular HGB Conc 31.6 g/dL (30-55); Mean Corpuscular Volume 82.2 fl (85-98); Mean Platelet Volume 10.3 fL (7.4-10.4); Monocytes # 0.9 10^3/uL (0.2-0.9); Monocytes % 9.1 %; Neutrophils # 6.85 10^3/uL (1.8-7.7); Neutrophils % 69.7 %; Nucleated Red Blood Cells % 0 %; Platelet Count 242 10^3/cmm (157-399); Red Cell Distribution Width 14.3 % (12.1-15.1); White Blood Count 9.84 10^3/uL (3.29-11.43)
[2023-07-08] MEDS: sodium chloride 0.9% 1,000 ML 150 ML IV ×2 (15:14→20:43)
[2023-07-08 15:17] LABS: Anion Gap 16.9 (5-19); Blood Urea Nitrogen 10 mg/dL (6-20); Carbon Dioxide 22 mmol/L (22-29); Chloride 103 mmol/L (98-107); Glomerular Filtration Rate 116.6 mL/min (90-130); Glucose 91 mg/dL (65-115); Osmolality Calculated 285 mOsm/kg (285-295); Potassium 3.9 mmol/L (3.5-5.1); Sodium 138 mmol/L (136-145)
[2023-07-08] MEDS: ketorolac 30 mg/mL INJ 15 MG IVP (15:37)
[2023-07-08] MEDS: cefTRIAXone 2,000 MG in sodium chloride 0.9% (plus) 50 ML 100 MG IV (16:25)
--- NOTE | 2023-07-08 17:02 | P.HP_ITS ---
Providers/Chief Complaint 2 Primary Care Provider: Mendoza Paredes MD Chief Complaint: head pains,nausea History of Present Illness Sharri Rey is a 32 year old female With past medical history of gestational diabetes, morbid obesity presents to the ER today because of swelling and pain in the right eye which has been getting worse since last Sunday. Patient states she woke up on Sunday morning with her eyes matted, swollen shut. She went to her primary care provider who gave her Augmentin and neomycin eyedrops. Asked her eyes were not improving and pain was getting worse last night so she came to the ER today. Complains of pain in the eyeball and around it on movement of the eye. Denies of having any similar eye infections in the past. Denies of using any contacts or any new eye products. Denies of having any significant infection in the past. Review of Systems 2 General: Reports: 10 or more systems reviewed and unremarkable except in HPI and below Const: Denies: fever(s), chills, body aches, change in appetite, change in weight, malaise, night sweats, diaphoresis, change in sleep pattern, daytime sleepiness or snoring Eyes: Denies: change in vision, blurry vision, photophobia, eye discomfort or eye discharge ENMT: Denies: throat pain, enlarged tonsils, hoarseness, mouth pain, oral sores, dry mouth, tinnitus, nasal congestion or post nasal drip Card: Denies: chest pain, palpitations, irregular heart rhythm, edema, swelling of feet/ankles, lightheadedness, syncope, pre-syncope, dyspnea on exertion, orthopnea, leg pain with exertion or acrocyanosis Resp: Denies: dyspnea, productive cough, non-productive cough, wheezing, stridor, pain on inspiration, change in phlegm color, hemoptysis or chest congestion GI: Denies: abdominal pain, nausea, vomiting, hematemesis, coffee ground emesis, dysphagia, heartburn, diarrhea, constipation, bloating, GI cramping, change in bowel habits, pain on defecation, hematochezia or melena : Denies: flank pain, dysuria, urinary frequency, urinary urgency, urinary hesitancy, nocturia or hematuria Musc: Denies: neck pain, back pain, extremity pain, joint pain, joint swelling, joint redness, joint stiffness or limited range of motion Neuro: Denies: headache(s), numbness in extremities, weakness in extremities, sensory changes, lack of coordination, difficulty walking, frequent falls, dizziness, vertigo, confusion, Slurred speech present, difficulty communicating thoughts or seizure-like activity Psych: Denies: anxiety, depression, mood swings, panic attacks, hopelessness or irritability Endo: Denies: polyuria, polydipsia, tired all the time, cold intolerance, excessive sweating, flushing or heat intolerance Matthew/Lymph: Denies: easy bruising or easy bleeding All/Imm: Denies: tongue swelling, facial swelling or acute wheezing Medications/Allergies Home Medications Medication Instructions Recorded Confirmed Last Taken Type amoxicillin 875 mg-potassium 1 tab PO BID 07/08/23 07/08/23 07/08/23 History clavulanate 125 mg tablet [id number] 3.5 1 drp ophthalmic (eye) Q6H 07/08/23 07/08/23 07/08/23 History mg/mL-10,000 unit/mL-0.1% eye drops Allergies Allergy/AdvReac Type Severity Reaction Status Date / Time No Known Allergies Allergy Verified 07/08/23 13:15 PFSH Acute 2 PFSH: Medical History (Updated 07/08/23 @ 17:40 by Koby Cano MD) Hx of gestational diabetes mellitus, not currently Ovarian cyst Surgical History History of tubal ligation Status post laparoscopic appendectomy History of cholecystectomy Family History Grandmother Breast cancer Paternal Colon cancer Maternal Grandfather Heart disease Maternal Father Stroke Denies family history of Ovarian cancer Diabetes Hypercholesteremia Hypertension Uterine cancer Thyroid disease Social History Smoking and tobacco/nicotine status: former use of tobacco/nicotine Quit status (tobacco/nicotine): has quit using Former quit date comment: Quit on April 17, 2018 -5-pack-year history Alcohol intake: former Substance/Drug Use: never Household members: spouse and children Marital status: Current occupational status: other Details: Homemaker Female Reproductive History: Date of last menstrual period: 11/01/23 Vitals/I&O/Wt Last Vital Signs Temp 97.7 F 07/08/23 13:55 Pulse 110 H 07/08/23 13:55 Resp 16 07/08/23 13:55 BP 134/82 07/08/23 13:55 Pulse Ox 100 07/08/23 13:55 O2 Del Method Room Air 07/08/23 13:55 Weight last 48 hrs Weight 94.801 kg Physical Exam 2 Narrative: General: No acute distress, AO x3 HEENT: PERRLA, pupils bilaterally equal and reactive Chest: Normal vesicular breath sounds, no added sounds, equal good air entry bilaterally CVS: S1-S2 regular, no murmurs, no tachycardia, no gallops, no rubs Abdomen: Soft, nontender, no organomegaly, bowel sounds present Neuro: No focal deficits, no facial deformity, AO x3, power 5/5 in all limbs Right eye swollen, matted, injected, tender. Data 07/08/23 14:46 07/08/23 14:46 A&P Assessment and plan (1) Orbital cellulitis on right: Ophthalmology has been consulted from the ER. Will follow recommendations. Appreciate CT head and face. No concerns for sinus and action. Check blood culture. Appreciate recent A1c. Check vitamin B12, folate levels. Check HIV. For now start on broad-spectrum antibiotics with IV vancomycin and Zosyn. Eyedrops as per ophthalmology. Pain management with [place] 5 mg every 6 hours as needed, morphine 2 mg every 6 hours as needed (2) Failure of outpatient treatment: Attestations 2 Medical Necessity Statement*: Admission for more than 2 midnights for management of orbital cellulitis of right eye Diagnoses Orbital cellulitis on right H05.011 Failure of outpatient treatment Z78.9
[2023-07-08] MEDS: morphine 4 mg/mL SDV 1 mL IVP (17:04)
[2023-07-08] MEDS: ondansetron 2 mg/ML SDV 2 mL 4 MG IVP ×2 (17:05→23:13)
[2023-07-08] MEDS: piperacillin-tazobactam 3.375 GM in sodium chloride 0.9% (plus) 50 ML IV (17:05)
[2023-07-08 17:43] LABS: Iron 18 ug/dL (37-145); Percent Saturation 5.2 % (20-50); Total Iron Binding Capacity 340 mcg/dl; Unsaturated Iron Binding 322 ug/dL (112-347)
[2023-07-08] MEDS: vancomycin 1,500 MG/300 ML PIGGYBACK 200 MG IV (17:44)
[2023-07-08 19:01] LABS: Procalcitonin 0.06 ng/mL (0-0.5); Vitamin B12 436 pg/mL (232-1245)
[2023-07-08] MEDS: morphine 4 mg/mL SDV 1 mL 2 MG IVP (20:41)
[2023-07-08] MEDS: sodium chloride 0.9% 1,000 ML 75 ML IV (20:43)
[2023-07-08] MEDS: acetaminophen 325 mg Tablet 650 MG PO (23:13)
[2023-07-09] VITALS (10 sets, daily range): BP systolic 104–127; BP diastolic 68–83; PULSE 92–116; RESP 15–18; TEMP 36.6–37.7; O2SAT 96–97
[2023-07-09] MEDS: piperacillin-tazobactam 3.375 GM in sodium chloride 0.9% (plus) 50 ML IV ×3 (00:41→18:15)
[2023-07-09] MEDS: morphine 4 mg/mL SDV 1 mL 2 MG IVP ×4 (00:53→14:31)
[2023-07-09] MEDS: HYDROcodone-acetaminophen 5-325 mg Tablet 1 TAB PO ×2 (03:05→11:56)
[2023-07-09 03:43] LABS: Basophils % 0.1 %; Eosinophils # 0.1 10^3/uL (0.0-0.8); Eosinophils % 1.3 %; Hematocrit 34.8 % (36-47); Lymphocytes # 1.5 10^3/uL (0.8-4.8); Mean Corpuscular HGB Conc 31.6 g/dL (30-55); Mean Corpuscular Hemoglobin 26.2 pg (27-33); Mean Corpuscular Volume 82.9 fl (85-98); Mean Platelet Volume 10.7 fL (7.4-10.4); Monocytes # 0.6 10^3/uL (0.2-0.9); Monocytes % 9.1 %; Neutrophils # 4.43 10^3/uL (1.8-7.7); Neutrophils % 66.2 %; Nucleated Red Blood Cells % 0 %; Platelet Count 213 10^3/cmm (157-399); Red Cell Distribution Width 14.5 % (12.1-15.1)
[2023-07-09 04:02] LABS: Alanine Aminotransferase 206 U/L (0-33); Albumin Level 3.5 g/dL (3.5-5.2); Alkaline Phosphatase 91 U/L (35-105); Anion Gap 15.6 (5-19); Aspartate Amino Transferase 292 U/L (0-32); Blood Urea Nitrogen 10 mg/dL (6-20); Calcium 8.1 mg/dL (8.5-10.5); Carbon Dioxide 19 mmol/L (22-29); Chloride 107 mmol/L (98-107); Globulin 2.9 g/dL (1.3-4.6); Glomerular Filtration Rate 97.6 mL/min (90-130); Glucose 130 mg/dL (65-115); Osmolality Calculated 287 mOsm/kg (285-295); Phosphorus 2.5 mg/dL (2.5-4.5); Potassium 3.6 mmol/L (3.5-5.1); Sodium 138 mmol/L (136-145); Total Bilirubin 0.3 mg/dL (0.15-1.2); Total Protein 6.4 g/dL (6.6-8.7)
[2023-07-09 04:03] LABS: Procalcitonin 0.07 ng/mL (0-0.5)
[2023-07-09 04:05] LABS: Chol HDL Ratio 2.77 mg/dL (0.0-4.40); Cholesterol 122 mg/dL (0-200); HDL Cholesterol 44 mg/dL (60-100); LDL Cholesterol Calculated 65 mg/dL (50-129); LDL HDL Ratio 1.48 RATIO (0.00-3.22); Triglycerides 64 mg/dL (0-150)
[2023-07-09 04:13] LABS: Folate Level 9.1 ng/mL (4.8-37.3)
[2023-07-09] MEDS: vancomycin 1,000 MG in sodium chloride 0.9% 250 ML 250 MG IV ×3 (06:38→22:15)
[2023-07-09] MEDS: ondansetron 2 mg/ML SDV 2 mL 4 MG IVP ×2 (09:44→18:13)
[2023-07-09] MEDS: sodium chloride 0.9% 1,000 ML 75 ML IV ×2 (09:54→23:22)
[2023-07-09] MEDS: pantoprazole DR 40 mg Tablet PO (09:56)
[2023-07-09 12:40] LABS: Add Urine Culture? Yes; Add Urine Microscopic? YES; Bacteria Urine TRACE /hpf; Bilirubin Urine 1+ (Negative); Blood Urine 3+ (Negative); Glucose Urine UA Norm (Normal); Ketones Urine Negative (Negative); Leukocyte Esterase Urine Negative (Negative); Nitrate Urine Negative (Negative); Protein Urine 1+ (Negative); RBC Urine TOO NUMEROUS TO CNT /hpf (0-2); Specific Gravity, Urine 1.015 (1.005-1.030); Squamous Epithelial Cell Urine 0-4 /hpf (0-5); Urine Appearance Bloody (CLEAR); Urine Color Red (Yellow); Urobilinogen Urine Norm (Negative); WBC Urine 0-4 /hpf (0-5); pH Urine 6.5 (5-7)
[2023-07-09] MEDS: neomycin-poly-dex Op 5 mL Btl 1 DROP EYE-BOTH ×2 (14:36→20:21)
--- NOTE | 2023-07-09 15:19 | CTR_ITS ---
PROCEDURE INFORMATION: Exam: CT Neck With Contrast Exam date and time: 07/09/2023 6:49 PM Age: 32 years old Clinical indication: Neck pain; Additional info: Pain, swelling bl neck TECHNIQUE: Imaging protocol: Computed tomography of the neck with contrast. Radiation optimization: All CT scans at this facility use at least one of these dose optimization techniques: automated exposure control; mA and/or kV adjustment per patient size (includes targeted exams where dose is matched to clinical indication); or iterative reconstruction. Contrast material: OMNI 350; Contrast volume: 100 ml; Contrast route: INTRAVENOUS (IV); REPORTING DATA: Count of CT and Cardiac NM exams in prior 12 months: This patient has received [address] and 0 known cardiac nuclear medicine studies in the 12 months prior to the current study. COMPARISON: CT facial bones w con [id number] 07/08/2023 2:45 PM RADIATION DOSE METRICS: Total DLP (mGy-cm): 305 FINDINGS: Pharynx: Tonsils enlarged bilaterally suggestive of tonsillitis, negative for focal fluid collection to indicate an abscess. Larynx: Unremarkable. Epiglottis is normal. Prevertebral and retropharyngeal spaces: Unremarkable. Salivary glands: Normal. Glands are normal in size. Thyroid: Normal. No enlarged or calcified nodules. Lymph nodes: Scattered prominent lymph nodes throughout the neck measuring up to 10 mm short axis in the right posterior cervical chain, nonspecific. Trachea: Visualized trachea is unremarkable. Lungs: Unremarkable as visualized. Bones/joints: Unremarkable. No acute fracture. Soft tissues: Unremarkable. No significant soft tissue swelling. CT/CT neck w con* [id number] IMPRESSION: 1. Tonsils enlarged bilaterally suggestive of tonsillitis, negative for focal fluid collection to indicate an abscess. 2. Scattered prominent lymph nodes throughout the neck measuring up to 10 mm short axis in the right posterior cervical chain, nonspecific.
[2023-07-09] MEDS: morphine 4 mg/mL SDV 1 mL IVP ×2 (18:13→22:14)
[2023-07-09] MEDS: iohexol 350 mg/mL 500 mL Btl (per mL) IV (18:57)
--- NOTE | 2023-07-09 20:08 | P.PN_ITS ---
Subjective 2 Subjective: Continues to have pain in the right eye/orbit. Able to partially open the right eyelid. Some improvement in swelling around the right eye. Pain right submandibular area, right side neck, which is also now bothering left side neck and submandibular area. Vitals/I&O/Wt Last Vital Signs Temp 99.8 F H 07/09/23 16:00 Pulse 96 07/09/23 16:00 Resp 18 07/09/23 18:13 BP 124/81 07/09/23 16:00 Pulse Ox 97 07/09/23 16:00 O2 Del Method Room Air 07/09/23 16:00 07/09/23 07/09/23 07/09/23 06:59 14:59 22:59 Intake Total 1050 / 2512.5 900 / 900 250 / 1150 Balance 1050 / 2512.5 900 / 900 250 / 1150 Weight last 48 hrs Weight 97.704 kg Weight 94.801 kg Weight 94.801 kg Physical Exam 2 Narrative: Accompanied by her . Const: COMMON NORMALS: patient oriented x3 and alert GENERAL APPEARANCE: c ooperative ORIENTATION/CONSCIOUSNESS: Yes awake HENMT: COMMON NORMALS: oropharynx normal OTHER: Moderate amount of swelling of the right eyelid/orbit. Neck/C-Spine: COMMON NORMALS: no JVD OTHER: Tenderness on palpation of the lateral right and left side neck. Resp: COMMON NORMALS: normal respiratory effort and clear to auscultation bilaterally AUSCULTATION: clear to auscultation bilaterally Cardio: COMMON NORMALS: no JVD, regular rhythm, S1 normal heart sound present, S2 normal heart sound present and No murmurs present (Cardio) RHYTHM: regular rhythm HEART SOUNDS: S1 normal heart sound present and S2 normal heart sound present GI: COMMON NORMALS: Normal to inspection, nondistended, normoactive bowel sounds present, Soft to palpation and non-tender PALPATION: Yes Soft to palpation Extremity: COMMON NORMALS: no joint enlargement and no pedal edema Neuro: COMMON NORMALS: patient oriented x3 and moves all extremities S ENSORIUM/ORIENTATION: Yes alert Skin: COMMON NORMALS: no rashes or lesions noted GENERAL SKIN EXAM: no rashes or lesions noted Data 07/09/23 02:38 07/09/23 02:38 Micro: Microbiology 07/08/23 19:48 Blood Culture - Preliminary Blood NEGATIVE TO DATE 07/08/23 19:46 Blood Culture - Preliminary Blood NEGATIVE TO DATE A&P Assessment and plan (1) Orbital cellulitis on right: Some improvement swelling around the right eye. Continue IV antibiotics. She has been having swelling and tenderness of bilateral lateral neck, possibly secondary to lymphadenopathy, discussed with her additional imaging with CT scan. Obtained. Reviewed. Noted bilateral tonsillitis without peritonsillar abscess. Will additionally assess rapid strep, viral panel, monospot. Reviewed HIV, noted pending. Reviewed CBC, noted no cytosis. Vitals low-grade temp only 99.8. Reviewed procalcitonin noted 0.07. Follow-up blood culture. Appreciate recent A1c. Check vitamin B12, folate levels. Check HIV. For now start on broad-spectrum antibiotics with IV vancomycin and Zosyn. Eyedrops as per ophthalmology. Pain management with [place] 5 mg every 6 hours as needed, morphine 2 mg every 6 hours as needed Pain control with IV morphine, required dose adjustment, increased up to 4 mg. Continue to reassess pain control. Discussed with caseworker. (2) Failure of outpatient treatment: (3) Transaminitis: Noted new transaminitis on review of CMP, 292/2 6 AST/ALT. Respiratory viral panel as above. Check hepatitis panel. Follow-up CMP. Plan Microscopic hematuria: Follow-up urine culture. Attestations 2 Medical Necessity Statement*: Continue admission for assessment management of orbital cellulitis, tonsillitis, transaminitis. Diagnoses Orbital cellulitis on right H05.011 Failure of outpatient treatment Z78.9 Transaminitis R74.01
[2023-07-09 21:41] LABS: Hepatitis A Antibody IgM Non-Reactive (Nonreactive); Hepatitis B Core IgM Non-Reactive (Nonreactive); Hepatitis B Surface Antigen Non-Reactive (Nonreactive); Hepatitis C Virus Antibody Non-Reactive (Nonreactive)
[2023-07-09 22:11] LABS: Monoscreen Negative (Negative)
[2023-07-09 22:49] LABS: Rapid Strep A Test Negative (Negative)
[2023-07-10] VITALS (10 sets, daily range): BP systolic 103–131; BP diastolic 67–85; PULSE 76–113; RESP 16–18; TEMP 36.4–37.2; O2SAT 93–97
[2023-07-10] MEDS: piperacillin-tazobactam 3.375 GM in sodium chloride 0.9% (plus) 50 ML IV ×3 (00:35→17:02)
[2023-07-10] MEDS: HYDROcodone-acetaminophen 5-325 mg Tablet 1 TAB PO ×3 (00:35→20:51)
[2023-07-10] MEDS: morphine 4 mg/mL SDV 1 mL IVP ×4 (03:07→18:13)
[2023-07-10] MEDS: ondansetron 2 mg/ML SDV 2 mL 4 MG IVP ×3 (03:07→18:13)
[2023-07-10] MEDS: neomycin-poly-dex Op 5 mL Btl 1 DROP EYE-BOTH ×4 (03:08→20:50)
[2023-07-10 05:13] LABS: Basophils % 0.3 %; Eosinophils # 0.1 10^3/uL (0.0-0.8); Hematocrit 32.2 % (36-47); Lymphocytes # 1.7 10^3/uL (0.8-4.8); Mean Corpuscular Hemoglobin 26.5 pg (27-33); Mean Corpuscular Volume 82.8 fl (85-98); Mean Platelet Volume 10.6 fL (7.4-10.4); Monocytes # 0.5 10^3/uL (0.2-0.9); Monocytes % 6.7 %; Neutrophils # 5.42 10^3/uL (1.8-7.7); Neutrophils % 69.7 %; Nucleated Red Blood Cells % 0 %; Platelet Count 203 10^3/cmm (157-399); Red Blood Count 3.89 10^6/uL (3.85-5.65); Red Cell Distribution Width 14.3 % (12.1-15.1); White Blood Count 7.77 10^3/uL (3.29-11.43)
[2023-07-10 05:36] LABS: Alanine Aminotransferase 171 U/L (0-33); Albumin Level 3.5 g/dL (3.5-5.2); Alkaline Phosphatase 80 U/L (35-105); Anion Gap 14.6 (5-19); Aspartate Amino Transferase 86 U/L (0-32); Blood Urea Nitrogen 4 mg/dL (6-20); Calcium 8.1 mg/dL (8.5-10.5); Carbon Dioxide 22 mmol/L (22-29); Chloride 105 mmol/L (98-107); Globulin 2.9 g/dL (1.3-4.6); Glomerular Filtration Rate 143.9 mL/min (90-130); Glucose 108 mg/dL (65-115); Osmolality Calculated 283 mOsm/kg (285-295); Potassium 3.6 mmol/L (3.5-5.1); Sodium 138 mmol/L (136-145); Total Bilirubin 0.4 mg/dL (0.15-1.2); Total Protein 6.4 g/dL (6.6-8.7)
[2023-07-10] MEDS: vancomycin 1,000 MG in sodium chloride 0.9% 250 ML 250 MG IV ×2 (06:09→13:43)
[2023-07-10] MEDS: pantoprazole DR 40 mg Tablet PO (08:57)
[2023-07-10] MEDS: acetaminophen 325 mg Tablet 650 MG PO (08:57)
--- NOTE | 2023-07-10 10:52 | PC.NURSE ---
Patient c/o severe, uncontrolled pain in head, shoulders, and forehead. Her IV has blown, Tiffanie Franklin LPN at bedside to start new IV to right AC. This RN administered Morphine and Zofran as soon as Tiffanie Franklin completed IV insertion. Tidied room and updated care board with pain medication and Zofran due times. Patient denies further needs, questions, or concerns at this time.
[2023-07-10 11:36] LABS: Amphetamines Screen Urine Negative (Negative); Barbiturates Screen Urine Negative (Negative); Benzodiazepines Screen Urine Negative (Negative); Cocaine Screen Urine Negative (Negative); Opiate Screen Urine Positive (Negative); PCP Screen Urine Negative (Negative); THC Screen Urine Negative (Negative)
--- NOTE | 2023-07-10 11:39 | P.PN_ITS ---
Subjective 2 Subjective: She is having some further improvement today. Pain and swelling with further improvement on her right eye. Vitals/I&O/Wt Last Vital Signs Temp 98.0 F 07/10/23 11:10 Pulse 76 07/10/23 11:10 Resp 17 07/10/23 11:10 BP 117/71 07/10/23 11:10 Pulse Ox 97 07/10/23 11:10 O2 Del Method Room Air 07/10/23 11:10 07/09/23 07/10/23 07/10/23 22:59 06:59 14:59 Intake Total 1540 / 3440 300 / 3740 250 / 250 Balance 1540 / 3440 300 / 3740 250 / 250 Weight last 48 hrs Weight 100.199 kg Weight 97.704 kg Weight 94.801 kg Weight 94.801 kg Physical Exam 2 Narrative: Accompanied by her . Const: COMMON NORMALS: patient oriented x3 and alert GENERAL APPEARANCE: c ooperative ORIENTATION/CONSCIOUSNESS: Yes awake HENMT: COMMON NORMALS: oropharynx normal OTHER: Moderate amount of swelling of the right eyelid/orbit. Neck/C-Spine: COMMON NORMALS: no JVD OTHER: Tenderness on palpation of the lateral right and left side neck. Resp: COMMON NORMALS: normal respiratory effort and clear to auscultation bilaterally AUSCULTATION: clear to auscultation bilaterally Cardio: COMMON NORMALS: no JVD, regular rhythm, S1 normal heart sound present, S2 normal heart sound present and No murmurs present (Cardio) RHYTHM: regular rhythm HEART SOUNDS: S1 normal heart sound present and S2 normal heart sound present GI: COMMON NORMALS: Normal to inspection, nondistended, normoactive bowel sounds present, Soft to palpation and non-tender PALPATION: Yes Soft to palpation Extremity: COMMON NORMALS: no joint enlargement and no pedal edema Neuro: COMMON NORMALS: patient oriented x3 and moves all extremities S ENSORIUM/ORIENTATION: Yes alert Skin: COMMON NORMALS: no rashes or lesions noted GENERAL SKIN EXAM: no rashes or lesions noted Data 07/10/23 04:37 07/10/23 04:37 Micro: Microbiology 07/08/23 19:48 Blood Culture - Preliminary Blood NEGATIVE TO DATE 07/08/23 19:46 Blood Culture - Preliminary Blood NEGATIVE TO DATE A&P Assessment and plan (1) Orbital cellulitis on right: Movement and symptoms, reduction swelling. No pain or eye movement. Denies blurred vision. Some improvement in tenderness and swelling of bilateral lateral neck, but she still operator batch or continuous especially in the back of her neck. We discussed the results of the CT scan with her and her including tonsillitis, lymphadenopathy including posterior chain likely possible for her posterior neck symptoms. Reviewed respiratory viral panel, pending. Reviewed rapid strep, Monospot, noted negative. I do suspect acute viral illness rather than bacterial as discussed with her given some systemic symptoms, he transaminitis, however, for now continue empiric antibiotics due to danger of bacterial orbital cellulitis. She is having some nausea, but otherwise denies vomiting, no diarrhea, no urinary symptoms. She is afebrile, reviewed CBC, noted with a leukocytosis is noted to have some anemia 10.3 though has had this in the past. Platelets WNL. Chemistry reviewed, electrolytes unremarkable, renal function unremarkable. Transaminitis improving, AST down to 86, ALT down to 171. Blood culture reviewed, noted negative. Stop IVF. Appreciate recent A1c. Check vitamin B12, folate levels. HIV pending. For now start on broad-spectrum antibiotics with IV vancomycin and Zosyn. Eyedrops as per ophthalmology. Pain management with [employer] 5 mg every 6 hours as needed, morphine 2 mg every 6 hours as needed Pain control with IV morphine, required dose adjustment, increased up to 4 mg. Continue to reassess pain control. Discussed with case management in rounds. (2) Failure of outpatient treatment: (3) Transaminitis: Noted new transaminitis on review of CMP, 292/2 6 AST/ALT. Respiratory viral panel reviewed, pending. Reviewed and noted unremarkable hepatitis panel. Follow-up CMP reviewed noted with improvement. UDS reviewed, positive for opiates but drawn after already received morphine in the hospital. Plan Microscopic hematuria: Follow-up urine culture. So far pending. Attestations 2 Medical Necessity Statement*: Continue admission for assessment and management of orbital cellulitis, tonsillitis. and High MDM includes amount and/or complexity of data reviewed/ordered [ resulted lab(s)/test(s) and other healthcare professional discussion] as documented Diagnoses Orbital cellulitis on right H05.011 Failure of outpatient treatment Z78.9 Transaminitis R74.01
[2023-07-10 13:47] LABS: Vancomycin Trough 9.2 ug/mL (10-15)
[2023-07-10 20:22] LABS: Chlamydia Pneumoniae Not Detected (NOT DETECT); Coronavirus 229E,HKU1,NL63,OC4 Not Detected (NOT DETECT); Human Metapneumovirus Not Detected (NOT DETECT); Human Rhinovirus/Enterovirus Not Detected (NOT DETECT); Influenza A Not Detected (NOT DETECT); Influenza A H1 Not Detected (NOT DETECT); Influenza A H1-2009 Not Detected (NOT DETECT); Influenza A H3 Not Detected (NOT DETECT); Influenza B Not Detected (NOT DETECT); Mycoplasma Pneumoniae Not Detected (NOT DETECT); Parainfluenza Virus Type 1 Not Detected (NOT DETECT); Parainfluenza Virus Type 2 Not Detected (NOT DETECT); Parainfluenza Virus Type 3 Not Detected (NOT DETECT); Parainfluenza Virus Type 4 Not Detected (NOT DETECT); Respiratory Syncytial Virus A Not Detected (NOT DETECT); Respiratory Syncytial Virus B Not Detected (NOT DETECT); SARS-COV-2 Not Detected (NOT DETECT)
[2023-07-10 20:24] LABS: Adenovirus Detected (NOT DETECT)
[2023-07-10] MEDS: vancomycin 1,250 MG/250 ML PIGGYBACK 250 MG IV (20:50)
[2023-07-11] VITALS: BP 108/66; PULSE 85; RESP 17; TEMP 36.9; O2SAT 95
[2023-07-11] MEDS: piperacillin-tazobactam 3.375 GM in sodium chloride 0.9% (plus) 50 ML IV ×2 (00:42→08:16)
[2023-07-11 01:18] VITALS: RESP 18
[2023-07-11] MEDS: morphine 4 mg/mL SDV 1 mL IVP (01:18)
[2023-07-11] MEDS: neomycin-poly-dex Op 5 mL Btl 1 DROP EYE-BOTH ×2 (03:52→08:29)
[2023-07-11 04:00] VITALS: BP 114/68; PULSE 76; RESP 17; TEMP 36.7; O2SAT 96
[2023-07-11] MEDS: vancomycin 1,250 MG/250 ML PIGGYBACK 250 MG IV (05:28)
[2023-07-11 06:41] LABS: Basophils % 0.3 %; Eosinophils # 0.2 10^3/uL (0.0-0.8); Hematocrit 32.6 % (36-47); Lymphocytes # 2.3 10^3/uL (0.8-4.8); Lymphocytes % 34.4 %; Mean Corpuscular HGB Conc 31.3 g/dL (30-55); Mean Corpuscular Hemoglobin 25.8 pg (27-33); Mean Corpuscular Volume 82.5 fl (85-98); Mean Platelet Volume 10.3 fL (7.4-10.4); Monocytes # 0.6 10^3/uL (0.2-0.9); Monocytes % 8.9 %; Neutrophils # 3.59 10^3/uL (1.8-7.7); Neutrophils % 53.1 %; Nucleated Red Blood Cells % 0 %; Platelet Count 209 10^3/cmm (157-399); Red Blood Count 3.95 10^6/uL (3.85-5.65); Red Cell Distribution Width 13.6 % (12.1-15.1); White Blood Count 6.75 10^3/uL (3.29-11.43)
[2023-07-11 07:05] LABS: Alanine Aminotransferase 112 U/L (0-33); Albumin Level 3.3 g/dL (3.5-5.2); Alkaline Phosphatase 78 U/L (35-105); Anion Gap 17.5 (5-19); Aspartate Amino Transferase 41 U/L (0-32); Blood Urea Nitrogen 6 mg/dL (6-20); Calcium 8.3 mg/dL (8.5-10.5); Carbon Dioxide 20 mmol/L (22-29); Chloride 105 mmol/L (98-107); Creatinine Clr Calc Pharmacy 144.6112; Globulin 3.4 g/dL (1.3-4.6); Glomerular Filtration Rate 116.6 mL/min (90-130); Glucose 92 mg/dL (65-115); Osmolality Calculated 285 mOsm/kg (285-295); Potassium 3.5 mmol/L (3.5-5.1); Sodium 139 mmol/L (136-145); Total Bilirubin 0.4 mg/dL (0.15-1.2); Total Protein 6.7 g/dL (6.6-8.7)
[2023-07-11 08:00] VITALS: BP 152/69; PULSE 83; RESP 16; TEMP 37.1; O2SAT 96
[2023-07-11] MEDS: pantoprazole DR 40 mg Tablet PO (08:18)
[2023-07-11 11:36] VITALS: BP 124/81; PULSE 79; RESP 17; TEMP 36.9; O2SAT 98
--- NOTE | 2023-07-11 13:47 | P.DS_ITS ---
Discharge Providers Date of Admission: 07/08/23 16:26 Date of Discharge: July 11, 2023 Attending Provider at Admission: Xenia Lopez MD Attending Provider at Discharge: Kenan Cuevas Primary Care Provider: Mendoza Paredes MD Diagnoses at Discharge Discharge Diagnosis (1) Orbital cellulitis on right: Status: Acute (2) Failure of outpatient treatment: Status: Acute (3) Transaminitis: Status: Acute Reason for Visit Reason for Visit: head pains,nausea Hospital Course Hospital Course 32-year-old lady was admitted after presenting with pain, swelling of the right eye, pain on movement, blurred vision, eye swelling shot. She additionally had pain on the sides of her neck, submandibular region, nausea. CT of the head on presentation with finding of orbital cellulitis. She was started on empiric antibiotic coverage with Zosyn and vancomycin. Her symptoms started to improve with decreased swelling, improved vision and opening of the right eye, improvement and resolution of pain on eye movement. CT of the neck due to pain swelling and tenderness over the left bilateral lateral neck, submandibular region with finding of tonsillitis, without peritonsillar abscess, scattered prominent lymph nodes throughout the neck up to 10 mm short axis in posterior cervical chain. Rapid strep was obtained all negative, Monospot negative, r espiratory viral panel obtained and returned positive for adenovirus. Noted transaminitis on presentation likely secondary to the above, he is improving/resolving. Please follow-up function. On presentation also with noted microscopic hematuria, urinalysis obtained for additional assessment for possible UTI, without growth on culture. Her symptoms continue to improve, today with significant improvement near resolution of swelling around the right eye, no pain on extraocular movement, resolution of erythema. Mild conjunctivitis of the lateral left eye. Discussed options with consideration of additional monitoring in the hospital versus return home cautiously but return to hospital in case of any worsening or new concerning symptoms with consideration patient has been choosing the latter. She will complete empiric course of antibiotic for consideration of superimposed bacterial orbital cellulitis secondary to viral infection initially with adenovirus, she is asked to follow up for reassessment with opthalmology and ENT. Please follow-up for resolution of symptoms. Reassess CMP for transaminitis for resolution, reassess microscopic hematuria for resolution. Physical Exam Narrative: Accompanied by her . Const: COMMON NORMALS: patient oriented x3 and alert GENERAL APPEARANCE: cooperative ORIENTATION/CONSCIOUSNESS: Yes awake HENMT: COMMON NORMALS: oropharynx normal OTHER: Resolving swelling of the right eyelid/orbit. Good eye opening, EOMI. Neck/C-Spine: COMMON NORMALS: no JVD OTHER: Improving/resolving tenderness on palpation of the lateral right and left side neck. Resp: COMMON NORMALS: normal respiratory effort and clear to auscultation bilaterally AUSCULTATION: clear to auscultation bilaterally Cardio: COMMON NORMALS: no JVD, regular rhythm, S1 normal heart sound present, S2 normal heart sound present and No murmurs present (Cardio) RHYTHM: regular rhythm HEART SOUNDS: S1 normal heart sound present and S2 normal heart sound present GI: COMMON NORMALS: Normal to inspection, nondistended, normoactive bowel sounds present, Soft to palpation and non-tender PALPATION: Yes Soft to palpation Extremity: COMMON NORMALS: no joint enlargement and no pedal edema Neuro: COMMON NORMALS: patient oriented x3 and moves all extremities SENSORIUM/ORIENTATION: Yes alert Skin: COMMON NORMALS: no rashes or lesions noted GENERAL SKIN EXAM: no rashes or lesions noted Discharge Data Studies Completed and Pending Completed Studies During Hospitalization Category Date Time Status CT facial bones w con [id number] Stat Cat Scan 07/08/23 14:[address] neck w con* [id number] Routine Cat Scan 07/09/23 15:19 Completed Pending at discharge Category Date Time Status Blood Culture Stat Lab 07/08/23 19:48 Results Complete Blood Count w/Auto AM LABS Lab 07/12/23 04:00 Ordered Comprehensive Metabolic Panel AM LABS Lab 07/12/23 04:00 Ordered HIV 1&2 Antigen & Antibody Routine Lab 07/08/23 19:48 Received Streptococcus Culture Group A Routine Lab 07/09/23 22:25 Results Vancomycin Trough Timed Lab 07/11/23 21:00 Ordered Radiology Impressions Face CT 07/08/23 14:28 IMPRESSION: Orbital/periorbital cellulitis without preseptal inflammation or collection. Neck CT 07/09/23 15:19 IMPRESSION: 1. Tonsils enlarged bilaterally suggestive of tonsillitis, negative for focal fluid collection to indicate an abscess. 2. Scattered prominent lymph nodes throughout the neck measuring up to 10 mm short axis in the right posterior cervical chain, nonspecific. Laboratory Results WBC 6.75 10^3/uL (3.29-11.43) 12/06/23 06:00 RBC 3.95 10^6/uL (3.85-5.65) 07/11/23 06:00 Hgb 10.20 g/dL (11.27-16.99) L 07/11/23 06:00 Hct 32.6 % (36-47) L 07/11/23 06:00 MCV 82.5 fl (85-98) L 07/11/23 06:00 MCH 25.8 pg (27-33) L 07/11/23 06:00 MCHC 31.3 g/dL (30-55) 07/11/23 06:00 RDW 13.6 % (12.1-15.1) 07/11/23 06:00 Plt Count 209 10^3/cmm (157-399) 07/11/23 06:00 MPV 10.3 fL (7.4-10.4) 07/11/23 06:00 Neut % (Auto) 53.1 % 07/11/23 06:00 Lymph % (Auto) 34.4 % 07/11/23 06:00 [place] % (Auto) 8.9 % 07/11/23 06:00 Eos % (Auto) 3.0 % 07/11/23 06:00 Baso % (Auto) 0.3 % 07/11/23 06:00 Neut # (Auto) 3.59 10^3/uL (1.8-7.7) 07/11/23 06:00 Lymph # (Auto) 2.3 10^3/uL (0.8-4.8) 07/11/23 06:00 [place] # (Auto) 0.6 10^3/uL (0.2-0.9) 07/11/23 06:00 Eos # (Auto) 0.2 10^3/uL (0.0-0.8) 07/11/23 06:00 Baso # (Auto) 0.0 10^3/uL (0.0-0.1) 07/11/23 06:00 Nucleated RBC % (auto) 0 % 07/11/23 06:00 Nucleated RBCs # 0.0 /100WBC 07/11/23 06:00 Sodium 139 mmol/L (136-145) 07/11/23 06:00 Potassium 3.5 mmol/L (3.5-5.1) 07/11/23 06:00 Chloride 105 mmol/L (98-107) 07/11/23 06:00 Carbon Dioxide 20 mmol/L (22-29) L 07/11/23 06:00 Anion Gap 17.5 (5-19) 07/11/23 06:00 BUN 6 mg/dL (6-20) 07/11/23 06:00 Creatinine 0.6 mg/dL (0.5-0.9) 07/11/23 06:00 GFR Calculation 116.6 mL/min (90-130) 07/11/23 06:00 Glucose 92 mg/dL (65-115) 07/11/23 06:00 Calculated Osmolality 285 mOsm/kg (285-295) 07/11/23 06:00 Calcium 8.3 mg/dL (8.5-10.5) L 07/11/23 06:00 Phosphorus 2.5 mg/dL (2.5-4.5) 07/09/23 02:38 Magnesium 2.0 mg/dL (1.7-2.3) 07/09/23 02:38 Iron 18 ug/dL (37-145) L 07/08/23 14:46 TIBC 340 mcg/dl 07/08/23 14:46 % Saturation 5.2 % (20-50) L 07/08/23 14:46 Unsat Iron Binding 322 ug/dL (112-347) 07/08/23 14:46 Total Bilirubin 0.4 mg/dL (0.15-1.2) 07/11/23 06:00 AST 41 U/L (0-32) H 07/11/23 06:00 ALT 112 U/L (0-33) H 07/11/23 06:00 Alkaline Phosphatase 78 U/L (35-105) 07/11/23 06:00 Total Protein 6.7 g/dL (6.6-8.7) 07/11/23 06:00 Albumin 3.3 g/dL (3.5-5.2) L 07/11/23 06:00 Globulin 3.4 g/dL (1.3-4.6) 07/11/23 06:00 Triglycerides 64 mg/dL (0-150) 07/09/23 02:38 Cholesterol 122 mg/dL (0-200) 07/09/23 02:38 LDL Cholesterol, Calc 65 mg/dL (50-129) 07/09/23 02:38 HDL Cholesterol 44 mg/dL (60-100) L 07/09/23 02:38 LDL/HDL Ratio 1.48 RATIO (0.00-3.22) 07/09/23 02:38 Cholesterol/HDL Ratio 2.77 mg/dL (0.0-4.40) 07/09/23 02:38 Vitamin B12 436 pg/mL (232-1245) 07/08/23 14:46 Folate 9.1 ng/mL (4.8-37.3) 07/09/23 02:38 Procalcitonin 0.07 ng/mL (0-0.5) 07/09/23 02:38 Urine Color Red (Yellow) A 07/09/23 11:37 Urine Appearance Bloody (CLEAR) A 07/09/23 11:37 Urine pH 6.5 (5-7) 07/09/23 11:37 Ur Specific [place] 1.015 (1.005-1.030) 07/09/23 11:37 Urine Protein 1+ (Negative) H 07/09/23 11:37 Urine Glucose (UA) Norm (Normal) 07/09/23 11:37 Urine Ketones Negative (Negative) 07/09/23 11:37 Urine Blood 3+ (Negative) H 07/09/23 11:37 Urine Nitrate Negative (Negative) 07/09/23 11:37 Urine Bilirubin 1+ (Negative) H 07/09/23 11:37 Urine Urobilinogen Norm mg/dL (Negative) 07/09/23 11:37 Ur Leukocyte Esterase Negative (Negative) 07/09/23 11:37 Urine RBC Too numerous to cnt /hpf (0-2) H 07/09/23 11:37 Urine WBC 0-4 /hpf (0-5) H 07/09/23 11:37 Ur Squamous Epith Cells 0-4 /hpf (0-5) H 07/09/23 11:37 Amorphous Sediment Not Reportable 07/09/23 11:37 Urine Bacteria Trace /hpf (NONE) 07/09/23 11:37 Nasal Influ A H1 2008 PCR Not detected (NOT DETECT) 07/09/23 22:25 Vancomycin Trough 9.2 ug/mL (10-15) L 07/10/23 13:12 Urine Opiates Screen Positive ng/mL (Negative) H 07/09/23 17:37 Ur Barbiturates Screen Negative ng/mL (Negative) 07/09/23 17:37 Ur Phencyclidine Scrn Negative ng/mL (Negative) 07/09/23 17:37 Ur Amphetamines Screen Negative ng/mL (Negative) 07/09/23 17:37 U Benzodiazepines Scrn Negative ng/mL (Negative) 07/09/23 17:37 Urine Cocaine Screen Negative ng/mL (Negative) 07/09/23 17:37 U Marijuana (THC) Screen Negative ng/mL (Negative) 07/09/23 17:37 Adenovirus (PCR) Detected (NOT DETECT) A 07/09/23 22:25 C. pneumoniae DNA (PCR) Not detected (NOT DETECT) 07/09/23 22:25 Coronavirus 229E (PCR) Not detected (NOT DETECT) 07/09/23 22:25 Hepatitis A IgM Ab Non-reactive (Nonreactive) 07/09/23 20:30 Hep Bs Antigen Non-reactive (Nonreactive) 07/09/23 20:30 Hep B Core IgM Ab Non-reactive (Nonreactive) 07/09/23 20:30 Hepatitis C Antibody Non-reactive (Nonreactive) 07/09/23 20:30 Monoscreen Negative (Negative) 07/09/23 20:30 Human Metapneumovir PCR Not detected (NOT DETECT) 07/09/23 22:25 Influenza A (H1) PCR Not detected (NOT DETECT) 07/09/23 22:25 Influenza A (H3) PCR Not detected (NOT DETECT) 07/09/23 22:25 Influenza Type A (PCR) Not detected (NOT DETECT) 07/09/23 22:25 Influenza Type B (PCR) Not detected (NOT DETECT) 07/09/23 22:25 M. pneumoniae (PCR) Not detected (NOT DETECT) 07/09/23 22:25 Parainfluenza 1 (PCR) Not detected (NOT DETECT) 07/09/23 22:25 Parainfluenza 2 (PCR) Not detected (NOT DETECT) 07/09/23 22:25 Parainfluenza 3 (PCR) Not detected (NOT DETECT) 07/09/23 22:25 Parainfluenza 4 (PCR) Not detected (NOT DETECT) 07/09/23 22:25 RSV Type A (PCR) Not detected (NOT DETECT) 07/09/23 22:25 RSV Type B (PCR) Not detected (NOT DETECT) 07/09/23 22:25 Entero/Rhino (PCR) Not detected (NOT DETECT) 07/09/23 22:25 SARS-CoV-2 (PCR) Not detected (NOT DETECT) 07/09/23 22:25 Group A Strep Rapid Negative (Negative) 07/09/23 22:25 Vitals Last Vital Signs Temp 98.5 F 07/11/23 11:36 Pulse 79 07/11/23 11:36 Resp 17 07/11/23 11:36 BP 124/81 07/11/23 11:36 Pulse Ox 98 07/11/23 11:36 O2 Del Method Room Air 07/11/23 11:36 Discharge Plan Discharge Patient Disposition: Home Condition: Stable Prescriptions: New cefdinir 300 mg capsule 300 mg PO BID 14 Days Qty: 28 0RF Discontinued neomycin-polymyxin B-dexameth 3.5mg/mL-10,000 unit/mL-0.1 % drops,suspension 1 drp ophthalmic (eye) Q6H Rx Instructions: both eyes amoxicillin-pot clavulanate 875-125 mg tablet 1 tab PO BID Discharge Orders: Discharge Order (Routine); Ordered 07/11/23 Ordered By: Kenan Cuevas Referrals: [facility] [Provider Group] (BL tonsillitis We have notified your physician's clinic of the need for a follow-up appointment to be scheduled. If you have not heard from them within the next 2 business days, please call them directly. ) Henrry Vela MD [Physician] - 07/17/23 9:00 am (Orbital cellulitis Referal sent to . ) Mendoza Paredes MD [Primary Care Provider] - 4-7 days (We have notified your physician's clinic of the need for a follow-up appointment to be scheduled. If you have not heard from them within the next 2 business days, please call them directly. ) Patient Instructions: Cefdinir (By mouth), Orbital Cellulitis (GEN), Opioid Safety Activity Restrictions/Additional Instructions: Follow-up with your primary doctor as well as ophthalmology for reassessment of continued improvement from orbital cellulitis. Follow-up with primary provider and ENT for reassessment of tonsillitis. Please have your primary doctor reassess your liver function for continued resolution of transaminitis Please have your primary provider follow-up urine for reassessment of microscopic hematuria for resolution. Maintain isolation over the next week to prevent spread of adenovirus. Return to the hospital in case of any worsening or new concerning symptoms. Discharge Attestations Time Spent in Discharge Care*: greater than 30 min Quality Metrics Clinical Quality Measures [ No reported AMI, CVA or VTE this stay] Coding Level of Care Code 47550 Total time (in minutes) for Discharge: 40 Diagnoses Orbital cellulitis on right H05.011 Failure of outpatient treatment Z78.9 Transaminitis R74.01
[2023-07-11 15:12] VITALS: BP 124/81; PULSE 79; RESP 17; TEMP 36.9; O2SAT 98
[2023-07-12 10:33] LABS: HIV 1 & 2 Antibody Non-Reactive (Non-Reactiv); HIV 1 & 2 Antigen Non-Reactive (Non-Reactiv)
--- NOTE | 2023-08-08 13:11 | P.CONIM_ITS ---
Providers/Reason For Consult 2 Consulting Physician/Specialty*: Dayanna--Henrry Vela Reason for Consult*: orbital cellulitis Attending Physician: Kenan Cuevas Primary Care Provider: Mendoza Paredes MD History of Present Illness History of Present Illness Sharri Rey is a 32 year old female who was treated as an outpatient for orbital cellulitis which has deteriorated on Augmentin and Bactrim. Review of Systems 2 General: Reports: 10 or more systems reviewed and unremarkable except in HPI and below Eyes: Reports: other (With diffusely inflamed periorbital tissue. The conjunctiva is not chemoti) Medications/Allergies Allergies Allergy/AdvReac Type Severity Reaction Status Date / Time No Known Allergies Allergy Verified 07/08/23 13:15 PFSH Acute 2 PFSH: Medical History (Updated 07/12/23 @ 00:01 by FINESSE Skinner) Hx of gestational diabetes mellitus, not currently Ovarian cyst Surgical History (Updated 07/12/23 @ 00:01 by FINESSE Skinner) History of tubal ligation Status post laparoscopic appendectomy History of cholecystectomy Family History Grandmother Breast cancer Paternal Colon cancer Maternal Grandfather Heart disease Maternal Father Stroke Denies family history of Ovarian cancer Diabetes Hypercholesteremia Hypertension Uterine cancer Thyroid disease Social History Smoking and tobacco/nicotine status: former use of tobacco/nicotine Quit status (tobacco/nicotine): has quit using Former quit date comment: Quit on April 17, 2018 -5-pack-year history Alcohol intake: former Substance/Drug Use: never Household members: spouse and children Marital status: Current occupational status: other Details: Homemaker Female Reproductive History: Date of last menstrual period: 06/06/23 Vitals/I&O/Wt Last Vital Signs Temp 98.5 F 07/11/23 15:12 Pulse 79 07/11/23 15:12 Resp 17 07/11/23 15:12 BP 124/81 07/11/23 15:12 Pulse Ox 98 07/11/23 15:12 O2 Del Method Room Air 07/11/23 11:36 Data 07/11/23 06:00 07/11/23 06:00 Other data: no ocular damage at present. Need to modify IV antibiotics and monitor response. A&P Assessment and plan (1) Orbital cellulitis on right: Movement and symptoms, reduction swelling. No pain or eye movement. Denies blurred vision. Some improvement in tenderness and swelling of bilateral lateral neck, but she marbleizing machine tender especially in the back of her neck. We discussed the results of the CT scan with her and her including tonsillitis, lymphadenopathy including posterior chain likely possible for her posterior neck symptoms. Reviewed respiratory viral panel, pending. Reviewed rapid strep, Monospot, noted negative. I do suspect acute viral illness rather than bacterial as discussed with her given some systemic symptoms, he transaminitis, however, for now continue empiric antibiotics due to danger of bacterial orbital cellulitis. She is having some nausea, but otherwise denies vomiting, no diarrhea, no urinary symptoms. She is afebrile, reviewed CBC, noted with a leukocytosis is noted to have some anemia 10.3 though has had this in the past. Platelets WNL. Chemistry reviewed, electrolytes unremarkable, renal function unremarkable. Transaminitis improving, AST down to 86, ALT down to 171. Blood culture reviewed, noted negative. Stop IVF. Appreciate recent A1c. Check vitamin B12, folate levels. HIV pending. For now start on broad-spectrum antibiotics with IV vancomycin and Zosyn. Eyedrops as per ophthalmology. Pain management with [employer] 5 mg every 6 hours as needed, morphine 2 mg every 6 hours as needed Pain control with IV morphine, required dose adjustment, increased up to 4 mg. Continue to reassess pain control. Discussed with case management in rounds. (2) Failure of outpatient treatment: (3) Transaminitis: Noted new transaminitis on review of CMP, 292/2 6 AST/ALT. Respiratory viral panel reviewed, pending. Reviewed and noted unremarkable hepatitis panel. Follow-up CMP reviewed noted with improvement. UDS reviewed, positive for opiates but drawn after already received morphine in the hospital. Plan We discussed the modification of the medications and will monitor her response to those medications Coding Level of Care Code Acute Code for [facility] Diagnoses Orbital cellulitis on right H05.011 Failure of outpatient treatment Z78.9 Transaminitis R74.01
== END 2023-07-11 15:14 | disposition home or self-care (01) | DRG 121 ==
LOC: ER 16:32 → MEDSURG 18:06
PROVIDERS: Student in an Organized Health Care Education/Training Program; Admitting Provider Student in an Organized Health Care Education/Training Program; Emergency Provider Emergency Medicine; PCP Family Medicine; Visit Provider Internal Medicine
DX: H05.011 Cellulitis of right orbit (principal); Z68.41 Body mass index [BMI] 40.0-44.9, adult; Z87.891 Personal history of nicotine dependence; E66.01 Morbid (severe) obesity due to excess calories; R74.01 Elevation of levels of liver transaminase levels; D64.9 Anemia, unspecified; J03.90 Acute tonsillitis, unspecified; H10.9 Unspecified conjunctivitis
CPT/HCPCS: 12345; 36415; 70487; 70491; 80048; 80053; 80061; 80074; 80202; 80306; 81001; 82607; 82746; 83540; 83550; 83735; 84100; 84145; 85025; 86308; 87040; 87081; 87086; 87486; 87581; 87633; 87806; 87880; 94664; 96365; 96367; 96375; 99285; J0696; J1885; J2270; J2405; J2543; J3370; J7030; J7050; Q9967